=== PATIENT | female | born 1960 | race Caucasian/White ===

== ENCOUNTER 2020-03-21 08:38 | Outpatient (CLI) | payer OTHER, SELFPAY ==
--- NOTE | ~2020-03-21 | XR_ITS ---
EXAMINATION: XR hip LT min 2V DATE: 03/21/2020 09:03 INDICATION: Left hip pain. TECHNIQUE: 2 views of left hip were obtained. COMPARISON: None. FINDINGS: Bone alignment is normal. No fracture. There is mild left hip osteoarthritis. IMPRESSION: 1. Mild left hip osteoarthritis. Reviewed, dictated and finalized at location A.
[2020-03-21 10:34] LABS: Alanine Aminotransferase 25 U/L (14-59); Albumin Level 3.3 g/dL (3.4-5.0); Alkaline Phosphatase 79 U/L (46-116); Anion Gap 6 mmol/L (8-16); Aspartate Amino Transferase 12 U/L (15-37); Bilirubin,Total 0.4 mg/dL (0.00-1.00); Blood Urea Nitrogen 11 mg/dL (7-18); Calcium 8.7 mg/dL (8.5-10.1); Carbon Dioxide 31 mmol/L (21-32); Chloride 108 mmol/L (98-108); Cholesterol 173 mg/dL (0-200); Estimated Glomerular Filt Rate 56; Glucose 95 mg/dL (70-99); HDL Direct 50 mg/dL (40-60); LDL Cholesterol Calculated 92 mg/dL (<130); Magnesium 2.1 mg/dL (1.8-2.4); Osmolality Calculated 299 mOsm/kg (285-295); Potassium 4.2 mmol/L (3.5-5.1); Sodium 145 mmol/L (136-145); Total Protein 6.3 g/dL (6.4-8.2); Triglycerides 155 mg/dL (0-150)
== END 2020-03-21 08:39 | disposition home or self-care (01) ==
PROVIDERS: PCP Internal Medicine; Visit Provider Internal Medicine
DX: M25.559 Pain in unspecified hip (principal); I10 Essential (primary) hypertension
CPT/HCPCS: 36415; 73502; 80053; 80061; 83735

== ENCOUNTER 2024-06-24 08:13 | Outpatient (CLI) | payer MEDICARE, SELFPAY ==
[2024-06-24 08:26] LABS: Basophils Absolute Auto 0.03 K/mm3 (0.00-0.10); Basophils Percent Auto 0.5 % (0.0-1.0); Eosinophils Absolute Auto 0.37 K/mm3 (0.02-0.50); Eosinophils Percent Auto 5.6 % (1.0-6.0); Hematocrit 42.2 % (35.0-42.0); Hemoglobin 14.4 g/dL (11.7-13.8); Immature Granulocyte Absolute 0.02 K/mm3 (0.00-0.00); Immature Granulocyte Percent A 0.3 % (0.0-0.0); Lymphocytes Absolute Auto 2.17 K/mm3 (1.10-4.50); Lymphocytes Percent Auto 32.6 % (18.0-42.0); Mean Corpuscular HGB Conc 34.1 g/dL (32-36); Mean Corpuscular Hemoglobin 30.3 pg (27.0-31.0); Mean Corpuscular Volume 88.7 fL (78.0-102.0); Mean Platelet Volume 10.1 fl (9.2-11.8); Monocytes Absolute Auto 0.57 K/mm3 (0.10-0.90); Monocytes Percent Auto 8.6 % (2.0-11.0); Neutrophils Percent Auto 52.4 % (50.0-70.0); Platelet Count Result 202 K/mm3 (150-420); Red Blood Count 4.76 M/mm3 (4.20-5.40); Red Cell Distribution Width 12.9 % (11.6-14.4); White Blood Count 6.7 K/mm3 (4.8-10.8)
[2024-06-24 09:06] LABS: Alanine Aminotransferase 39 U/L (14-59); Albumin Level 3.4 g/dL (3.4-5.0); Alkaline Phosphatase 93 U/L (46-116); Anion Gap 9 mmol/L (4-12); Aspartate Amino Transferase 14 U/L (15-37); Bilirubin,Total 0.4 mg/dL (0.00-1.00); Blood Urea Nitrogen 9 mg/dL (7-18); Calcium 9.4 mg/dL (8.5-10.1); Carbon Dioxide 29 mmol/L (21-32); Chloride 106 mmol/L (98-108); Cholesterol 194 mg/dL (0-200); Estimated Glomerular Filt Rate 60; Glucose 84 mg/dL (70-99); HDL Direct 50 mg/dL (40-60); LDL Cholesterol Calculated 108 mg/dL (<130); Osmolality Calculated 295 mOsm/kg (285-295); Potassium 4.2 mmol/L (3.5-5.1); Sodium 144 mmol/L (136-145); Total Protein 6.1 g/dL (6.4-8.2); Triglycerides 178 mg/dL (0-150)
== END 2024-06-24 08:14 | disposition home or self-care (01) ==
PROVIDERS: PCP Internal Medicine; Visit Provider Internal Medicine
DX: I10 Essential (primary) hypertension (principal)
CPT/HCPCS: 36415; 80053; 80061; 85025

== ENCOUNTER 2024-08-03 08:48 | Emergency (ER) | payer MEDICARE, OTHER, SELFPAY ==
--- NOTE | ~2024-08-03 | XR_ITS ---
EXAMINATION: XR heel LT min 2V DATE: 08/03/2024 09:51 INDICATION: Left heel pain. TECHNIQUE: 2 views of left calcaneus were obtained. COMPARISON: None. FINDINGS: Alignment is normal. No fracture. Joint spaces are normal. There are enthesophytes at the p osterior and plantar aspects of calcaneal tuberosity. IMPRESSION: 1. No fracture. Reviewed, dictated and finalized at location A. ING MACHINE BUFFER IMPRESSION: 1. No fracture.
--- NOTE | ~2024-08-03 | XR_ITS ---
EXAMINATION: XR foot LT min 3V DATE: 08/03/2024 09:50 INDICATION: Left heel pain. TECHNIQUE: 4 views of left foot were obtained. COMPARISON: None. FINDINGS: There is moderate hallux valgus. No fracture. Joint spaces are normal. There are enthesophy johan at the posterior and plantar aspects of calcaneal tuberosity. IMPRESSION: 1. Moderate hallux valgus. Reviewed, dictated and finalized at location A. TS ANALYST IMPRESSION: 1. Moderate hallux valgus.
[2024-08-03 08:48] VITALS: BP 151/88; PULSE 75; RESP 16; TEMP 36.8; O2SAT 96
--- NOTE | 2024-08-03 08:55 | ED_ITS ---
HPI - Extremity Injury (Lower) General Chief Complaint: Extremity Injury, Lower Stated Complaint: left foot pain Time Seen by Provider: 08/03/24 08:54 Source: patient Mode of arrival: ambulatory Limitations: no limitations History of Present Illness HPI Narrative: patient is a 64-year-old female with a left foot plantar pain and calcaneus pain for the past 5 days. Her only change has been a pair of slippers that she has been using in correlation of time frame. No major injury or changes. MD complaint: other ( Left heel and plantar pain) Onset (ago): day(s) (5) Type of Injury: other ( no injury) Place: home Severity: moderate Severity scale (1-10): 5 Relieving factors: immobilization Exacerbating factors: weight bearing Context: other ( no injury occurred and worse in the morning) Associated symptoms: swelling and able to partially bear weight Other symptoms: none Treatments prior to arrival: other ( none) Related Data Home Medications ?Medication ?Instructions ?Recorded ?Confirmed ?Last Taken ?Type atorvastatin 40 mg tablet 40 mg PO QPM 03/26/24 03/26/24 Unknown History lisinopril 5 mg tablet 5 mg PO DAILY 03/26/24 03/26/24 Unknown History omeprazole 40 mg capsule,delayed 40 mg PO DAILY 03/26/24 03/26/24 Unknown History release Allergies Allergy/AdvReac Type Severity Reaction Status Date / Time No Known Allergies Allergy Verified 08/03/24 09:00 Review of Systems Review of Systems: All systems reviewed & are unremarkable except as noted in HPI and below Constitutional: Constitutional: Reports no additional constitutional complaints Eyes: Eyes: Reports no additional eye complaints ENT: Reports system reviewed and no additional complaints, except as documented Cardiovascular: Cardiovascular: Reports no additional cardiovascular complaints Respiratory: Respiratory: Reports no additional respiratory complaints Gastrointestinal: Gastrointestinal: Reports no additional gastrointestinal complaints Genitourinary: Genitourinary: Reports no additional female genitourinary complaints Musculoskeletal: Musculoskeletal: Reports no additional musculoskeletal complaints Integumentary/Breasts: Skin/Breast: Reports system reviewed and no additional complaints, except as docu Neurologic: Reports system reviewed and no additional complaints, except as documented Psychiatric: Psychiatric: Reports no additional psychiatric complaints Endocrine: Endocrine: Reports no additional endocrine complaints Hematologic/Lymphatic: Hematologic/Lymphatic: Reports no additional hematologic/lymphatic complaints Allergic/Immunologic: Allergic/Immunologic: Reports no additional allergic/immunologic complaints PMFSH Past Medical History Medical History Screening mammogram for breast cancer Hypertension Hyperlipemia Surgical History Surgical History History of tubal ligation Family History Family History Other Diabetes mellitus Family history of alcoholism Family history of cardiovascular disease Hypertension Social History Social History Smoking status: Former smoker Smoking end date: 08/05/92 Alcohol intake: never Substance use: never Substance use type: does not use Do You Feel Safe in your Home?: Yes Lack of Transportation: No Lack of Food: Never True Current Housing: I Have Housing Concerned About Future Housing: No Difficulty Paying Gas/Electric Bills: No Difficulty Paying for Meds: No Currently Unemployed: No Education: Bachelor's Degree Difficulty w/ Childcare or Family Care: No Living arrangements: with family Occupation/Education: retired Gender identity (if verbalized by the patient): Female Exam Const: General: healthy appearing Nutritional Appearance: well nourished Orientation/consciousness: patient oriented x3 HENMT: Head: normal to inspection Ears: external ears normal Face/Nose/Sinus: Normal external nose present Eyes: Conjunctivae: conjunctivae normal Pupils: Equal, round and reactive pupils present EOM: EOMs intact bilaterally Neck: Neck: normal visual inspection Chest: Chest palpation & inspection: normal inspection of the chest Resp: Effort & Inspection: normal respiratory effort and not labored Auscultation: clear to auscultation bilaterally and no crackles Cardio: Rate: regular rate Rhythm: regular rhythm Heart sounds: no murmurs GI: Inspection: non-distended GI Palp: Yes Soft to palpation and No Tenderness to palpation present (GI) Auscultation: normal bowel sounds : General: Yes bladder normal to palpation Back/Spine/Pelvis: Back: no CVA tenderness Skin: General skin exam: normal color Rashes: no rashes Wounds: no wounds Neuro: General: patient oriented x3 Cranial nerves: Yes Nystagmus not present Speech: normal speech Extrem: General: normal to inspection Other: slightly tender left plantar proximal foot as well as calcaneus but no major findings; slight swelling of the left foot; Homans sign negative and nontender or changes of the calf to suspect DVT Psych: Mental Status: mental status grossly normal Affect: normal affect Attitude: cooperative Course Vital Signs Vital signs: Vital Signs Temperature 36.8 C 08/03/24 08:48 Pulse Rate 75 08/03/24 08:48 Respiratory Rate 16 08/03/24 08:48 Blood Pressure 151/88 H 08/03/24 08:48 Pulse Oximetry 96 08/03/24 08:48 Oxygen Delivery Room Air 08/03/24 08:48 Temperature 36.8 C 08/03/24 08:48 Pulse Rate 75 08/03/24 08:48 Respiratory Rate 16 08/03/24 08:48 Blood Pressure 151/88 H 08/03/24 08:48 Pulse Oximetry 96 08/03/24 08:48 Oxygen Delivery Room Air 08/03/24 08:48 MDM - Extremity Injury (Lower) MDM Narrative Medical decision making narrative: patient is a 64-year-old female with left foot pain. We will get an x-ray. Likely this will respond to steroids if the x-ray is negative. Imaging Data Attestation: I personally reviewed and interpreted this imaging study as follows: Radiologist's impression: X-ray of the left foot and heel show osteophytes and otherwise negative for acute process Discharge Plan Discharge Clinical Impression: Plantar fasciitis, left Osteophyte Qualifiers: Osteophyte location: foot Laterality: left Qualified Code(s): M25.775 - Osteophyte, left foot Patient Disposition: Home, Self-Care Condition: Stable Instructions: Plantar Fasciitis (ED) Patient Language: Sri [place]ankan Prescriptions: New methylprednisolone [Medrol (Gilberto)] 4 mg tablets,dose pack See Rx Instructions .ROUTE .COMPLEX Qty: 21 0RF Rx Instructions: orally per package directions indomethacin 50 mg capsule 50 mg PO TID PRN (Reason: pain) Qty: 30 0RF Rx Instructions: administer with food or milk No Action lisinopril 5 mg tablet 5 mg PO DAILY omeprazole 40 mg capsule,delayed release(DR/EC) 40 mg PO DAILY atorvastatin 40 mg tablet 40 mg PO QPM Follow-up/Referrals: Sunny,MD Tacos [Primary Care Provider] - Time of Disposition: 10:54
[2024-08-03 10:58] VITALS: BP 157/78; PULSE 65; RESP 16; O2SAT 96
--- OUTSIDE RECORDS SUMMARY | 2024-08-10 17:50 | XMS_ITS | Continuity of Care Document ---
Author Name [facility] Organization [facility] Care Team Providers Care Scuba Instructor Name Role Phone [facility] Unavailable Unavailable Problems Combined list of problems from Department of Defense and Veterans Affairs facilities. It does not include entries that were removed or entered in error. Problem Status Onset Date Problem Type Date of Resolution Comments Source Laboratory Studies Inactive Condition Do D visit for: administrative purpose Inactive Condition [facility] abdominal pain Inactive Condition Diff- PUD, gallstones, pancreatitis. Labs/rads as below. Sx control w/ phenergan. ER w/ worsening episode. DoD Medications Combined list of outpatient medications from Department of Defense and Veterans Affairs facilities.Medications provided include 1) outpatient medications from the last 15 months, and 2) patient-reported medications. Medication Details Route Status Patient Instructions Prescription Expires Prescription Number Last Dispense Date Ordering Provider Order Date Order Qty Source ALBUTEROL SULFATE HFA (albuterol sulfate), 90 MCG, HFA AER AD, INHALATION, TEVA [place], 8.5 g CANISTER Cancele d [id number] : 2023 0 Pharmac y Data Transac tion Service Facilit y ALBUTEROL SULFATE HFA (albuterol sulfate), 90 MCG, HFA AER AD, INHALATION, TEVA [place], 8.5 g CANISTER Active [id number] 4 2023 8.5 Pharmac y Data Transac tion Service Facilit y AMOX TR-POTASSIU M CLAVULANATE (AMOXICILLI N/POTASSIUM CLAV), 875-125 MG, TABLET, ORAL, SANDOZ, 20 ea. BOTTLE Active [id number] 4 2023 20 Pharmac y Data Transac tion Service Facilit y atorvastati n (U/D) 40 MG ORAL TAB Take with food/mil k.Take or use exactly as directed .Obtain advice for OTCs.Do not take if .Avoid grapefru it and grapefru it juice. 07/01/2024 [id number] 3 [address] [place] [address] Maico GRIMALDO ([facility]) atorvastati n 20 mg tablet See Instruct ions, # 90 EA, 0 total refill(s ), Hard Stop Complet ed 03/31/2024 90.0 Ambulat ory Pharmac y atorvastati n 20 mg tablet 20 mg, Oral, Daily, # 90 EA, 1 total refill(s ), Hard Stop Oral (given by mouth) Discont inued 07/02/2023 90.0 Ambulat ory Pharmac y atorvastati n 40 mg tablet 40 mg, Oral, Daily, # 90 EA, 0 total refill(s ), Hard Stop Oral (given by mouth) Complet ed 05/29/2024 90.0 Ambulat ory Pharmac y atorvastati n 40 mg tablet 40 mg, Oral, Daily, # 90 EA, 1 total refill(s ), Hard Stop Oral (given by mouth) Discont inued 03/02/2024 90.0 Ambulat ory Pharmac y atorvastati n 40 mg tablet 40 mg, Oral, Daily, # 90 EA, 0 total refill(s ), Hard Stop Oral (given by mouth) Ordered 08/27/2024 90.0 Ambul at ory Pharmac y AZITHROMYCI N (azithromyc in), 250 MG, TABLET, ORAL, SANDOZ, 6 ea. BLIST PACK Cancele d [id number] : 2023 0 Pharmac y Data Transac tion Service Facilit y Benzonatate (TrabajoPanel) 100 CAPSULE in 1 BOTTLE Active [id number] 09/07/19 2 4 2023 28 Pharmac y Data Transac tion Service Facilit y Lisinopril (Brand Name) Tablet 5 mg Oral Be careful if taking OTCs.Jim e or use exactly as directed .Do not take if . 06/30/2024 [id number] 3 [address] [place] [address] Maico GRIMALDO ([facility]) lisinopril 5 mg tablet See Instruct ions, # 90 EA, 0 total refill(s ), Hard Stop Discont inued 03/02/2024 90.0 Ambulat ory Pharmac y lisinopril 5 mg tablet 5 mg, Oral, Daily, # 90 EA, 0 total refill(s ), Hard Stop Oral (given by mouth) Complet ed 05/29/2024 90.0 Ambulat ory Pharmac y lisinopril 5 mg tablet 5 mg, Oral, Daily, # 90 EA, 0 total refill(s ), Hard Stop Oral (given by mouth) Ordered 08/27/2024 90.0 Ambul at ory Pharmac y Omeprazole (Prilosec Eq.) Capsule Conventiona l 40 mg Oral Take or use exactly as directed .Obtain advice for OTCs.Swa llow whole. 06/30/2024 [id number] 3 [address] [place] [address] Maico GRIMALDO ([facility]) omeprazole DR 40 mg capsule See Instruct ions, # 90 EA, 0 total refill(s ), Hard Stop Discont inued 03/02/2024 90.0 Ambulat ory Pharmac y omeprazole DR 40 mg capsule 40 mg, Oral, Daily, # 90 EA, 0 total refill(s ), Hard Stop Oral (given by mouth) Complet ed 05/29/2024 90.0 Ambulat ory Pharmac y omeprazole DR 40 mg capsule 40 mg, Oral, Daily, # 90 EA, 0 total refill(s ), Hard Stop Oral (given by mouth) Ordered 08/27/2024 90.0 Ambul at ory Pharmac y Allergies, Adverse Reactions, Alerts Combined list of allergies from Department of Defense and Veterans Affairs facilities. It does not include entries that were removed or entered in error. Substance Category Reaction Severity Reaction type Status Date Reported Comments Source No Known Allergies Drug allergy (disorder) active 12/08/[address] [place] [address] Maico GRIMALDO ([facility]) Vital Signs Combined list of inpatient and outpatient Vital Signs from Department of Defense and Veterans Affairs, ranging from 12 months to all on record, depending upon the facility. Vital Sign Value Date Comments Source No data available for this section Ambulatory Pharmacy Encounters Combined list of: 1) Encounters from Department of Veterans Affairs facilities going back up to thelast 18 months. 2) Encounters from the Department of Defense facilities going back up to 280 months. Location Location Details Encounter Type Encounter Number Reason For Visit Attending Provider ADM Date DC Date Status Disposition Source [address] [place] [address])([facility] Non-[facility]ME [facility]) OUTPATIENT [id number] STOMACH CRAMPS WAKING UP NIGHTS JUANITALORENZO Mcdonald Ana 12/06 Released w/o Limitations [address] [place] [address] [facility]F amily Practic e Non-GME FHI1) [address] [place] [address])(Fam levi Practice Non-GME FHI1) TELE CONSULT [id number] pt wants lab results from [facility] ELIZONDOETT SIMEON 12/[address] [place] [address])(F amily Practic e Non-GME FHI1) [address] [place] [address])([facility]am [facility]vi Practice Non-GME [facility]) TELE CONSULT [id number] Lab Results CARLTON MONTOYAE 12/[address] [place] [address])(F amily Practic e Non-GME FHI1) Procedures Combined list of: 1) Procedures from Department of Veterans Affairs facilities [facility], not all [place] non-surgical procedures are included; 2) All procedures from the Department of Defense facilities. Procedure Procedure Type Code Date Perfomer Comments Sourc e No data available for this section Ambulatory P harmacy Social History Combined list of available smoking, tobacco, and other social history from Department of Defense and Veterans Affairs facilities. Social History Type Response Date Comment Sourc e This section is an empty social history section. DoD Assessment and Plan Combined list of future care activities from Department of Defense and Veterans Affairs facilities (e.g., assessment and plan notes, appointments, orders, and referrals). Additional future care activities may be listed in the Plan of Care section. Result Assessment and Plan Date Source Assessment and Plan No data available for this section 08/10/2024 Ambulatory Pharmacy Functional Status Combined list of recent functional and cognitive assessments recorded at [facility] Defense and [facility] ([place]).[facility] Functional Marshall Measurement (FIM) Scale: 1 = Total Assistance (Subject = 0% +), 2 = Maximal Assistance (Subject = 25% +), 3 = Moderate Assistance (Subject = 50% +), 4 = Minimal Assistance (Subject = 75% +), 5 = Supervision, 6 = Modified Marshall (Device), 7 = Complete Marshall (Timely, Safely). Assessment Date/Time Source Assessment Type Assessment Skill Assessment Score Assessment Details No data available for this section
--- OUTSIDE RECORDS SUMMARY | 2024-08-10 17:51 | XMS_ITS | Encounter Summary ---
Author Organization [facility] Address [address] [place] [address] Care Team Providers Care Metrology Engineer Name Role Phone Tacos Correa MD Primary Care Provider [phone] Reason for Visit * Reason Comments Toe Injury The patient hit her right great toe on a door, it happened a week ago. Encounter Details Date Type Department Care Team (Late st Contact Info) Description 01/15/2018 1:45 PM CDT Office Visit [facility] [address] [place] [address] [place] [address] Fredrick Lloyd NP [address] [place], [place] [id number] Paronychia of great toe, right (Primary Dx) Social History Tobacco Use Types Packs/Day Years Used Date Smoking Tobacco: Former Smokeless Tobacco: Never Comments Unknown Sex and Gender Information Value Date Recorded Sex Assigned at Not on file Legal Sex Female 1:40 PM CDT Gender Identity Not on file Sexual Orientation Not on file documented as of this encounter Last Filed Vital Signs Vital Sign Reading Time Taken Comments Blood Pressure 140/84 01/15/2018 1:53 PM CDT Pulse 67 01/15/2018 1:53 PM CDT Temperature 36.7 ??C (98 ??F) 01/15/2018 1:53 PM CDT Respiratory Rate 16 01/15/2018 1:53 PM CDT Oxygen Saturation 97% 01/15/2018 1:53 PM CDT Inhaled Oxygen Concentration - - Weight 93.4 kg (205 lb 12.8 oz) 01/15/2018 1:53 PM CDT Height 163.8 cm (5' 4.5 ) 01/15/2018 1:53 PM CDT Body Mass Index 34.78 01/15/2018 1:53 PM CDT documented in this encounter Patient Instructions * Patient Instructions* Fredrick Lloyd, PIPER INSTALLER - 01/15/2018 2:11 PM CDT Take the antibiotic as directed, use the topical antibiotic as directed. If you get increased pain or swelling in area with streaking go to the emergency department. Follow up with your PCP if not improving. Patient Education Paronychia WHAT YOU NEED TO KNOW: What is paronychia? Paronychia is an infection of your nail fold caused by bacteria or a fungus. The nail fold is the skin around your nail. Paronychia may happen suddenly and last for 6 weeks or longer. You may have paronychia on more than 1 finger or toe. What increases my risk for paronychia? ?? Trauma: Any injury that causes your skin to tear can lead to infection. Your risk is increased if you have ingrown nails, bite your nails, or wear acrylic nails. ?? Frequent contact with water: Jobs that require you to soak your hands in water often may increase your risk for paronychia. Common examples are nurses, cooks, and in house counsel. Swimmers also have increased risk. ?? Medical conditions: Diabetes and other conditions that cause a weak immune system can increase your risk. Some examples are skin cancer, psoriasis, HIV, and lupus. ?? Chemicals: Contact with soaps, detergents, and other chemicals can cause inflammation and lead to paronychia. ?? Allergies: Allergies to certain foods, nail maltese, or latex can cause inflammation and increaseyour risk. What are the signs and symptoms of paronychia? ?? Red, hot, swollen, painful nail fold ?? Pus coming out of your nail fold when you press on it ?? Nail that pulls away from your nail fold and may fall off ?? Changes in nail color, such as green nails ?? Fever ?? Thick, rough nail, or ridges in the nail How is paronychia diagnosed? Your healthcare provider will examine your nails and ask about your symptoms. He may press on your infected nail to see if pus drains from it. He will send any pus to a lab for tests to learn what germ is causing your infection. This is called a fluid culture. How is paronychia treated? ?? Medicine: ?? Td vaccine is a booster shot used to help prevent tetanus and diphtheria. The Td booster may be given to adolescents and adults every 10 years or for certain wounds and injuries. ?? Antibiotics: This medicine will help fight or prevent an infection caused by bacteria. It may begiven as a pill, cream, or ointment. ?? Steroids: This medicine will help decrease inflammation. It may be given as a pill, cream, or ointment. ?? Antifungal medicine: This medicine helps kill fungus that may be causing your infection. It may be given as a cream or ointment. ?? NSAIDs: These medicines decrease pain and swelling. NSAIDs are available without a doctor's order. Ask your healthcare provider which medicine is right for you. Ask how much to take and when to take it. Take as directed. NSAIDs can cause stomach bleeding and kidney problems if not taken correctly. ?? Procedures: You may need surgery to drain an abscess (pus pocket) in your finger or toe. Your nail may need to be removed. Infected tissue around your nail may also need to be removed. What are the risks of paronychia? Your nail may become loose, deformed, or fall off. The infection may form a large abscess on your nail. The infection may spread to nearby tissue and bone. How can paronychia be prevented? ?? Avoid chemicals and allergens that may harm your skin and nails. This includes soaps, laundry detergents, and nail products. ?? Keep your nails clean and dry. Do not soak your nails in water. Use cotton- lined rubber gloves or wear 2 rubber gloves if you work with food or water. The gloves will help protect your nail folds. ?? Keep your nails short. Do not bite your nails, pick at your hangnails, suck your fingers, or wear fake nails. Bring your own nail tools when you go to the nail salon. How can I manage my symptoms? ?? Soak your nail: Soak your nail in a mixture of equal parts vinegar and water 3 or 4 times each day. This will help decrease inflammation. ?? Apply a warm compress: Soak a washcloth in warm water and place it on your nail. This will help decrease inflammation. ?? Elevate: Raise your nail above the level of your heart as often as you can. This will help decrease swelling and pain. Prop your nail on pillows or blankets to keep it elevated comfortably. ?? Use lotion: Apply lotion after you wash your hands. This will prevent the skin from becoming toodry. When should I contact my healthcare provider? ?? Your nail becomes loose, deformed, or falls off. ?? You have a large abscess on your nail. ?? You have questions or concerns about your condition or care. When should I seek immediate care? ?? You have severe nail pain. ?? The inflammation spreads to your hand or arm. CARE AGREEMENT: You have the right to help plan your care. Learn about your health condition and how it may be treated. Discuss treatment options with your caregivers to decide what care you want to receive. You always have the right to refuse treatment. The above information is an surgery aide only. It is not intended as medical advice for individual conditions or treatments. Talk to your doctor, nurse or pharmacist before following any medical regimen to see if it is safe and effective for you. ?? 2016 [employer]. Information is for End User's use only and may not be sold, redistributed or otherwise used for commercial purposes. All illustrations and images included in CareNotes?? are the copyrighted property of [employer] or [employer]. documented in this encounter Ordered Prescriptions Prescription Sig Dispense Quantity Refills Last Filled Start Date End Date sulfamethoxazole-t rimethoprim (BACTRIM,SEPTRA) 800-160 mg per tabletIndications: Paronychia of great toe, right Take 1 tablet by mouth 2 (two) times a day for 7 days. 14 tablet 01/15/2018 8 mupirocin (BACTROBAN) 2 % ointmentIndication s:Paronychia of great toe, right Apply topically 3 (three) times a day for 10 days. 22 g 01/15/2018 8 documented in this encounter Progress Notes * Fredrick Lloyd, PIPER INSTALLER - 01/15/2018 1:45 PM CDT Images from the original note were not included. Subjective Patient ID: Olinda Martin is a 57 y.o. female. Toe Injury (The patient hit her right great toe on a door, it happened a week ago.) Hit great toe on right foot on bottom of a door last week has had some drainage, increased pain andheat in area for the past 3 days. Tired topical antibiotic on area without relief. No fever systemically. Review of Systems Constitutional: Negative for activity change, fatigue and fever. HENT: Negative for congestion. Respiratory: Negative for shortness of breath. Cardiovascular: Negative for chest pain. Gastrointestinal: Negative for abdominal pain. Genitourinary: Negative for dysuria. Musculoskeletal: Negative for back pain. Skin: Positive for wound (right great toe). Neurological: Negative for headaches. Psychiatric/Behavioral: Negative for behavioral problems. Objective Physical Exam Constitutional: She is oriented to person, place, and time. She appears well- developed and well-nourished. HENT: Head: Normocephalic. Eyes: Conjunctivae are normal. Neck: Normal range of motion. Cardiovascular: Normal rate, regular rhythm and normal heart sounds. Pulmonary/Chest: Effort normal and breath sounds normal. Abdominal: Soft. Musculoskeletal: Normal range of motion. Feet: Neurological: She is alert and oriented to person, place, and time. Skin: Skin is warm and dry. No rash noted. Psychiatric: She has a normal mood and affect. Vitals: 01/15/18 1353 BP: 140/84 BP Location: Right arm Patient Position: Sitting Pulse: 67 Resp: 16 Temp: 36.7 ??C (98 ??F) TempSrc: Oral SpO2: 97% Weight: 93.4 kg (205 lb 12.8 oz) Height: 163.8 cm (5' 4.5 ) Assessment/Plan Diagnoses and all orders for this visit: Paronychia of great toe, right (Primary) - mupirocin (BACTROBAN) 2 % ointment; Apply topically 3 (three) times a day for 10 days. - sulfamethoxazole-trimethoprim (BACTRIM,SEPTRA) 800-160 mg per tablet; Take 1 tablet by mouth 2 (two) times a day for 7 days. Take the antibiotic as directed, use the topical antibiotic as directed. If you get increased pain or swelling in area with streaking go to the emergency department. Follow up with your PCP if not improving. No notes on file documented in this encounter Plan of Treatment Not on file documented as of this encounter Visit Diagnoses Diagnosis Paronychia of great toe, right- Primary documented in this encounter Historical Medications * This list may reflect changes made after this encounter. Medication Sig Dispense Quantity Refills Last Filled Start D ate End Date ergocalciferol (VITAMIN D) 50,000 unit capsule 01/06/2018 omeprazole (PriLOSEC) 20 mg capsule 11/12/2017 atorvastatin (LIPITOR) 10 mg tablet 10/24/2017 lisinopril (PRINIVIL,ZESTRIL) 5 mg tablet 10/24/2017 added in this encounter Care Teams Metrology Engineer Relationship Specialty Start Date End Date Tacos Correa MD PCP - General Internal Medicine 01/15/18 documented as of this encounter
--- OUTSIDE RECORDS SUMMARY | 2024-08-10 17:51 | XMS_ITS | Clinical Summary ---
Author Organization [id number] Address [address] [place] [address] Care Team Providers Care Sliver Lap Machine Tender Name Role Phone Tacos Correa MD Primary Care Provider [phone] Allergies No known active allergies Medications lisinopril (PRINIVIL,ZESTRIL) 5 mg tablet 10/24/2017 Active atorvastatin (LIPITOR) 10 mg tablet 10/24/2017 Active omeprazole (PriLOSEC) 20 mg capsule 11/12/2017 Active ergocalciferol (VITAMIN D) 50,000 unit capsule 01/06/2018 Active Active Problems No known active problems Surgical History Surgery Date Site/Laterality Comments TUBAL LIGATION Medical History Medical History Date Comments Hyperlipidemia Hypertension GERD (gastroesophageal reflux disease) Family History Medical History Relation Name Comments Diabetes Father Relation Name Status Comments Father Social History Tobacco Use Types Packs/Day Years Used Date Smoking Tobacco: Former Smokeless Tobacco: Never Personal Safety Answer Date Recorded Getting School Help Needed Not on file 10/19 Comments Unknown Sex and Gender Information Value Date Recorded Sex Assigned at Not on file Legal Sex Female 1:40 PM CDT Gender Identity Not on file Sexual Orientation Not on file Obstetrics History Last Filed Vital Signs Vital Sign Reading [...] Mass Index 34.78 01/15/2018 1:53 PM CDT Plan of Treatment Not on file Insurance Care Teams Sliver Lap Machine Tender Relationship Specialty Start Date End Date Tacos Correa MD PCP - General Internal Medicine 01/15/18
--- OUTSIDE RECORDS SUMMARY | 2024-08-10 17:51 | XMS_ITS | Referral Summary ---
Author Organization [facility] [address] [place] Address [address] [place] [phone] Care Team Providers Care Reforestation Worker Name Role Phone Tacos Correa MD Primary Care Provider [phone] Allergies No known active allergies Medications lisinopril (PRINIVIL,ZESTRIL) 5 mg tablet 10/24/2017 Active atorvastatin (LIPITOR) 10 mg tablet 10/24/2017 Active omeprazole (PriLOSEC) 20 mg capsule 11/12/2017 Active ergocalciferol (VITAMIN D) 50,000 unit capsule 01/06/2018 Active Active Problems No known active problems Social History Tobacco Use Types Packs/Day Years Used Date Smoking Tobacco: Former Smokeless Tobacco: Never Personal Safety Answer Date Recorded Getting School Help Needed Not on file 10/19 Comments Unknown Sex and Gender Information Value Date Recorded Sex Assigned at Not on file Legal Sex Female 1:40 PM CDT Gender Identity Not on file Sexual Orientation Not on file Last Filed Vital Signs Vital Sign Reading [...] Treatment Not on file Insurance Care Teams Reforestation Worker Relationship Specialty Start Date End Date Tacos Correa MD PCP - General Internal Medicine 01/15/18
--- OUTSIDE RECORDS SUMMARY | 2024-08-10 20:33 | XMS_ITS | Encounter Summary ---
Author Organization [facility] Address [address] [place] [address] [place] [address] Care Team Providers Care Land Department Head Name Role Phone Tacos Correa MD Primary Care Provider [phone] Reason for Visit * Reason Comments Toe Injury The patient hit her right great toe on a door, it happened a week ago. Encounter Details Date Type Department Care Team (Late st Contact Info) Description 01/15/2018 1:45 PM CDT Office Visit [facility] [address] [place] [address] [place] [address] Fredrick Lloyd NP [address] [facility] [place], [place] [id number] Paronychia of great toe, right (Primary Dx) [...] Patient Instructions * Patient Instructions* Fredrick Lloyd, COMPUTER AIDED DRAFTER - 01/15/2018 2:11 PM CDT Take the [...] paronychia. Common examples are nurses, cooks, and baker bread. Swimmers also have increased risk. ?? Medical conditions: Diabetes and other conditions that cause a weak immune system can increase your risk. Some examples are skin cancer, psoriasis, HIV, and lupus. ?? Chemicals: Contact with soaps, detergents, and other chemicals can cause inflammation and lead to paronychia. ?? Allergies: Allergies to certain foods, nail armenian, or latex can cause inflammation and increaseyour [...] refuse treatment. The above information is an kennel aide only. It is not intended as medical advice for individual conditions or treatments. Talk to your doctor, nurse or pharmacist before following any medical regimen to see if it is safe and effective for you. ?? 2016 [employer]. Information is for End User's use only and may not be sold, redistributed or otherwise used for commercial purposes. All illustrations and images included in CareNotes?? are the copyrighted property of [employer] or [employer]. documented in this encounter Ordered Prescriptions Prescription [...] this encounter Progress Notes * Fredrick Lloyd, COMPUTER AIDED DRAFTER - 01/15/2018 1:45 PM CDT Images from [...] 10/24/2017 added in this encounter Care Teams Land Department Head Relationship Specialty Start Date End Date Tacos Correa MD PCP - General Internal Medicine 01/15/18 documented as of this encounter
--- OUTSIDE RECORDS SUMMARY | 2024-08-10 20:33 | XMS_ITS | Referral Summary ---
Author Organization [facility] [address] [place] Address [address] [place] [address] Care Team Providers Care Flatbed Driver Name Role Phone Tacos Correa MD Primary Care Provider [phone] Allergies No known active allergies Medications lisinopril [...] Treatment Not on file Insurance Care Teams Flatbed Driver Relationship Specialty Start Date End Date Tacos Correa MD PCP - General Internal Medicine 01/15/18
--- OUTSIDE RECORDS SUMMARY | 2024-08-10 20:33 | XMS_ITS | Continuity of Care Document ---
Author Name [facility] Organization [facility] Care Team Providers Care Sole Edge Inker Machine Name Role Phone [facility] Unavailable Unavailable Problems Combined list of problems from Department of Defense and Veterans Affairs facilities. It does not include entries that were removed or entered in error. Problem Status Onset Date Problem Type Date of Resolution Comments Source Laboratory Studies Inactive Condition Do D visit for: administrative purpose Inactive Condition [facility] abdominal pain Inactive Condition Diff- PUD, gallstones, [...] TEVA [place], 8.5 g CANISTER Cancele d [id number] : 2023 0 Pharmac y Data Transac tion Service Facilit y ALBUTEROL SULFATE HFA (albuterol sulfate), 90 MCG, HFA AER AD, INHALATION, TEVA [place], 8.5 g CANISTER Active [id number] 4 2023 8.5 Pharmac y Data Transac tion Service Facilit y AMOX TR-POTASSIU M CLAVULANATE (AMOXICILLI N/POTASSIUM CLAV), 875-125 MG, TABLET, ORAL, SANDOZ, 20 ea. BOTTLE Active [id number] 4 2023 20 Pharmac y Data Transac tion Service Facilit y atorvastati n (U/D) 40 MG ORAL TAB Take with food/mil k.Take or use exactly as directed .Obtain advice for OTCs.Do not take if .Avoid grapefru it and grapefru it juice. 07/01/2024 [id number] 3 [address] [place] [address] Ma[facility] GRIMALDO ([facility]) atorvastati n 20 mg tablet See [...] SANDOZ, 6 ea. BLIST PACK Cancele d [id number] : 2023 0 Pharmac y Data Transac tion Service Facilit y Benzonatate ([email or web address]) 100 CAPSULE in 1 BOTTLE Active [id number] 09/07/19 2 4 2023 28 Pharmac y Data Transac tion Service Facilit y Lisinopril (Brand Name) Tablet 5 mg Oral Be careful if taking OTCs.Jim e or use exactly as directed .Do not take if . 06/30/2024 [id number] 3 [address] [place] [address] Maico GRIMALDO ([facility]) lisinopril 5 mg tablet See Instruct [...] .Obtain advice for OTCs.Swa llow whole. 06/30/2024 [id number] 3 [address] [place] [address] Maico GRIMALDO ([facility]) omeprazole DR 40 mg capsule See [...] Known Allergies Drug allergy (disorder) active 12/08/[address] [place] [address] Maico GRIMALDO ([facility]) Vital Signs Combined list of inpatient [...] ADM Date DC Date Status Disposition Source [address] [place] [address])(Fam levi Practice Non-GME FHI1) OUTPATIENT [id number] STOMACH CRAMPS WAKING UP NIGHTS JUANITALORENZO Mcdonald Ana 12/06 Released w/o Limitations [address] [place] [address] [facility])(F amily Practic e Non-GME FHI1) [address] [place] [address])(Fam levi Practice Non-GME FHI1) TELE CONSULT [id number] pt wants lab results from salbador ELIZONDOETT SIMEON 12/[address] [place] [address])(F amily Practic e Non-GME FHI1) [address] [place] [address])(Fam levi Practice Non-GME FHI1) TELE CONSULT [id number] Lab Results CARLTON MONTOYAE 12/[address] [place] [address])(F amily Practic e Non-GME FHI1) Procedures Combined list of: 1) Procedures from Department of Veterans Affairs facilities [facility], not all [place] non-surgical procedures are included; 2) All procedures [...] Plan No data available for this section 08/11/2024 Ambulatory Pharmacy Functional Status Combined list of recent functional and cognitive assessments recorded at Department of Defense and Veterans Affairs ([place] Functional [place] Measurement (FIM) Scale: 1 = Total Assistance (Subject = 0% +), 2 = Maximal Assistance (Subject = 25% +), 3 = Moderate Assistance (Subject = 50% +), 4 = Minimal Assistance (Subject = 75% +), 5 = Supervision, 6 = Modified [place] (Device), 7 = Complete [place] (Timely, Safely). Assessment Date/Time Source Assessment Type Assessment Skill Assessment Score Assessment Details No data available for this section
--- OUTSIDE RECORDS SUMMARY | 2024-08-10 20:33 | XMS_ITS | Data Portability ---
Author Organization [place] - [facility], Main Office Address [address] [place] [address] Assessment Encounter Date Assessment Date Assessment LastModified by Organization Details LastModified Time 02/13/2023 02/13/2023 Continue current therapy diagnosis discussed she can add Pepcid at night follow-up with me in 6 months if she has more breakthrough pain GERD she will call [email or web address] Not available 02/14/2023 19:33:05 06/19/2023 06/19/2023 Will continue current therapy follow-up 6 months blood work ordered [email or web address] Not available 06/25/2023 17:09:58 Plan of Treatment Reminders Order Date Submit Date Provider Last Modified By Organization Details Last Modified Time Details Appointments None recorded . Lab CMP, serum or plasma 023 06/19/20 [facility] (Lab), [address] [place], [address], 3 15:08:57 lipid panel, serum 023 06/19/20 [facility] (Lab), [address] [place], [address], 3 15:09:08 Referral None recorded . Procedures None recorded . Surgeries None recorded . Imaging None recorded . Medication Orders None recorded . Patient TargetsNo targets recorded. Patient InstructionsNo instructions recorded. Reason for Referral None Reported. Results Created Date Observation Date Name Description Value Unit Range Abnormal Flag Note LastModifiedBy Organization Detail LastModifiedTime 10/06/19 22 10/05/2021 T3 FREE free T3 4.1 pg/mL 2.77-5 .27 Not Available [facility] (Lab) [address] [place], [address], 10/05/2021 12:40:09 10/06/19 22 10/05/2021 T4 FREE free T4 0.89 NG/dL 0.78-2 .19 Not Available [facility] (Lab) [address] [place], [address], 10/05/2021 12:23:49 10/06/19 22 10/05/2021 LIPID PANEL LDL cholesterol, calculated 96 mg/dL 0-130 NIH ALEXANDR NSUS REPOR T RECOM MENDA TIONS FOR LDL: ADULT CHILD LOW RISK <130 <110 (OPTI MAL LDL) <100 ----- BORDE RLINE : 130-1 59 ----- HIGH RISK: >160 >130 A TRIGL YCERI DE RESUL T >400 INVAL IDATE S THE CALCU LATIO N FOR LDL FRACT IONAT ION - THE LDL RESUL T WILL NOT BE REPOR GEORGE. Not Available [facility] (Lab) [address] [place], [address], 10/05/2021 12:05:08 10/06/19 22 10/05/2021 LIPID PANEL cholesterol 189 mg/dL 140-19 9 NIH ALEXANDR NSUS RECOM MENDA TION FOR TODD STERO L: ADULT CHILD LOW RISK: <200 <170 BORDE RLINE : <200- 239 ----- HIGH RISK: >240 >200 Not Available [facility] (Lab) [address] [place], [address], 10/05/2021 12:05:08 10/06/19 22 10/05/2021 LIPID PANEL triglyceride s 204 mg/dL 0-150 high NIH ALEXANDR NSUS REPOR T RECOM MENDA TION FOR TRIGL YCERI VALDEZ: ADULT CHILD LOW RISK: <150 ----- BODER LINE: 150-1 99 ----- HIGH RISK: >200 ----- Not Available [facility] (Lab) [address] [place], [address], 10/05/2021 12:05:08 10/06/19 22 10/05/2021 LIPID PANEL HDL cholesterol 52 mg/dL 40- Not Available [facility] (Lab) [address] [place], [address], 10/05/2021 12:05:08 10/06/19 22 10/05/2021 CBC/C OMPLE TE BLD COUNT W/DIF F white blood cells 7.7 x10'3 /uL 4.2-10 .8 Not Available [facility] (Lab) [address] [place], [address], 10/05/2021 10:11:29 10/06/19 22 10/05/2021 CBC/C OMPLE TE BLD COUNT W/DIF F red blood cells 4.81 x10'6 /uL 3.80-5 .20 Not Available [facility] (Lab) [address] [place], [address], 10/05/2021 10:11:29 10/06/19 22 10/05/2021 CBC/C OMPLE TE BLD COUNT W/DIF F hemoglobin 14.5 g/dL 12.0-1 5.6 Not Available [facility] (Lab) [address] [place], [address], 10/05/2021 10:11:29 10/06/19 22 10/05/2021 CBC/C OMPLE TE BLD COUNT W/DIF F hematocrit 43.8 % 35.7-4 5.7 Not Available [facility] (Lab) [address] [place], [address], 10/05/2021 10:11:29 10/06/19 22 10/05/2021 CBC/C OMPLE TE BLD COUNT W/DIF F mean red cell volume 91.1 fL 82.0-9 9.0 Not Available [facility] (Lab) [address] [place], [address], 10/05/2021 10:11:29 10/06/19 22 10/05/2021 CBC/C OMPLE TE BLD COUNT W/DIF F mean red cell hemoglobin 30.1 pg 27.0-3 3.0 Not Available [facility] (Lab) [address] [place], [address], 10/05/2021 10:11:29 10/06/19 22 10/05/2021 CBC/C OMPLE TE BLD COUNT W/DIF F mean RBC HGB concentratio n 33.1 g/dL 31.0-3 6.0 Not Available [facility] (Lab) [address] [place], [address], 10/05/2021 10:11:29 10/06/19 22 10/05/2021 CBC/C OMPLE TE BLD COUNT W/DIF F red cell distribution width 13.3 % 11.8-1 5.5 Not Available [facility] (Lab) [address] [place], [address], 10/05/2021 10:11:29 10/06/19 22 10/05/2021 CBC/C OMPLE TE BLD COUNT W/DIF F platelets 219 x10'3 /uL 150-40 0 Not Available [facility] (Lab) [address] [place], [address], 10/05/2021 10:11:29 10/06/19 22 10/05/2021 CBC/C OMPLE TE BLD COUNT W/DIF F mean platelet volume 10.2 fL 9.0-12 .4 Not Available [facility] (Lab) [address] [place], [address], 10/05/2021 10:11:29 10/06/19 22 10/05/2021 CBC/C OMPLE TE BLD COUNT W/DIF F neutrophils 57.3 % 39.0-7 2.0 Not Available [facility] (Lab) [address] [place], [address], 10/05/2021 10:11:29 10/06/19 22 10/05/2021 CBC/C OMPLE TE BLD COUNT W/DIF F lymphocytes 28.3 % 16.0-4 7.0 Not Available [facility] (Lab) [address] [place], [address], 10/05/2021 10:11:29 10/06/19 22 10/05/2021 CBC/C OMPLE TE BLD COUNT W/DIF F monocytes 8.1 % 5.0-12 .0 Not Available [facility] (Lab) [address] [place], [address], 10/05/2021 10:11:29 10/06/19 22 10/05/2021 CBC/C OMPLE TE BLD COUNT W/DIF F eosinophils 5.5 % 1.0-7. 0 Not Available [facility] (Lab) [address] [place], [address], 10/05/2021 10:11:29 10/06/19 22 10/05/2021 CBC/C OMPLE TE BLD COUNT W/DIF F basophils 0.4 % 0.0-2. 0 Not Available [facility] (Lab) [address] [place], [address], 10/05/2021 10:11:29 10/06/19 22 10/05/2021 CBC/C OMPLE TE BLD COUNT W/DIF F immature granulocytes 0.4 % 0.00-0 .50 Not Available [facility] (Lab) [address] [place], [address], 10/05/2021 10:11:29 10/06/19 22 10/05/2021 CBC/C OMPLE TE BLD COUNT W/DIF F neutrophils, absolute count 4.41 x10'3 /uL 1.5-8. 0 Not Available [facility] (Lab) [address] [place], [address], 10/05/2021 10:11:29 10/06/19 22 10/05/2021 CBC/C OMPLE TE BLD COUNT W/DIF F lymphocytes, absolute count 2.18 x10'3 /uL 1.07-3 .43 Not Available [facility] (Lab) [address] [place], [address], 10/05/2021 10:11:29 10/06/19 22 10/05/2021 CBC/C OMPLE TE BLD COUNT W/DIF F monocytes, absolute count 0.62 x10'3 /uL 0.29-0 .99 Not Available [facility] (Lab) [address] [place], [address], 10/05/2021 10:11:29 10/06/19 22 10/05/2021 CBC/C OMPLE TE BLD COUNT W/DIF F eosinophils, absolute count 0.42 x10'3 /uL 0.02-0 .53 Not Available [facility] (Lab) [address] [place], [address], 10/05/2021 10:11:29 10/06/19 22 10/05/2021 CBC/C OMPLE TE BLD COUNT W/DIF F basophils, absolute count 0.03 x10'3 /uL 0.01-0 .08 Not Available [facility] (Lab) [address] [place], [address], 10/05/2021 10:11:29 10/06/19 22 10/05/2021 CBC/C OMPLE TE BLD COUNT W/DIF F immature granulocytes ,absolute 0.03 x10'3 /uL 0.00-0 .05 Not Available [facility] (Lab) [address] [place], [address], 10/05/2021 10:11:29 10/06/19 22 10/05/2021 CBC/C OMPLE TE BLD COUNT W/DIF F nucleated red blood cells 0.0 % -0 Not Available [facility] (Lab) [address] [place], [address], 10/05/2021 10:11:29 10/06/19 22 10/05/2021 CBC/C OMPLE TE BLD COUNT W/DIF F NRBC# 0.00 x10'3 /uL Not Available [facility] (Lab) [address] [place], [address], 10/05/2021 10:11:29 10/06/19 22 10/05/2021 TSH thyroid-stim ulating hormone 2.730 uIU/m L 0.465- 4.680 Not Available [facility] (Lab) [address] [place], [address], 10/05/2021 12:31:18 10/06/19 22 10/05/2021 MAGNE SIUM magnesium 2.1 mg/dL 1.6-2. 3 Not Available [facility] (Lab) [address] [place], [address], 10/05/2021 12:05:12 10/06/19 22 10/05/2021 COMPR EHENS SELVIN METAB OLIC PANEL sodium 143 mmol/ L 137-14 5 Not Available [facility] (Lab) [address] [place], [address], 10/05/2021 12:04:59 10/06/19 22 10/05/2021 COMPR EHENS SELVIN METAB OLIC PANEL potassium 4.4 mmol/ L 3.5-5. 1 Not Available [facility] (Lab) [address] [place], [address], 10/05/2021 12:04:59 10/06/19 22 10/05/2021 COMPR EHENS SELVIN METAB OLIC PANEL chloride 108 mmol/ L 98-107 high Not Available [facility] (Lab) [address] [place], [address], 10/05/2021 12:04:59 10/06/19 22 10/05/2021 COMPR EHENS SELVIN METAB OLIC PANEL carbon dioxide 29 mmol/ L 22-30 Not Available [facility] (Lab) [address] [place], [address], 10/05/2021 12:04:59 10/06/19 22 10/05/2021 COMPR EHENS SELVIN METAB OLIC PANEL agap 10.4 mmol/ L 14-22 low Not Available [facility] (Lab) [address] [place], [address], 10/05/2021 12:04:59 10/06/19 22 10/05/2021 COMPR EHENS SELVIN METAB OLIC PANEL glucose 84 mg/dL 70-99 Not Available [facility] (Lab) [address] [place], [address], 10/05/2021 12:04:59 10/06/19 22 10/05/2021 COMPR EHENS SELVIN METAB OLIC PANEL BUN 11 mg/dL 8-19 Not Available [facility] (Lab) [address] [place], [address], 10/05/2021 12:04:59 10/06/19 22 10/05/2021 COMPR EHENS SELVIN METAB OLIC PANEL creatinine 0.81 mg/dL 0.66-1 .25 Not Available [facility] (Lab) [address] [place], [address], 10/05/2021 12:04:59 10/06/19 22 10/05/2021 COMPR EHENS SELVIN METAB OLIC PANEL bilirubin, total 0.30 mg/dL 0.20-1 .30 Not Available [facility] (Lab) [address] [place], [address], 10/05/2021 12:04:59 10/06/19 22 10/05/2021 COMPR EHENS SELVIN METAB OLIC PANEL GFR >60 Refer ence Range : [place] ge GFR Healt hy Adult : >60 mL/mi n/1.7 3 m2 Chron ic Kidne y Disea se: 15-60 mL/mi n/1.7 3 m2 Kidne y Failu re: <15/m L/min /1.73 m2 www.n iddk. nih.g ov The MDRD study equat ion has not been valid ated in child malina <18 years of age; pregn ant women ; the elder ly >85 years of age; or in some racia l or ethni c subgr oups, such as Hispa nics. Outsi de the valid ated alyssia eters , estim ated GFR is less accur ate, requi ring clini may judgm ent on a case- by-ca se basis . Clini may inter preta tion for other races and ages must be made by the clini ari. The MDRD study equat ion has not been valid ated for the evalu ation of serum creat inine relat ed to nutri anant l statu s or medic ation usage . For perso ns <18 years of age, a pedia tric GFR calcu lator is avail able on the [facility] websi te: https :[email or web address] matthewsal s/kdo qi/gf r_cal culat or Not Available [facility] (Lab) [address] [place], [address], 10/05/2021 12:04:59 10/06/19 22 10/05/2021 COMPR EHENS SELVIN METAB OLIC PANEL alkaline phosphatase 76 U/L 38-126 Not Available [facility] (Lab) [address] [place], [address], 10/05/2021 12:04:59 10/06/19 22 10/05/2021 COMPR EHENS SELVIN METAB OLIC PANEL alanine aminotransfe rase 26 U/L 0-35 Not Available [facility] (Lab) [address] [place], [address], 10/05/2021 12:04:59 10/06/19 22 10/05/2021 COMPR EHENS SELVIN METAB OLIC PANEL aspartate aminotransfe rase 24 U/L 15-37 Not Available [facility] (Lab) [address] [place], [address], 10/05/2021 12:04:59 10/06/19 22 10/05/2021 COMPR EHENS SELVIN METAB OLIC PANEL calcium 9.7 mg/dL 8.4-10 .2 Not Available [facility] (Lab) [address] [place], [address], 10/05/2021 12:04:59 10/06/19 22 10/05/2021 COMPR EHENS SELVIN METAB OLIC PANEL total protein 6.8 g/dL 6.3-8. 2 Not Available [facility] (Lab) [address] [place], [address], 10/05/2021 12:04:59 10/06/19 22 10/05/2021 COMPR EHENS SELVIN METAB OLIC PANEL albumin 4.1 g/dL 3.0-4. 4 Not Available [facility] (Lab) [address] [place], [address], 10/05/2021 12:04:59 10/06/19 22 10/05/2021 COMPR EHENS SELVIN METAB OLIC PANEL globulin 2.7 g/dL 2.6-4. 2 Not Available [facility] (Lab) [address] [place], [address], 10/05/2021 12:04:59 10/06/19 22 10/05/2021 COMPR EHENS SELVIN METAB OLIC PANEL A/G ratio 1.5 ratio 1.0-2. 0 Not Available [facility] (Lab) [address] [place], [address], 10/05/2021 12:04:59 10/06/1910/05/2021 BNP/B -NATR IURET IC PEPTI DE BNP 59 pg/mL 4-125 Not Available [facility] (Lab) [address] [place], [address], 10/05/2021 10:47:46 08/15/19 23 08/15/2022 CBC/C OMPLE TE BLD COUNT W/DIF F mean RBC HGB concentratio n 33.2 g/dL 31.0-3 6.0 Not Available [facility] (Lab) [address] [place], [address], 08/15/2022 13:19:12 08/15/19 23 08/15/2022 CBC/C OMPLE TE BLD COUNT W/DIF F white blood cells 8.3 x10'3 /uL 4.2-10 .8 Not Available [facility] (Lab) [address] [place], [address], 08/15/2022 13:19:12 08/15/19 23 08/15/2022 CBC/C OMPLE TE BLD COUNT W/DIF F red blood cells 5.03 x10'6 /uL 3.80-5 .20 Not Available [facility] (Lab) [address] [place], [address], 08/15/2022 13:19:12 08/15/19 23 08/15/2022 CBC/C OMPLE TE BLD COUNT W/DIF F hemoglobin 15.2 g/dL 12.0-1 5.6 Not Available [facility] (Lab) [address] [place], [address], 08/15/2022 13:19:12 08/15/19 23 08/15/2022 CBC/C OMPLE TE BLD COUNT W/DIF F hematocrit 45.8 % 35.7-4 5.7 high Not Available [facility] (Lab) [address] [place], [address], 08/15/2022 13:19:12 08/15/19 23 08/15/2022 CBC/C OMPLE TE BLD COUNT W/DIF F mean red cell volume 91.1 fL 82.0-9 9.0 Not Available [facility] (Lab) [address] [place], [address], 08/15/2022 13:19:12 08/15/19 23 08/15/2022 CBC/C OMPLE TE BLD COUNT W/DIF F mean red cell hemoglobin 30.2 pg 27.0-3 3.0 Not Available [facility] (Lab) [address] [place], [address], 08/15/2022 13:19:12 08/15/19 23 08/15/2022 CBC/C OMPLE TE BLD COUNT W/DIF F red cell distribution width 13.1 % 11.8-1 5.5 Not Available [facility] (Lab) [address] [place], [address], 08/15/2022 13:19:12 08/15/19 23 08/15/2022 CBC/C OMPLE TE BLD COUNT W/DIF F platelets 232 x10'3 /uL 150-40 0 Not Available [facility] (Lab) [address] [place], [address], 08/15/2022 13:19:12 08/15/1908/15/2022 CBC/C OMPLE TE BLD COUNT W/DIF F mean platelet volume 11.0 fL 9.0-12 .4 Not Available [facility] (Lab) [address] [place], [address], 08/15/2022 13:19:12 08/15/19 23 08/15/2022 CBC/C OMPLE TE BLD COUNT W/DIF F neutrophils 62.2 % 39.0-7 2.0 Not Available [facility] (Lab) [address] [place], [address], 08/15/2022 13:19:12 08/15/19 23 08/15/2022 CBC/C OMPLE TE BLD COUNT W/DIF F lymphocytes 27.1 % 16.0-4 7.0 Not Available [facility] (Lab) [address] [place], [address], 08/15/2022 13:19:12 08/15/19 23 08/15/2022 CBC/C OMPLE TE BLD COUNT W/DIF F monocytes 5.7 % 5.0-12 .0 Not Available [facility] (Lab) [address] [place], [address], 08/15/2022 13:19:12 08/15/19 23 08/15/2022 CBC/C OMPLE TE BLD COUNT W/DIF F eosinophils 4.2 % 1.0-7. 0 Not Available [facility] (Lab) [address] [place], [address], 08/15/2022 13:19:12 08/15/19 23 08/15/2022 CBC/C OMPLE TE BLD COUNT W/DIF F basophils 0.4 % 0.0-2. 0 Not Available [facility] (Lab) [address] [place], [address], 08/15/2022 13:19:12 08/15/19 23 08/15/2022 CBC/C OMPLE TE BLD COUNT W/DIF F immature granulocytes 0.4 % 0.00-0 .50 Not Available [facility] (Lab) [address] [place], [address], 08/15/2022 13:19:12 08/15/19 23 08/15/2022 CBC/C OMPLE TE BLD COUNT W/DIF F neutrophils, absolute count 5.16 x10'3 /uL 1.5-8. 0 Not Available [facility] (Lab) [address] [place], [address], 08/15/2022 13:19:12 08/15/19 23 08/15/2022 CBC/C OMPLE TE BLD COUNT W/DIF F lymphocytes, absolute count 2.24 x10'3 /uL 1.07-3 .43 Not Available [facility] (Lab) [address] [place], [address], 08/15/2022 13:19:12 08/15/19 23 08/15/2022 CBC/C OMPLE TE BLD COUNT W/DIF F monocytes, absolute count 0.47 x10'3 /uL 0.29-0 .99 Not Available [facility] (Lab) [address] [place], [address], 08/15/2022 13:19:12 08/15/19 23 08/15/2022 CBC/C OMPLE TE BLD COUNT W/DIF F eosinophils, absolute count 0.35 x10'3 /uL 0.02-0 .53 Not Available [facility] (Lab) [address] [place], [address], 08/15/2022 13:19:12 08/15/1908/15/2022 CBC/C OMPLE TE BLD COUNT W/DIF F basophils, absolute count 0.03 x10'3 /uL 0.01-0 .08 Not Available [facility] (Lab) [address] [place], [address], 08/15/2022 13:19:12 08/15/19 23 08/15/2022 CBC/C OMPLE TE BLD COUNT W/DIF F immature granulocytes ,absolute 0.03 x10'3 /uL 0.00-0 .05 Not Available [facility] (Lab) [address] [place], [address], 08/15/2022 13:19:12 08/15/19 23 08/15/2022 CBC/C OMPLE TE BLD COUNT W/DIF F nucleated red blood cells 0.0 % -0 Not Available [facility] (Lab) [address] [place], [address], 08/15/2022 13:19:12 08/15/19 23 08/15/2022 CBC/C OMPLE TE BLD COUNT W/DIF F NRBC# 0.00 x10'3 /uL Not Available [facility] (Lab) [address] [place], [address], 08/15/2022 13:19:12 08/15/19 23 08/15/2022 LIPID PANEL LDL cholesterol, calculated 103 mg/dL 0-130 NIH ALEXANDR NSUS REPOR T RECOM MENDA TIONS FOR LDL: ADULT CHILD LOW RISK <130 <110 (OPTI MAL LDL) <100 ----- BORDE RLINE : 130-1 59 ----- HIGH RISK: >160 >130 A TRIGL YCERI DE RESUL T >400 INVAL IDATE S THE CALCU LATIO N FOR LDL FRACT IONAT ION - THE LDL RESUL T WILL NOT BE REPOR GEORGE. Not Available [facility] (Lab) [address] [place], [address], 08/15/2022 13:54:31 08/15/19 23 08/15/2022 LIPID PANEL cholesterol 203 mg/dL 140-19 9 high NIH ALEXANDR NSUS RECOM MENDA TION FOR TODD STERO L: ADULT CHILD LOW RISK: <200 <170 BORDE RLINE : <200- 239 ----- HIGH RISK: >240 >200 Not Available [facility] (Lab) [address] [place], [address], 08/15/2022 13:54:31 08/15/1908/15/2022 LIPID PANEL triglyceride s 222 mg/dL 0-150 high NIH ALEXANDR NSUS REPOR T RECOM MENDA TION FOR TRIGL YCERI VALDEZ: ADULT CHILD LOW RISK: <150 ----- BODER LINE: 150-1 99 ----- HIGH RISK: >200 ----- Not Available [facility] (Lab) [address] [facility] [place], [address], 08/15/2022 13:54:31 08/15/19 23 08/15/2022 LIPID PANEL HDL cholesterol 56 mg/dL 40- Not Available [facility] (Lab) [address] [place], [address], 08/15/2022 13:54:31 08/15/19 23 08/15/2022 COMPR EHENS SELVIN METAB OLIC PANEL carbon dioxide 27 mmol/ L 22-30 Not Available [facility] (Lab) [address] [place], [address], 08/15/2022 13:54:26 08/15/19 23 08/15/2022 COMPR EHENS SELVIN METAB OLIC PANEL sodium 142 mmol/ L 137-14 5 Not Available [facility] (Lab) [address] [place], [address], 08/15/2022 13:54:26 08/15/19 23 08/15/2022 COMPR EHENS SELVIN METAB OLIC PANEL potassium 4.8 mmol/ L 3.5-5. 1 Not Available [facility] (Lab) [address] [place], [address], 08/15/2022 13:54:26 08/15/19 23 08/15/2022 COMPR EHENS SELVIN METAB OLIC PANEL chloride 108 mmol/ L 98-107 high Not Available [facility] (Lab) [address] [place], [address], 08/15/2022 13:54:26 08/15/19 23 08/15/2022 COMPR EHENS SELVIN METAB OLIC PANEL anion gap 11.8 mmol/ L 14-22 low Not Available [facility] (Lab) [address] [place], [address], 08/15/2022 13:54:26 08/15/19 23 08/15/2022 COMPR EHENS SELVIN METAB OLIC PANEL glucose 96 mg/dL 70-99 Not Available [facility] (Lab) [address] [place], [address], 08/15/2022 13:54:26 08/15/19 23 08/15/2022 COMPR EHENS SELVIN METAB OLIC PANEL BUN 14 mg/dL 8-19 Not Available [facility] (Lab) [address] [place], [address], 08/15/2022 13:54:26 08/15/19 23 08/15/2022 COMPR EHENS SELVIN METAB OLIC PANEL creatinine 0.84 mg/dL 0.66-1 .25 Not Available [facility] (Lab) [address] [place], [address], 08/15/2022 13:54:26 08/15/19 23 08/15/2022 COMPR EHENS SELVIN METAB OLIC PANEL GFR >60 Refer ence Range : [place] ge GFR Healt hy Adult : >60 mL/mi n/1.7 3 m2 Chron ic Kidne y Disea se: 15-60 mL/mi n/1.7 3 m2 Kidne y Failu re: <15/m L/min /1.73 m2 www.n iddk. nih.g ov The MDRD study equat ion has not been valid ated in child malina <18 years of age; pregn ant women ; the elder ly >85 years of age; or in some racia l or ethni c subgr oups, such as Hisfl nics. Outsi de the valid ated alyssia eters , estim ated GFR is less accur ate, requi ring clini may judgm ent on a case- by-ca se basis . Clini may inter preta tion for other races and ages must be made by the clini ari. The MDRD study equat ion has not been valid ated for the evalu ation of serum creat inine relat ed to nutri anant l statu s or medic ation usage . For perso ns <18 years of age, a pedia tric GFR calcu lator is avail able on the [facility] websi te: https :[email or web address] rg/pr ofess ional s/kdo qi/gf r_cal culat or Not Available [facility] (Lab) [address] [place], [address], 08/15/2022 13:54:26 08/15/19 23 08/15/2022 COMPR EHENS SELVIN METAB OLIC PANEL alkaline phosphatase 80 U/L 38-126 Not Available [facility] (Lab) [address] [place], [address], 08/15/2022 13:54:26 08/15/19 23 08/15/2022 COMPR EHENS SELVIN METAB OLIC PANEL alanine aminotransfe rase 26 U/L 0-35 Not Available [facility] (Lab) [address] [place], [address], 08/15/2022 13:54:26 08/15/19 23 08/15/2022 COMPR EHENS SELVIN METAB OLIC PANEL aspartate aminotransfe rase 22 U/L 15-37 Not Available [facility] (Lab) [address] [place], [address], 08/15/2022 13:54:26 08/15/19 23 08/15/2022 COMPR EHENS SELVIN METAB OLIC PANEL bilirubin, total 0.50 mg/dL 0.20-1 .30 Not Available [facility] (Lab) [address] [place], [address], 08/15/2022 13:54:26 08/15/19 23 08/15/2022 COMPR EHENS SELVIN METAB OLIC PANEL calcium 9.7 mg/dL 8.4-10 .2 Not Available [facility] (Lab) [address] [place], [address], 08/15/2022 13:54:26 08/15/19 23 08/15/2022 COMPR EHENS SELVIN METAB OLIC PANEL total protein 6.7 g/dL 6.3-8. 2 Not Available [facility] (Lab) [address] [place], [address], 08/15/2022 13:54:26 08/15/19 23 08/15/2022 COMPR EHENS SELVIN METAB OLIC PANEL albumin 4.2 g/dL 3.0-4. 4 Not Available [facility] (Lab) [address] [place], [address], 08/15/2022 13:54:26 08/15/19 23 08/15/2022 COMPR EHENS SELVIN METAB OLIC PANEL globulin 2.5 g/dL 2.6-4. 2 low Not Available [facility] (Lab) [address] [place], [address], 08/15/2022 13:54:26 08/15/19 23 08/15/2022 COMPR EHENS SELVIN METAB OLIC PANEL A/G ratio 1.7 ratio 1.0-2. 0 Not Available [facility] (Lab) [address] [place], [address], 08/15/2022 13:54:26 08/15/19 23 08/15/2022 URINA LYSIS COMPL ETE/I RIS W/RFX nitrite negati ve negati ve- Not Available [facility] (Lab) [address] [place], [address], 08/15/2022 13:33:50 08/15/19 23 08/15/2022 URINA LYSIS COMPL ETE/I RIS W/RFX color light- yellow Not Available [facility] (Lab) [address] [place], [address], 08/15/2022 13:33:50 08/15/19 23 08/15/2022 URINA LYSIS COMPL ETE/I RIS W/RFX appear clear Not Available [facility] (Lab) [address] [place], [address], 08/15/2022 13:33:50 08/15/19 23 08/15/2022 URINA LYSIS COMPL ETE/I RIS W/RFX specific gravity 1.007 1.001- 1.030 Not Available [facility] [facility] [address] [place], [address], 08/15/2022 13:33:50 08/15/19 23 08/15/2022 URINA LYSIS COMPL ETE/I RIS W/RFX pH 7.0 pH_un its 5.0-9. 0 Not Available [facility] (Lab) [address] [place], [address], 08/15/2022 13:33:50 08/15/19 23 08/15/2022 URINA LYSIS COMPL ETE/I RIS W/RFX leukocytes negati ve jose juan/u L negati ve- Not Available [facility] (Lab) [address] [place], [address], 08/15/2022 13:33:50 08/15/19 23 08/15/2022 URINA LYSIS COMPL ETE/I RIS W/RFX protein negati ve mg/dL negati ve- Not Available [facility] (Lab) [address] [place], [address], 08/15/2022 13:33:50 08/15/19 23 08/15/2022 URINA LYSIS COMPL ETE/I RIS W/RFX glucose normal mg/dL normal - Not Available [facility] (Lab) [address] [place], [address], 08/15/2022 13:33:50 08/15/19 23 08/15/2022 URINA LYSIS COMPL ETE/I RIS W/RFX ketones negati ve mg/dL negati ve- Not Available [facility] (Lab) [address] [place], [address], 08/15/2022 13:33:50 08/15/19 23 08/15/2022 URINA LYSIS COMPL ETE/I RIS W/RFX urobilinogen normal mg/dL normal - Not Available [facility] (Lab) [address] [place], [address], 08/15/2022 13:33:50 08/15/19 23 08/15/2022 URINA LYSIS COMPL ETE/I RIS W/RFX bilirubin negati ve mg/dL negati ve- Not Available [facility] (Lab) [address] [place], [address], 08/15/2022 13:33:50 08/15/19 23 08/15/2022 URINA LYSIS COMPL ETE/I RIS W/RFX blood negati ve mg/dL negati ve- Not Available [facility] (Lab) [address] [place], [address], 08/15/2022 13:33:50 08/15/19 23 08/15/2022 URINA LYSIS COMPL ETE/I RIS W/RFX white blood cells 0-8 /i??h pfi?? 0-8 Not Available [facility] (Lab) [address] [place], [address], 08/15/2022 13:33:50 08/15/19 23 08/15/2022 URINA LYSIS COMPL ETE/I RIS W/RFX red blood cells 0-4 /i??h pfi?? 0-4 Not Available [facility] (Lab) [address] [place], [address], 08/15/2022 13:33:50 08/15/19 23 08/15/2022 URINA LYSIS COMPL ETE/I RIS W/RFX bacteria occasi onal abnormal Not Available [facility] (Lab) [address] [place], [address], 08/15/2022 13:33:50 08/15/19 23 08/15/2022 URINA LYSIS COMPL ETE/I RIS W/RFX squamous epithelial packed field /i??l pfi?? abnormal Not Available [facility] (Lab) [address] [place], [address], 08/15/2022 13:33:50 06/19/20 23 06/19/2023 COMPR EHENS SELVIN METAB OLIC PANEL sodium 141 mmol/ L 137-14 5 Not Available [facility] (Lab) [address] [place], [address], 06/19/2023 15:08:57 06/19/2006/19/2023 COMPR EHENS SELVIN METAB OLIC PANEL potassium 4.2 mmol/ L 3.5-5. 1 Not Available [facility] (Lab) [address] [place], [address], 06/19/2023 15:08:57 06/19/20 23 06/19/2023 COMPR EHENS SELVIN METAB OLIC PANEL chloride 107 mmol/ L 98-107 Not Available [facility] (Lab) [address] [place], [address], 06/19/2023 15:08:57 06/19/20 23 06/19/2023 COMPR EHENS SELVIN METAB OLIC PANEL carbon dioxide 27 mmol/ L 22-30 Not Available [facility] (Lab) [address] [place], [address], 06/19/2023 15:08:57 06/19/20 23 06/19/2023 COMPR EHENS SELVIN METAB OLIC PANEL anion gap 11.2 mmol/ L 14-22 low Not Available [facility] (Lab) [address] [place], [address], 06/19/2023 15:08:57 06/19/20 23 06/19/2023 COMPR EHENS SELVIN METAB OLIC PANEL glucose 107 mg/dL 70-99 high Not Available [facility] (Lab) [address] [place], [address], 06/19/2023 15:08:57 06/19/20 23 06/19/2023 COMPR EHENS SELVIN METAB OLIC PANEL BUN 11 mg/dL 8-19 Not Available [facility] (Lab) [address] [place], [address], 06/19/2023 15:08:57 06/19/20 23 06/19/2023 COMPR EHENS SELVIN METAB OLIC PANEL creatinine 0.78 mg/dL 0.66-1 .25 Not Available [facility] (Lab) [address] [place], [address], 06/19/2023 15:08:57 06/19/20 23 06/19/2023 COMPR EHENS SELVIN METAB OLIC PANEL GFR >60 Refer ence Range : [place] ge GFR Healt hy Adult : >60 mL/mi n/1.7 3 m2 Chron ic Kidne y Disea se: 15-60 mL/mi n/1.7 3 m2 Kidne y Failu re: <15/m L/min /1.73 m2 www.n iddk. nih.g ov The MDRD study equat ion has not been valid ated in child malina <18 years of age; pregn ant women ; the elder ly >85 years of age; or in some racia l or ethni c subgr oups, such as [facility] nics. Outsi de the valid ated alyssia eters , estim ated GFR is less accur ate, requi ring clini may judgm ent on a case- by-ca se basis . Clini may inter preta tion for other races and ages must be made by the clini ari. The MDRD study equat ion has not been valid ated for the evalu ation of serum creat inine relat ed to nutri anant l statu s or medic ation usage . For perso ns <18 years of age, a pedia tric GFR calcu lator is avail able on the [facility] websi te: https :[email or web address] [email or web address] barragan/pr ofess ional s/kdo qi/gf r_cal culat or Not Available [facility] (Lab) [address] [place], [address], 06/19/2023 15:08:57 06/19/20 23 06/19/2023 COMPR EHENS SELVIN METAB OLIC PANEL alkaline phosphatase 79 U/L 38-126 Not Available [facility] (Lab) [address] [place], [address], 06/19/2023 15:08:57 06/19/20 23 06/19/2023 COMPR EHENS SELVIN METAB OLIC PANEL alanine aminotransfe rase 27 U/L 0-35 Not Available [facility] (Lab) [address] [place], [address], 06/19/2023 15:08:57 06/19/20 23 06/19/2023 COMPR EHENS SELVIN METAB OLIC PANEL aspartate aminotransfe rase 36 U/L 15-37 Not Available [facility] (Lab) [address] [place], [address], 06/19/2023 15:08:57 06/19/20 23 06/19/2023 COMPR EHENS SELVIN METAB OLIC PANEL bilirubin, total 0.50 mg/dL 0.20-1 .30 Not Available [facility] (Lab) [address] [place], [address], 06/19/2023 15:08:57 06/19/20 23 06/19/2023 COMPR EHENS SELVIN METAB OLIC PANEL calcium 9.8 mg/dL 8.4-10 .2 Not Available [facility] (Lab) [address] [place], [address], 06/19/2023 15:08:57 06/19/20 23 06/19/2023 COMPR EHENS SELVIN METAB OLIC PANEL total protein 7.3 g/dL 6.3-8. 2 Not Available [facility] (Lab) [address] [place], [address], 06/19/2023 15:08:57 06/19/20 23 06/19/2023 COMPR EHENS SELVIN METAB OLIC PANEL albumin 4.2 g/dL 3.0-4. 4 Not Available [facility] (Lab) [address] [place], [address], 06/19/2023 15:08:57 06/19/20 23 06/19/2023 COMPR EHENS SELVIN METAB OLIC PANEL globulin 3.1 g/dL 2.6-4. 2 Not Available [facility] (Lab) [address] [place], [address], 06/19/2023 15:08:57 06/19/20 23 06/19/2023 COMPR EHENS SELVIN METAB OLIC PANEL A/G ratio 1.4 ratio 1.0-2. 0 Not Available [facility] (Lab) [address] [place], [address], 06/19/2023 15:08:57 06/19/20 23 06/19/2023 LIPID PANEL cholesterol 215 mg/dL 140-19 9 high NIH ALEXANDR NSUS RECOM MENDA TION FOR TODD STERO L: ADULT CHILD LOW RISK: <200 <170 BORDE RLINE : <200- 239 ----- HIGH RISK: >240 >200 Not Available [facility] (Lab) [address] [place], [address], 06/19/2023 15:09:08 06/19/2006/19/2023 LIPID PANEL triglyceride s 225 mg/dL 0-150 high NIH ALEXANDR NSUS REPOR T RECOM MENDA TION FOR TRIGL YCERI VALDEZ: ADULT CHILD LOW RISK: <150 ----- BODER LINE: 150-1 99 ----- HIGH RISK: >200 ----- Not Available [facility] (Lab) [address] [place], [address], 06/19/2023 15:09:08 06/19/20 23 06/19/2023 LIPID PANEL HDL cholesterol 47 mg/dL 40- Not Available [facility] (Lab) [address] [place], [address], 06/19/2023 15:09:08 06/19/20 23 06/19/2023 LIPID PANEL LDL cholesterol, calculated 123 mg/dL 0-130 NIH ALEXANDR NSUS REPOR T RECOM MENDA TIONS FOR LDL: ADULT CHILD LOW RISK <130 <110 (OPTI MAL LDL) <100 ----- BORDE RLINE : 130-1 59 ----- HIGH RISK: >160 >130 A TRIGL YCERI DE RESUL T >400 INVAL IDATE S THE CALCU LATIO N FOR LDL FRACT IONAT ION - THE LDL RESUL T WILL NOT BE REPOR GEORGE. Not Available [facility] (Lab) [address] [place], [address], 06/19/2023 15:09:08 10/06/19 22 10/05/2021 XR, chest , 2 view [facility] [address] [place] [address] Patien t Name: ISIS MARTIN Access ion #: [id number] Sex: F : 1959 1 Locati on: [facility] Attend ing Physic trina: JOSE CORREA Orderi ng Physic trina: JOSE CORREA Exam Date: 10/06/19 8:44 AM Exam Name: XR CHEST 2V Admitt ing Diagno sis(es ): RADIOL OGY REPORT - FINAL EXAM: XR CHEST 2V HISTOR Y: DYSPNE A COMPAR JOSEFINA: None. TECHNI QUE: Two views of the chest were perfor med. FINDIN GS: No pneumo thorax , consol idativ e infilt rates, pleura l effusi ons, or pulmon tomasz edema. The heart is not enlarg ed. IMPRES KAVIN: Unrema rkable 2 view chest. Page 1 of 2 [facility] michael Name: ISIS MARTIN Access ion #: [id number] Sex: F : 1959 1 Exam Date: 10/06/19 8:44 AM Exam Name: XR CHEST 2V Admitt ing Diagno sis(es ): Create d and electr onical ly signed by: Samm roy MD Signed Date: 10/06/19 10:55 AM (CT) Dictat ed by: Samm roy MD (CT) (CT) Page 2 of 2 [id number] [facility] (Imaging) [address] [place], [address], 10/03/2022 06:08:38 10/26/19 22 10/05/2021 , echoc ardio gram No observ ation record ed. [id number] [facility] ([facility]) [address] [place], [address], 10/03/2022 06:08:38 Result Notes None recorded. Problems Name Problem SNOMED Code Status Onset Date Resolution Date Notes Provider Name and Address Organization Details Recorded Time Benign essential hypertension 9026869 Active Not Available [facility] 3 05:37:14 Pain in throat 965833563 Active 2021 Not Available [facility] 3 05:37:14 Insomnia 934075827 Active Not Available [facility] 3 05:37:14 Abdominal pain 14254201 Active Not Available [facility] 3 05:37:14 Venous insufficiency of leg 839603862 Active 2021 Not Available [facility] 3 05:37:14 Gastroesophag eal reflux disease 982484878 Active Not Available [facility] 3 05:37:14 Dyspnea 531955152 Active 2021 Not Available [facility] 3 05:37:14 Pure hypercholeste rolemia 387599251 Active Not Available [facility] 3 05:37:14 Malaise and fatigue 304853489 Active Not Available [facility] 3 05:37:14 Pain in calf 427146901 Active Not Available [facility] 3 05:37:14 Vitamin D deficiency 27995840 Active Not Available [facility] 3 05:37:14 Disorder of vitamin D 365229796 Active Not Available [facility] 3 05:37:14 Eosinophil count above reference range 363482272 Active Not Available [facility] 3 05:37:14 Anxiety 63384393 Active Not Available [facility] 3 05:37:14 Dysuria 35335489 Active 2022 Not Available [facility] 3 05:37:14 Upper respiratory infection 14041607 Active 2021 Not Available [facility] 3 05:37:14 Rhinitis 20646642 Active Not Available [facility] 3 05:37:14 Skin lesion 94978158 Active 2022 Not Available [facility] 3 05:37:14 Cough 35582862 Active 2023 LUCHO [place], [place] - [facility] 4 16:02:44 Problem Notes None recorded. Procedures Surgical History None recorded. Imaging Results Imaging Date Name Status LastModified by Organization Details LastModified Time 10/05/2021 XR, chest, 2 view completed MIGRATION. [id number] [facility] (Imaging) [address] [place], [address], 10/03/2022 06:08:38 10/05/2021 US, echocardiogram completed [id number] [facility] ([facility]) [address] [place], [address], 10/03/2022 06:08:38 Procedure Notes None recorded. Medical Equipment None Reported. Allergies No known drug allergies Medications Name Sig Start Date Stop Date Status Note LastModified by Organization Details LastModified Time atorvastati n 40 mg tablet Take 1 tablet every day by oral route for 90 days. active Not Available Not Available No t Available atorvastati n 20 mg tablet Take 1 tablet every day by oral route. active Not Available Not Available No t Available atorvastati n 10 mg tablet TAKE 1 TABLET ONCE DAILY 07/13 completed Not Available Not Available Not Available azithromyci n 250 mg tablet TAKE 2 TABLETS BY MOUTH FOR 1 DAY THEN TAKE 1 TABLET BY MOUTH DAILY FOR 4 DAYS active Not Available Not Available No t Available benzonatate 200 mg capsule TAKE 1 CAPSULE BY MOUTH EVERY 8 HOURS NEEDED active Not Available Not Available No t Available phenazopyri dine 200 mg tablet 07/18 completed Not Available Not Available Not Available prednisone 20 mg tablet TK 2 TS PO QAM FOR 3 DAYS WF OR MILK 03/11 completed Not Available Not Available Not Available Nexium 40 mg capsule,del ayed release TAKE 1 CAPSULE DAILY active Not Available Not Available No t Available ciprofloxac in 500 mg tablet Take 1 tablet every 12 hours by oral route. 07/18 completed Not Available Not Available Not Available sulfamethox azole 800 mg-trimetho prim 160 mg tablet 07/18 completed Not Available Not Available Not Available omeprazole 40 mg capsule,del ayed release TAKE 1 CAPSULE BY MOUTH EVERY DAY active Not Available Not Available No t Available benzonatate 100 mg capsule TK 1 C PO TID FOR 7 DAYS 03/11 completed Not Available Not Available Not Available cephalexin 500 mg capsule TAKE ONE CAPSULE BY MOUTH TWICE DAILY 02/13 completed Not Available Not Available Not Available omeprazole 20 mg capsule,del ayed release Take 1 capsule twice a day by oral route for 90 days. 02/02 completed Not Available Not Available Not Available codeine 10 mg-guaifene sin 100 mg/5 mL oral liquid 01/03 completed Not Available Not Available Not Available lisinopril 5 mg tablet TAKE 1 TABLET DAILY active Not Available Not Available No t Available mupirocin 2 % topical ointment 07/18 completed Not Available Not Available Not Available ergocalcife rol (vitamin D2) 1,250 mcg (50,000 unit) capsule Take 1 capsule every week by oral route. 04/11 completed Not Available Not Available Not Available azelastine 137 mcg (0.1 %) nasal spray [place] 2 sprays every day by intranasa l route. active Not Available Not Available No t Available methylpredn isolone 4 mg tablets in a dose pack TAKE DIRECTED ON PACKET 09/01 completed Not Available Not Available Not Available albuterol sulfate HFA 90 mcg/actuati on aerosol inhaler INHALE 1 TO 2 PUFFS BY MOUTH EVERY 6 HOURS NEEDED active Not Available Not Available No t Available amoxicillin 875 mg-potassiu m clavulanate 125 mg tablet TAKE 1 TABLET BY MOUTH TWICE DAILY FOR 10 DAYS active Not Available Not Available No t Available azithromyci n 500 mg tablet 01/03 completed Not Available Not Available Not Available nitrofurant oin monohydrate /macrocryst als 100 mg capsule TAKE 1 CAPSULE TWICE DAILY UNTIL ALL TAKEN TAKE WITH FOOD 03/11 completed Not Available Not Available Not Available melatonin PRN 02/13 completed Not Available Not Available Not Available [place] 08/25 completed Not Available Not Available Not Available Bentyl 08/25 completed Not Available Not Available Not Available omeprazole 20 mg tablet,nava yed release Take 1 tablet every day by oral route. 01/24 completed Not Available Not Available Not Available Vitals Date Recorded Body mass index (BMI) Body height Heart rate Body temperature Body weight Systolic blood pressure Diastolic blood pressure Provider Name and Address Organization Details Last Updated DateTime 2 35.7 kg/m2 163.83 cm 78 /min 97 [degF] 27206.9 9 g 108 mm[Hg] 66 mm[Hg] Not Available [facility] 3 05:59:35 Date Recorded Body mass index (BMI) Body height Heart rate Body temperature Body weight Systolic blood pressure Diastolic blood pressure Provider Name and Address Organization Details Last Updated DateTime 2 35 kg/m2 163.83 cm 74 /min 96.8 [degF] 56932.6 2 g 124 mm[Hg] 70 mm[Hg] Not Available [facility] 3 05:59:35 Date Recorded Body mass index (BMI) Body height Heart rate Body temperature Body weight Systolic blood pressure Diastolic blood pressure Provider Name and Address Organization Details Last Updated DateTime 3 33.6 kg/m2 163.83 cm 70 /min 97.9 [degF] 52669.8 8 g 130 mm[Hg] 80 mm[Hg] Not Available [facility] 3 05:59:36 Date Recorded Body height Body mass index (BMI) Body weight Body temperature Heart rate Systolic blood pressure Diastolic blood pressure Provider Name and Address Organization Details Last Updated DateTime 3 163.83 cm 33.8 kg/m2 15873.4 7 g 97.6 [degF] 81 /min 124 mm[Hg] 70 mm[Hg] Leslie bergman RN [place] [facility] [place] 3 10:06:24 Date Recorded Body height Body mass index (BMI) Body weight Body temperature Heart rate Systolic blood pressure Diastolic blood pressure Provider Name and Address Organization Details Last Updated DateTime 3 163.83 cm 33.5 kg/m2 37904.2 9 g 97.6 [degF] 74 /min 116 mm[Hg] 80 mm[Hg] LUCHO [place] [facility] 3 10:10:38 Social History Question Answer Notes LastModified by Organization Details LastModified Time Tobacco Smoking Status Former Smoker quit 1992 Not Available [facility] 10/03/2022 05:54:51 Do You Have An Advance Directive? No MIGRATION.030 [id number] Information not available 10/03/2022 What Is Your Level Of Alcohol Consumption? None MIGRATION.030 [id number] Information not available 10/03/2022 What Is Your Level Of Caffeine Consumption? Moderate MIGRATION.030 [id number] Information not available 10/03/2022 In The 14 Days Before Symptom Onset, Have You Had Close Contact With A Laboratory-confi rmed COVID-19 While That Case Was Ill? No MIGRATION.030 [id number] Information not available 10/03/2022 In The 14 Days Before Symptom Onset, Have You Had Close Contact With A Person Who Is Under Investigation For COVID-19 While That Person Was Ill? No MIGRATION.030 [id number] Information not available 10/03/2022 What Type Of Diet Are You Following? REGULAR MIGRATION.030 [id number] Information not available 10/03/2022 What Is The Highest Grade Or Level Of School You Have Completed Or The Highest Degree You Have Received? 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 No MIGRATION.0301 [id number] Information not available 10/03/2022 What Is The Fluoride Status Of Your Home? Unknown MIGRATION.030 [id number] Information not available 10/03/2022 When Did You Quit Smoking? 14+yearssincelastci ana MIGRATION.030 [id number] Information not available 10/03/2022 Do You Use Insect Repellent Routinely? No MIGRATION.0301 [id number] Information not available 10/03/2022 Where Do You Live? [place]House MIGRATION.030 079042 Information not available 10/03/2022 Do You Have A Medical Power Of Railroad Signal Operator? No MIGRATION.0301 [id number] Information not available 10/03/2022 What Was The Date Of Your Most Recent Tobacco Screening? 06/19/2023 [email or web address] Information not available 06/19/2023 Do You Have Any Pets? Yes MIGRATION.0301 [id number] Information not available 10/03/2022 What Is Your Relationship Status? MIGRATION.0301 [id number] Information not available 10/03/2022 Do You Use Your Seat Belt Or Car Seat Routinely? Yes MIGRATION.0301 [id number] Information not available 10/03/2022 Do You Have Smoke And Carbon Monoxide Detectors In Your Home? Yes MIGRATION.0301 [id number] Information not available 10/03/2022 Are You Passively Exposed To Smoke? No MIGRATION.0301 [id number] Information not available 10/03/2022 Are There Any Smokers In Your House? No MIGRATION.0301 024670 Information not available 10/03/2022 What Types Of Sporting Activities Do You Participate In? None MIGRATION.0301 [id number] Information not available 10/03/2022 Do You Feel Stressed (tense, Restless, Nervous, Or Anxious, Or Unable To Sleep At Night)? [id number] MIGRATION.0301 [id number] Information not available 10/03/2022 Do You Use Any Illicit Or Recreational Drugs? No MIGRATION.0301 [id number] Information not available 10/03/2022 Do You Use Sunscreen Routinely? No MIGRATION.0301 [id number] Information not available 10/03/2022 Has Tobacco Cessation Counseling Been Provided? No MIGRATION.0301 [id number] Information not available 10/03/2022 Have You Recently Traveled Abroad? No MIGRATION.0301 [id number] Information not available 10/03/2022 Do You Have Any Dietary Restrictions? No MIGRATION.030 937521 Information not available 10/03/2022 Do You Or Have You Ever Used Any Other Forms Of Tobacco Or Nicotine? No MIGRATION.0301 [id number] Information not available 10/03/2022 Sex: Female Functional Status Question Answer Note LastModified by Organizat ion Details LastModified Time What is your exercise level? Moderate [id number] Information not available 10/03/2022 Mental Status None recorded. Family History Relationship Description Onset Age of this Age Resolved Age Notes LastModified by Organization Details LastModified Time Mother Heart disease 80 MIGRATION.314 [id number] Not available 10/03/2022 05:55:57 Father Heart disease 65 MIGRATION.362 [id number] Not available 10/03/2022 05:55:57 Father Diabetes mellitus MIGRATION.198 [id number] Not available 10/03/2022 05:55:57 Medical History Condition Response NERVE DISEASE N BLINDNESS N RHEUMATIC FEVER N KIDNEY STONES N BLADDER PROBLEMS N MRSA N OTHER # 1 N POLIO N LUNG DISEASE/DISORDER N HISTORY OF DRUG ABUSE N RADIATION / CHEMOTHERAPY N COPD N Other # 2 N BLOOD DISEASES N EAR OR HEARING PROBLEMS N MUMPS N SHINGLES N BOWEL PROBLEMS N DEPRESSION (INCLUDING POST ) N STROKE/TIA N ULCERS N BENIGN PROSTATIC HYPERPLASIA N MEASLES N HYPOTENSION N MYOCARDIAL INFARCTION N OBESITY N GERD/NAUSEA Y ANEURYSM N URINARY/BLADDER/KIDNEY PROBLEMS N CORONARY ARTERY DISEASE (CAD) N ADDICTION CONCERNS N ENDOMETRIOSIS N Impotence N USE OF BLOOD THINNERS N SKIN PROBLEMS N GASTROINTESTINAL DISORDER N PERIPHERAL VASCULAR DISEASE N MUSCLE,JOINT OR BONE PROBLEMS N GASTROINTESTINAL BLEEDING N BLOOD CLOTS N ASTHMA N CATARACTS N ERECTILE DYSFUNCTION N VARICOSITIES N GI PROBLEMS N Low Testosterone N INFERTILITY N AIDS/HIV N CHEMOTHERAPY / RADIATION N LIVER DISEASE N MALE HYPOGONADISM N HYPERTENSION Y Deficiency Y TOURETTE'S N ANXIETY DISORDER Y BLOOD TRANSFUSION N ANEMIA/BLOOD DISORDER N CHRONIC EAR INFECTIONS N BRONCHITIS N TUBERCULOSIS N GLAUCOMA N FOOT PROBLEM N DIVERTICULITIS N CHICKENPOX N SLEEP APNEA N INFECTIOUS DISEASE N HEART ARRHYTHMIA N PROSTATE N INSOMNIA Y HIGH CHOLESTEROL / HYPERLIPIDEMIA Y HYPERTHYROIDISM N EYE PROBLEMS N EDEMA N CHRONIC PAIN SYNDROME N HYPOTHYROIDISM N CAROTID BLOCKAGE N CONSTIPATION N BACK / NECK PROBLEMS N ATHEROSCLEROSIS N BREAST PROBLEMS N DIALYSIS N ECZEMA N OSTEOPOROSIS N ARTHRITIS N APPENDICITIS N DIABETES, TYPE N BAD TEETH N ENT N HEARTBURN / REFLUX N AUTISM SPECTRUM DISORDER (ASD) N HEPATITIS / LIVER DISEASE N GOUT N SLEEP DISORDER N ALZHEIMER'S DISEASE N Brain Problems N HERPES N DEMENTIA N HEADACHES/MIGRAINES N SEIZURES/EPILEPSY N VASCULAR DISEASE N PACEMAKER N Blood Disorder N DIZZINESS N HEART DISEASE/HEART PROBLEMS N KIDNEY DISEASE N MULTIPLE SCLEROSIS N CARDIAC ARRHYTHMIA N CANCER: SPECIFY N ATRIAL FIBRILLATION N Gall Stones N PULMONARY EMBOLISM N AUTOIMMUNE DISEASE N Gynecological HistoryNo gynecological history recorded. Obstetrics History GPAL:G 0 P 0 0 0 0 Past Encounters Encounter ID Performer Location Encounter Start Date Encounter Closed Date Diagnosis/Indication Diagnosis SNOMED-CT Code Diagnosis ICD10 Code Diagnosis Note [id number] [facility] [address] [address] 04/11/2021 00:00:00 05/13/2021 12:16:53 [id number] [facility] [address] [address] 10/03/2021 00:00:00 10/21/2021 22:52:48 [id number] [facility] [address] [address] 02/06/2022 00:00:00 02/06/2022 21:05:24 [id number] [facility] [address] [address] 08/15/2022 00:00:00 08/18/2022 21:36:12 [id number] Tacos Correa MD [facility] [address] [address] 02/13/2023 09:53:24 02/13/2023 10:28:30 Anxiety [id number] F41.9 Benign ess ential hypertension 6546216 I10 Pure hypercholesterolemia [id number] E78.00 [id number] Tacos Correa MD [facility] [address] [facility] [place] [address] 06/19/2023 10:00:12 06/19/2023 11:21:15 Benign essential hypertension [id number] I10 Anxiety 51458214 F41.9 Pure hypercholesterolemia [id number] E78.00 Health Concerns Section Related Observation LastModified by Organization Detai ls LastModified Time None Recorded Concern Status LastModified by Organization Details LastModified Time None Recorded Advance Directives Directive N: Payers Encounter Date Sequence Insurance Name Policy Number Policy Ames Covered Member ID Ames Member ID Guarantor Name 02/13/2023 2 [place] - DOS PRIOR TO 2024 - [employer] () Olinda F Martin [id number] Olinda F Martin 06/19/2023 2 [place] - DOS PRIOR TO 2024 - [employer] () Olinda F Martin [id number] Olinda F Martin 06/19/2023 1 [place] Olinda F Martin [id number] Olinda F Martin Notes Date Note Type Note Provider Name and Address Organization Details Recorded Time 02/13/2023 text/html Anxiety stable hypertension no headache or dizziness GERD 1 episode of breakthrough dyslipidemia tries to follow a low-fat Tacos Correa MD [address] [facility], [place] [address], [place], [address], [employer] 02/14/2023 19:33:20 06/19/2023 text/html Anxiety stable hypertension no headache or dizziness GERD is better dyslipidemia tries to follow a low-fat. Rhinitis doing fine Tacos Correa MD [address] [facility], [facility] [address], [place], [address], [employer] 06/25/2023 17:10:13 OBGyn Episode No OBEpisode recorded.
--- OUTSIDE RECORDS SUMMARY | 2024-08-10 20:33 | XMS_ITS | Clinical Summary ---
Author Organization [id number] [place] Address [address] [place] [id number] Care Team Providers Care Manufacturing Industrial Engineer Name Role Phone Tacos Correa MD Primary Care Provider [phone] Allergies No known active allergies Medications lisinopril [...] Treatment Not on file Insurance Care Teams Manufacturing Industrial Engineer Relationship Specialty Start Date End Date Tacos Correa MD PCP - General Internal Medicine 01/15/18
== END 2024-08-03 11:02 | disposition home or self-care (01) ==
PROVIDERS: Emergency Provider Emergency Medicine; PCP Internal Medicine
DX: M25.775 Osteophyte, left foot (principal); M72.2 Plantar fascial fibromatosis
CPT/HCPCS: 73630; 73650; 99283

== ENCOUNTER 2024-11-23 12:53 | Outpatient (CLI) | payer MEDICARE, OTHER, SELFPAY ==
--- NOTE | ~2024-11-23 | MM_ITS ---
EXAMINATION: MM screening [facility] BI w kofi HISTORY: Screening TECHNIQUE: Craniocaudal and mediolateral oblique 3-D tomosynthesis images were obtained and synthetic 2-D images were generated. CAD analysis was submitted and interpreted. COMPARISON: 08/06/2018 and dating back to 11/16/2005 BREAST PARENCHYMAL COMPOSITION: There are scattered areas of fibroglandular density. FINDINGS: Bulky calcifications are detected bilaterally, stable and benign in appearance. Redemonstration of an intramammary lymph node within the upper outer quadrant of the left breast, sta ble and benign in appearance. Stable parenchymal pattern without suspicious microcalcifications, architectural distortion, discrete masses or significant asymmetry. IMPRESSION: 1. No mammographic evidence of malignancy. 2. Recommend routine screening mammography in one year. BI-RADS Category 2: Benign finding(s). Reviewed, dictated and finalized at location A.
--- OUTSIDE RECORDS SUMMARY | 2024-11-23 14:21 | XMS_ITS | Data Portability ---
Author Organization [place] - [facility], Main Office Address [address] [place] [address] Assessment Encounter Date Assessment Date Assessment LastModified by Organization Details LastModified Time 02/13/2023 02/13/2023 Continue current therapy diagnosis discussed she can add Pepcid at night follow-up with me in 6 months if she has more breakthrough pain GERD she will call [email or web address] Not available 02/14/2023 19:33:05 06/19/2023 06/19/2023 Will continue current therapy follow-up 6 months blood work ordered Not available 06/25/2023 17:09:58 Plan of Treatment Reminders Order Date Submit Date Provider Last Modified By Organization Details Last Modified Time Details Appointments None recorded . Lab CMP, serum or plasma 023 06/19/20 [facility] (Lab), [address] [place], [address], 3 15:08:57 lipid panel, serum 023 06/19/20 [facility] (Lab), [address] [place], [address], 3 15:09:08 Referral None recorded . Procedures [...] T3 4.1 pg/mL 2.77-5 .27 Not Available [facility] (Lab) [address] [place], [address], 10/05/2021 12:40:09 10/06/19 22 10/05/2021 T4 FREE free T4 0.89 NG/dL 0.78-2 .19 Not Available [facility] (Lab) [address] [place], [address], 10/05/2021 12:23:49 10/06/19 22 10/05/2021 LIPID PANEL [...] WILL NOT BE REPOR GEORGE. Not Available [facility] (Lab) [address] [place], [address], 10/05/2021 12:05:08 10/06/19 22 10/05/2021 LIPID PANEL cholesterol 189 mg/dL 140-19 9 NIH ALEXANDR NSUS RECOM MENDA TION FOR TODD STERO L: ADULT CHILD LOW RISK: <200 <170 BORDE RLINE : <200- 239 ----- HIGH RISK: >240 >200 Not Available [facility] (Lab) [address] [place], [address], 10/05/2021 12:05:08 10/06/19 22 10/05/2021 LIPID PANEL triglyceride s 204 mg/dL 0-150 high NIH ALEXANDR NSUS REPOR T RECOM MENDA TION FOR TRIGL YCERI VALDEZ: ADULT CHILD LOW RISK: <150 ----- BODER LINE: 150-1 99 ----- HIGH RISK: >200 ----- Not Available [facility] (Lab) [address] [place], [address], 10/05/2021 12:05:08 10/06/19 22 10/05/2021 LIPID PANEL HDL cholesterol 52 mg/dL 40- Not Available [facility] (Lab) [address] [place], [address], 10/05/2021 12:05:08 10/06/19 22 10/05/2021 CBC/C OMPLE TE BLD COUNT W/DIF F white blood cells 7.7 x10'3 /uL 4.2-10 .8 Not Available [facility] (Lab) [address] [place], [address], 10/05/2021 10:11:29 10/06/19 22 10/05/2021 CBC/C OMPLE TE BLD COUNT W/DIF F red blood cells 4.81 x10'6 /uL 3.80-5 .20 Not Available [facility] (Lab) [address] [place], [address], 10/05/2021 10:11:29 10/06/19 22 10/05/2021 CBC/C OMPLE TE BLD COUNT W/DIF F hemoglobin 14.5 g/dL 12.0-1 5.6 Not Available [facility] (Lab) [address] [place], [address], 10/05/2021 10:11:29 10/06/19 22 10/05/2021 CBC/C OMPLE TE BLD COUNT W/DIF F hematocrit 43.8 % 35.7-4 5.7 Not Available [facility] (Lab) [address] [place], [address], 10/05/2021 10:11:29 10/06/19 22 10/05/2021 CBC/C OMPLE TE BLD COUNT W/DIF F mean red cell volume 91.1 fL 82.0-9 9.0 Not Available [facility] (Lab) [address] [place], [address], 10/05/2021 10:11:29 10/06/19 22 10/05/2021 CBC/C OMPLE TE BLD COUNT W/DIF F mean red cell hemoglobin 30.1 pg 27.0-3 3.0 Not Available [facility] (Lab) [address] [place], [address], 10/05/2021 10:11:29 10/06/19 22 10/05/2021 CBC/C OMPLE TE BLD COUNT W/DIF F mean RBC HGB concentratio n 33.1 g/dL 31.0-3 6.0 Not Available [facility] (Lab) [address] [place], [address], 10/05/2021 10:11:29 10/06/19 22 10/05/2021 CBC/C OMPLE TE BLD COUNT W/DIF F red cell distribution width 13.3 % 11.8-1 5.5 Not Available [facility] (Lab) [address] [place], [address], 10/05/2021 10:11:29 10/06/19 22 10/05/2021 CBC/C OMPLE TE BLD COUNT W/DIF F platelets 219 x10'3 /uL 150-40 0 Not Available [facility] (Lab) [address] [place], [address], 10/05/2021 10:11:29 10/06/19 22 10/05/2021 CBC/C OMPLE TE BLD COUNT W/DIF F mean platelet volume 10.2 fL 9.0-12 .4 Not Available [facility] (Lab) [address] [place], [address], 10/05/2021 10:11:29 10/06/19 22 10/05/2021 CBC/C OMPLE TE BLD COUNT W/DIF F neutrophils 57.3 % 39.0-7 2.0 Not Available [facility] (Lab) [address] [place], [address], 10/05/2021 10:11:29 10/06/19 22 10/05/2021 CBC/C OMPLE TE BLD COUNT W/DIF F lymphocytes 28.3 % 16.0-4 7.0 Not Available [facility] (Lab) [address] [place], [address], 10/05/2021 10:11:29 10/06/19 22 10/05/2021 CBC/C OMPLE TE BLD COUNT W/DIF F monocytes 8.1 % 5.0-12 .0 Not Available [facility] (Lab) [address] [place], [address], 10/05/2021 10:11:29 10/06/19 22 10/05/2021 CBC/C OMPLE TE BLD COUNT W/DIF F eosinophils 5.5 % 1.0-7. 0 Not Available [facility] (Lab) [address] [place], [address], 10/05/2021 10:11:29 10/06/19 22 10/05/2021 CBC/C OMPLE TE BLD COUNT W/DIF F basophils 0.4 % 0.0-2. 0 Not Available [facility] (Lab) [address] [place], [address], 10/05/2021 10:11:29 10/06/19 22 10/05/2021 CBC/C OMPLE TE BLD COUNT W/DIF F immature granulocytes 0.4 % 0.00-0 .50 Not Available [facility] (Lab) [address] [place], [address], 10/05/2021 10:11:29 10/06/19 22 10/05/2021 CBC/C OMPLE TE BLD COUNT W/DIF F neutrophils, absolute count 4.41 x10'3 /uL 1.5-8. 0 Not Available [facility] (Lab) [address] [place], [address], 10/05/2021 10:11:29 10/06/19 22 10/05/2021 CBC/C OMPLE TE BLD COUNT W/DIF F lymphocytes, absolute count 2.18 x10'3 /uL 1.07-3 .43 Not Available [facility] (Lab) [address] [place], [address], 10/05/2021 10:11:29 10/06/19 22 10/05/2021 CBC/C OMPLE TE BLD COUNT W/DIF F monocytes, absolute count 0.62 x10'3 /uL 0.29-0 .99 Not Available [facility] (Lab) [address] [place], [address], 10/05/2021 10:11:29 10/06/19 22 10/05/2021 CBC/C OMPLE TE BLD COUNT W/DIF F eosinophils, absolute count 0.42 x10'3 /uL 0.02-0 .53 Not Available [facility] (Lab) [address] [place], [address], 10/05/2021 10:11:29 10/06/19 22 10/05/2021 CBC/C OMPLE TE BLD COUNT W/DIF F basophils, absolute count 0.03 x10'3 /uL 0.01-0 .08 Not Available [facility] (Lab) [address] [place], [address], 10/05/2021 10:11:29 10/06/19 22 10/05/2021 CBC/C OMPLE TE BLD COUNT W/DIF F immature granulocytes ,absolute 0.03 x10'3 /uL 0.00-0 .05 Not Available [facility] (Lab) [address] [place], [address], 10/05/2021 10:11:29 10/06/19 22 10/05/2021 CBC/C OMPLE TE BLD COUNT W/DIF F nucleated red blood cells 0.0 % -0 Not Available [facility] (Lab) [address] [place], [address], 10/05/2021 10:11:29 10/06/19 22 10/05/2021 CBC/C OMPLE TE BLD COUNT W/DIF F NRBC# 0.00 x10'3 /uL Not Available [facility] (Lab) [address] [place], [address], 10/05/2021 10:11:29 10/06/19 22 10/05/2021 TSH thyroid-stim ulating hormone 2.730 uIU/m L 0.465- 4.680 Not Available [facility] (Lab) [address] [place], [address], 10/05/2021 12:31:18 10/06/19 22 10/05/2021 MAGNE SIUM magnesium 2.1 mg/dL 1.6-2. 3 Not Available [facility] (Lab) [address] [place], [address], 10/05/2021 12:05:12 10/06/19 22 10/05/2021 COMPR EHENS SELVIN METAB OLIC PANEL sodium 143 mmol/ L 137-14 5 Not Available [facility] (Lab) [address] [place], [address], 10/05/2021 12:04:59 10/06/19 22 10/05/2021 COMPR EHENS SELVIN METAB OLIC PANEL potassium 4.4 mmol/ L 3.5-5. 1 Not Available [facility] (Lab) [address] [place], [address], 10/05/2021 12:04:59 10/06/19 22 10/05/2021 COMPR EHENS SELVIN METAB OLIC PANEL chloride 108 mmol/ L 98-107 high Not Available [facility] (Lab) [address] [place], [address], 10/05/2021 12:04:59 10/06/19 22 10/05/2021 COMPR EHENS SELVIN METAB OLIC PANEL carbon dioxide 29 mmol/ L 22-30 Not Available [facility] (Lab) [address] [place], [address], 10/05/2021 12:04:59 10/06/19 22 10/05/2021 COMPR EHENS SELVIN METAB OLIC PANEL agap 10.4 mmol/ L 14-22 low Not Available [facility] (Lab) [address] [place], [address], 10/05/2021 12:04:59 10/06/19 22 10/05/2021 COMPR EHENS SELVIN METAB OLIC PANEL glucose 84 mg/dL 70-99 Not Available [facility] (Lab) [address] [place], [address], 10/05/2021 12:04:59 10/06/19 22 10/05/2021 COMPR EHENS SELVIN METAB OLIC PANEL BUN 11 mg/dL 8-19 Not Available [facility] (Lab) [address] [place], [address], 10/05/2021 12:04:59 10/06/19 22 10/05/2021 COMPR EHENS SELVIN METAB OLIC PANEL creatinine 0.81 mg/dL 0.66-1 .25 Not Available [facility] (Lab) [address] [place], [address], 10/05/2021 12:04:59 10/06/19 22 10/05/2021 COMPR EHENS SELVIN METAB OLIC PANEL bilirubin, total 0.30 mg/dL 0.20-1 .30 Not Available [facility] (Lab) [address] [place], [address], 10/05/2021 12:04:59 10/06/19 22 10/05/2021 COMPR EHENS SELVIN METAB OLIC PANEL GFR >60 Refer ence Range : [place] ge GFR Healt hy Adult : >60 [...] calcu lator is avail able on the [facility] websi te: [email or web address] :[email or web address] [email or web address] r_cal culat or Not Available [facility] (Lab) [address] [place], [address], 10/05/2021 12:04:59 10/06/19 22 10/05/2021 COMPR EHENS SELVIN METAB OLIC PANEL alkaline phosphatase 76 U/L 38-126 Not Available [facility] (Lab) [address] [place], [address], 10/05/2021 12:04:59 10/06/19 22 10/05/2021 COMPR EHENS SELVIN METAB OLIC PANEL alanine aminotransfe rase 26 U/L 0-35 Not Available [facility] (Lab) [address] [place], [address], 10/05/2021 12:04:59 10/06/19 22 10/05/2021 COMPR EHENS SELVIN METAB OLIC PANEL aspartate aminotransfe rase 24 U/L 15-37 Not Available [facility] (Lab) [address] [place], [address], 10/05/2021 12:04:59 10/06/19 22 10/05/2021 COMPR EHENS SELVIN METAB OLIC PANEL calcium 9.7 mg/dL 8.4-10 .2 Not Available [facility] (Lab) [address] [place], [address], 10/05/2021 12:04:59 10/06/19 22 10/05/2021 COMPR EHENS SELVIN METAB OLIC PANEL total protein 6.8 g/dL 6.3-8. 2 Not Available [facility] (Lab) [address] [place], [address], 10/05/2021 12:04:59 10/06/19 22 10/05/2021 COMPR EHENS SELVIN METAB OLIC PANEL albumin 4.1 g/dL 3.0-4. 4 Not Available [facility] (Lab) [address] [place], [address], 10/05/2021 12:04:59 10/06/19 22 10/05/2021 COMPR EHENS SELVIN METAB OLIC PANEL globulin 2.7 g/dL 2.6-4. 2 Not Available [facility] (Lab) [address] [place], [address], 10/05/2021 12:04:59 10/06/19 22 10/05/2021 COMPR EHENS SELVIN METAB OLIC PANEL A/G ratio 1.5 ratio 1.0-2. 0 Not Available [facility] (Lab) [address] [place], [address], 10/05/2021 12:04:59 10/06/1910/05/2021 BNP/B -NATR IURET IC PEPTI DE BNP 59 pg/mL 4-125 Not Available [facility] (Lab) [address] [place], [address], 10/05/2021 10:47:46 08/15/19 23 08/15/2022 CBC/C OMPLE TE BLD COUNT W/DIF F mean RBC HGB concentratio n 33.2 g/dL 31.0-3 6.0 Not Available [facility] (Lab) [address] [place], [address], 08/15/2022 13:19:12 08/15/19 23 08/15/2022 CBC/C OMPLE TE BLD COUNT W/DIF F white blood cells 8.3 x10'3 /uL 4.2-10 .8 Not Available [facility] (Lab) [address] [place], [address], 08/15/2022 13:19:12 08/15/19 23 08/15/2022 CBC/C OMPLE TE BLD COUNT W/DIF F red blood cells 5.03 x10'6 /uL 3.80-5 .20 Not Available [facility] (Lab) [address] [place], [address], 08/15/2022 13:19:12 08/15/19 23 08/15/2022 CBC/C OMPLE TE BLD COUNT W/DIF F hemoglobin 15.2 g/dL 12.0-1 5.6 Not Available [facility] (Lab) [address] [place], [address], 08/15/2022 13:19:12 08/15/19 23 08/15/2022 CBC/C OMPLE TE BLD COUNT W/DIF F hematocrit 45.8 % 35.7-4 5.7 high Not Available [facility] (Lab) [address] [place], [address], 08/15/2022 13:19:12 08/15/19 23 08/15/2022 CBC/C OMPLE TE BLD COUNT W/DIF F mean red cell volume 91.1 fL 82.0-9 9.0 Not Available [facility] (Lab) [address] [place], [address], 08/15/2022 13:19:12 08/15/19 23 08/15/2022 CBC/C OMPLE TE BLD COUNT W/DIF F mean red cell hemoglobin 30.2 pg 27.0-3 3.0 Not Available [facility] (Lab) [address] [place], [address], 08/15/2022 13:19:12 08/15/19 23 08/15/2022 CBC/C OMPLE TE BLD COUNT W/DIF F red cell distribution width 13.1 % 11.8-1 5.5 Not Available [facility] (Lab) [address] [place], [address], 08/15/2022 13:19:12 08/15/19 23 08/15/2022 CBC/C OMPLE TE BLD COUNT W/DIF F platelets 232 x10'3 /uL 150-40 0 Not Available [facility] (Lab) [address] [place], [address], 08/15/2022 13:19:12 08/15/1908/15/2022 CBC/C OMPLE TE BLD COUNT W/DIF F mean platelet volume 11.0 fL 9.0-12 .4 Not Available [facility] (Lab) [address] [place], [address], 08/15/2022 13:19:12 08/15/19 23 08/15/2022 CBC/C OMPLE TE BLD COUNT W/DIF F neutrophils 62.2 % 39.0-7 2.0 Not Available [facility] (Lab) [address] [place], [address], 08/15/2022 13:19:12 08/15/19 23 08/15/2022 CBC/C OMPLE TE BLD COUNT W/DIF F lymphocytes 27.1 % 16.0-4 7.0 Not Available [facility] (Lab) [address] [place], [address], 08/15/2022 13:19:12 08/15/19 23 08/15/2022 CBC/C OMPLE TE BLD COUNT W/DIF F monocytes 5.7 % 5.0-12 .0 Not Available [facility] (Lab) [address] [place], [address], 08/15/2022 13:19:12 08/15/19 23 08/15/2022 CBC/C OMPLE TE BLD COUNT W/DIF F eosinophils 4.2 % 1.0-7. 0 Not Available [facility] (Lab) [address] [place], [address], 08/15/2022 13:19:12 08/15/19 23 08/15/2022 CBC/C OMPLE TE BLD COUNT W/DIF F basophils 0.4 % 0.0-2. 0 Not Available [facility] (Lab) [address] [place], [address], 08/15/2022 13:19:12 08/15/19 23 08/15/2022 CBC/C OMPLE TE BLD COUNT W/DIF F immature granulocytes 0.4 % 0.00-0 .50 Not Available [facility] (Lab) [address] [place], [address], 08/15/2022 13:19:12 08/15/19 23 08/15/2022 CBC/C OMPLE TE BLD COUNT W/DIF F neutrophils, absolute count 5.16 x10'3 /uL 1.5-8. 0 Not Available [facility] (Lab) [address] [place], [address], 08/15/2022 13:19:12 08/15/19 23 08/15/2022 CBC/C OMPLE TE BLD COUNT W/DIF F lymphocytes, absolute count 2.24 x10'3 /uL 1.07-3 .43 Not Available [facility] (Lab) [address] [place], [address], 08/15/2022 13:19:12 08/15/19 23 08/15/2022 CBC/C OMPLE TE BLD COUNT W/DIF F monocytes, absolute count 0.47 x10'3 /uL 0.29-0 .99 Not Available [facility] (Lab) [address] [place], [address], 08/15/2022 13:19:12 08/15/19 23 08/15/2022 CBC/C OMPLE TE BLD COUNT W/DIF F eosinophils, absolute count 0.35 x10'3 /uL 0.02-0 .53 Not Available [facility] (Lab) [address] [place], [address], 08/15/2022 13:19:12 08/15/1908/15/2022 CBC/C OMPLE TE BLD COUNT W/DIF F basophils, absolute count 0.03 x10'3 /uL 0.01-0 .08 Not Available [facility] (Lab) [address] [place], [address], 08/15/2022 13:19:12 08/15/19 23 08/15/2022 CBC/C OMPLE TE BLD COUNT W/DIF F immature granulocytes ,absolute 0.03 x10'3 /uL 0.00-0 .05 Not Available [facility] (Lab) [address] [place], [address], 08/15/2022 13:19:12 08/15/19 23 08/15/2022 CBC/C OMPLE TE BLD COUNT W/DIF F nucleated red blood cells 0.0 % -0 Not Available [facility] (Lab) [address] [place], [address], 08/15/2022 13:19:12 08/15/19 23 08/15/2022 CBC/C OMPLE TE BLD COUNT W/DIF F NRBC# 0.00 x10'3 /uL Not Available [facility] (Lab) [address] [place], [address], 08/15/2022 13:19:12 08/15/19 23 08/15/2022 LIPID PANEL [...] WILL NOT BE REPOR GEORGE. Not Available [facility] (Lab) [address] [place], [address], 08/15/2022 13:54:31 08/15/19 23 08/15/2022 LIPID PANEL cholesterol 203 mg/dL 140-19 9 high NIH ALEXANDR NSUS RECOM MENDA TION FOR TODD STERO L: ADULT CHILD LOW RISK: <200 <170 BORDE RLINE : <200- 239 ----- HIGH RISK: >240 >200 Not Available [facility] (Lab) [address] [place], [address], 08/15/2022 13:54:31 08/15/1908/15/2022 LIPID PANEL triglyceride s 222 mg/dL 0-150 high NIH ALEXANDR NSUS REPOR T RECOM MENDA TION FOR TRIGL YCERI VALDEZ: ADULT CHILD LOW RISK: <150 ----- BODER LINE: 150-1 99 ----- HIGH RISK: >200 ----- Not Available [facility] (Lab) [address] [facility] [place], [address], 08/15/2022 13:54:31 08/15/19 23 08/15/2022 LIPID PANEL HDL cholesterol 56 mg/dL 40- Not Available [facility] (Lab) [address] [place], [address], 08/15/2022 13:54:31 08/15/19 23 08/15/2022 COMPR EHENS SELVIN METAB OLIC PANEL carbon dioxide 27 mmol/ L 22-30 Not Available [facility] (Lab) [address] [place], [address], 08/15/2022 13:54:26 08/15/19 23 08/15/2022 COMPR EHENS SELVIN METAB OLIC PANEL sodium 142 mmol/ L 137-14 5 Not Available [facility] (Lab) [address] [place], [address], 08/15/2022 13:54:26 08/15/19 23 08/15/2022 COMPR EHENS SELVIN METAB OLIC PANEL potassium 4.8 mmol/ L 3.5-5. 1 Not Available [facility] (Lab) [address] [place], [address], 08/15/2022 13:54:26 08/15/19 23 08/15/2022 COMPR EHENS SELVIN METAB OLIC PANEL chloride 108 mmol/ L 98-107 high Not Available [facility] (Lab) [address] [place], [address], 08/15/2022 13:54:26 08/15/19 23 08/15/2022 COMPR EHENS SELVIN METAB OLIC PANEL anion gap 11.8 mmol/ L 14-22 low Not Available [facility] (Lab) [address] [place], [address], 08/15/2022 13:54:26 08/15/19 23 08/15/2022 COMPR EHENS SELVIN METAB OLIC PANEL glucose 96 mg/dL 70-99 Not Available [facility] (Lab) [address] [place], [address], 08/15/2022 13:54:26 08/15/19 23 08/15/2022 COMPR EHENS SELVIN METAB OLIC PANEL BUN 14 mg/dL 8-19 Not Available [facility] (Lab) [address] [place], [address], 08/15/2022 13:54:26 08/15/19 23 08/15/2022 COMPR EHENS SELVIN METAB OLIC PANEL creatinine 0.84 mg/dL 0.66-1 .25 Not Available [facility] (Lab) [address] [place], [address], 08/15/2022 13:54:26 08/15/19 23 08/15/2022 COMPR EHENS SELVIN METAB OLIC PANEL GFR >60 Refer ence Range : [place] ge GFR Healt hy Adult : >60 [...] or ethni c subgr oups, such as Hishi nics. Outsi de the valid ated alyssia [...] calcu lator is avail able on the [facility] websi te: [email or web address] :[email or web address] s/kdo qi/gf r_cal culat or Not Available [facility] (Lab) [address] [place], [address], 08/15/2022 13:54:26 08/15/19 23 08/15/2022 COMPR EHENS SELVIN METAB OLIC PANEL alkaline phosphatase 80 U/L 38-126 Not Available [facility] (Lab) [address] [place], [address], 08/15/2022 13:54:26 08/15/19 23 08/15/2022 COMPR EHENS SELVIN METAB OLIC PANEL alanine aminotransfe rase 26 U/L 0-35 Not Available [facility] (Lab) [address] [place], [address], 08/15/2022 13:54:26 08/15/19 23 08/15/2022 COMPR EHENS SELVIN METAB OLIC PANEL aspartate aminotransfe rase 22 U/L 15-37 Not Available [facility] (Lab) [address] [place], [address], 08/15/2022 13:54:26 08/15/19 23 08/15/2022 COMPR EHENS SELVIN METAB OLIC PANEL bilirubin, total 0.50 mg/dL 0.20-1 .30 Not Available [facility] (Lab) [address] [place], [address], 08/15/2022 13:54:26 08/15/19 23 08/15/2022 COMPR EHENS SELVIN METAB OLIC PANEL calcium 9.7 mg/dL 8.4-10 .2 Not Available [facility] (Lab) [address] [place], [address], 08/15/2022 13:54:26 08/15/19 23 08/15/2022 COMPR EHENS SELVIN METAB OLIC PANEL total protein 6.7 g/dL 6.3-8. 2 Not Available [facility] (Lab) [address] [place], [address], 08/15/2022 13:54:26 08/15/19 23 08/15/2022 COMPR EHENS SEVLIN METAB OLIC PANEL albumin 4.2 g/dL 3.0-4. 4 Not Available [facility] (Lab) [address] [place], [address], 08/15/2022 13:54:26 08/15/19 23 08/15/2022 COMPR EHENS SELVIN METAB OLIC PANEL globulin 2.5 g/dL 2.6-4. 2 low Not Available [facility] (Lab) [address] [place], [address], 08/15/2022 13:54:26 08/15/19 23 08/15/2022 COMPR EHENS SELVIN METAB OLIC PANEL A/G ratio 1.7 ratio 1.0-2. 0 Not Available [facility] (Lab) [address] [place], [address], 08/15/2022 13:54:26 08/15/19 23 08/15/2022 URINA LYSIS COMPL ETE/I RIS W/RFX nitrite negati ve negati ve- Not Available [facility] (Lab) [address] [place], [address], 08/15/2022 13:33:50 08/15/19 23 08/15/2022 URINA LYSIS COMPL ETE/I RIS W/RFX color light- yellow Not Available [facility] (Lab) [address] [place], [address], 08/15/2022 13:33:50 08/15/19 23 08/15/2022 URINA LYSIS COMPL ETE/I RIS W/RFX appear clear Not Available [facility] (Lab) [address] [place], [address], 08/15/2022 13:33:50 08/15/19 23 08/15/2022 URINA LYSIS COMPL ETE/I RIS W/RFX specific gravity 1.007 1.001- 1.030 Not Available [facility] (Lab) [address] [place], [address], 08/15/2022 13:33:50 08/15/19 23 08/15/2022 URINA LYSIS COMPL ETE/I RIS W/RFX pH 7.0 pH_un its 5.0-9. 0 Not Available [facility] (Lab) [address] [place], [address], 08/15/2022 13:33:50 08/15/19 23 08/15/2022 URINA LYSIS COMPL ETE/I RIS W/RFX leukocytes negati ve jose juan/u L negati ve- Not Available [facility] (Lab) [address] [place], [address], 08/15/2022 13:33:50 08/15/19 23 08/15/2022 URINA LYSIS COMPL ETE/I RIS W/RFX protein negati ve mg/dL negati ve- Not Available [facility] (Lab) [address] [place], [address], 08/15/2022 13:33:50 08/15/19 23 08/15/2022 URINA LYSIS COMPL ETE/I RIS W/RFX glucose normal mg/dL normal - Not Available [facility] (Lab) [address] [place], [address], 08/15/2022 13:33:50 08/15/19 23 08/15/2022 URINA LYSIS COMPL ETE/I RIS W/RFX ketones negati ve mg/dL negati ve- Not Available [facility] (Lab) [address] [place], [address], 08/15/2022 13:33:50 08/15/19 23 08/15/2022 URINA LYSIS COMPL ETE/I RIS W/RFX urobilinogen normal mg/dL normal - Not Available [facility] (Lab) [address] [place], [address], 08/15/2022 13:33:50 08/15/19 23 08/15/2022 URINA LYSIS COMPL ETE/I RIS W/RFX bilirubin negati ve mg/dL negati ve- Not Available [facility] (Lab) [address] [place], [address], 08/15/2022 13:33:50 08/15/19 23 08/15/2022 URINA LYSIS COMPL ETE/I RIS W/RFX blood negati ve mg/dL negati ve- Not Available [facility] (Lab) [address] [place], [address], 08/15/2022 13:33:50 08/15/19 23 08/15/2022 URINA LYSIS COMPL ETE/I RIS W/RFX white blood cells 0-8 /i??h pfi?? 0-8 Not Available [facility] (Lab) [address] [place], [address], 08/15/2022 13:33:50 08/15/19 23 08/15/2022 URINA LYSIS COMPL ETE/I RIS W/RFX red blood cells 0-4 /i??h pfi?? 0-4 Not Available [facility] (Lab) [address] [place], [address], 08/15/2022 13:33:50 08/15/19 23 08/15/2022 URINA LYSIS COMPL ETE/I RIS W/RFX bacteria occasi onal abnormal Not Available [facility] (Lab) [address] [place], [address], 08/15/2022 13:33:50 08/15/19 23 08/15/2022 URINA LYSIS COMPL ETE/I RIS W/RFX squamous epithelial packed field /i??l pfi?? abnormal Not Available [facility] (Lab) [address] [place], [address], 08/15/2022 13:33:50 06/19/20 23 06/19/2023 COMPR EHENS SELVIN METAB OLIC PANEL sodium 141 mmol/ L 137-14 5 Not Available [facility] (Lab) [address] [place], [address], 06/19/2023 15:08:57 06/19/2006/19/2023 COMPR EHENS SELVIN METAB OLIC PANEL potassium 4.2 mmol/ L 3.5-5. 1 Not Available [facility] (Lab) [address] [place], [address], 06/19/2023 15:08:57 06/19/20 23 06/19/2023 COMPR EHENS SELVIN METAB OLIC PANEL chloride 107 mmol/ L 98-107 Not Available [facility] (Lab) [address] [place], [address], 06/19/2023 15:08:57 06/19/20 23 06/19/2023 COMPR EHENS SELVIN METAB OLIC PANEL carbon dioxide 27 mmol/ L 22-30 Not Available [facility] (Lab) [address] [place], [address], 06/19/2023 15:08:57 06/19/20 23 06/19/2023 COMPR EHENS SELVIN METAB OLIC PANEL anion gap 11.2 mmol/ L 14-22 low Not Available [facility] (Lab) [address] [place], [address], 06/19/2023 15:08:57 06/19/20 23 06/19/2023 COMPR EHENS SELVIN METAB OLIC PANEL glucose 107 mg/dL 70-99 high Not Available [facility] (Lab) [address] [place], [address], 06/19/2023 15:08:57 06/19/20 23 06/19/2023 COMPR EHENS SELVIN METAB OLIC PANEL BUN 11 mg/dL 8-19 Not Available [facility] (Lab) [address] [place], [address], 06/19/2023 15:08:57 06/19/20 23 06/19/2023 COMPR EHENS SELVIN METAB OLIC PANEL creatinine 0.78 mg/dL 0.66-1 .25 Not Available [facility] (Lab) [address] [place], [address], 06/19/2023 15:08:57 06/19/20 23 06/19/2023 COMPR EHENS SELVIN METAB OLIC PANEL GFR >60 Refer ence Range : [place] ge GFR Healt hy Adult : >60 [...] or ethni c subgr oups, such as [facility] n[facility]. Outsi de the valid ated alyssia [...] calcu lator is avail able on the [facility] websi te: [email or web address] :[email or web address] qi/gf r_cal culat or Not Available [facility] (Lab) [address] [place], [address], 06/19/2023 15:08:57 06/19/20 23 06/19/2023 COMPR EHENS SELVIN METAB OLIC PANEL alkaline phosphatase 79 U/L 38-126 Not Available [facility] (Lab) [address] [place], [address], 06/19/2023 15:08:57 06/19/20 23 06/19/2023 COMPR EHENS SELVIN METAB OLIC PANEL alanine aminotransfe rase 27 U/L 0-35 Not Available [facility] (Lab) [address] [place], [address], 06/19/2023 15:08:57 06/19/20 23 06/19/2023 COMPR EHENS SELVIN METAB OLIC PANEL aspartate aminotransfe rase 36 U/L 15-37 Not Available [facility] (Lab) [address] [place], [address], 06/19/2023 15:08:57 06/19/20 23 06/19/2023 COMPR EHENS SELVIN METAB OLIC PANEL bilirubin, total 0.50 mg/dL 0.20-1 .30 Not Available [facility] (Lab) [address] [place], [address], 06/19/2023 15:08:57 06/19/20 23 06/19/2023 COMPR EHENS SELVIN METAB OLIC PANEL calcium 9.8 mg/dL 8.4-10 .2 Not Available [facility] (Lab) [address] [place], [address], 06/19/2023 15:08:57 06/19/20 23 06/19/2023 COMPR EHENS SELVIN METAB OLIC PANEL total protein 7.3 g/dL 6.3-8. 2 Not Available [facility] (Lab) [address] [place], [address], 06/19/2023 15:08:57 06/19/20 23 06/19/2023 COMPR EHENS SELVIN METAB OLIC PANEL albumin 4.2 g/dL 3.0-4. 4 Not Available [facility] (Lab) [address] [place], [address], 06/19/2023 15:08:57 06/19/20 23 06/19/2023 COMPR EHENS SELVIN METAB OLIC PANEL globulin 3.1 g/dL 2.6-4. 2 Not Available [facility] (Lab) [address] [place], [address], 06/19/2023 15:08:57 06/19/20 23 06/19/2023 COMPR EHENS SELVIN METAB OLIC PANEL A/G ratio 1.4 ratio 1.0-2. 0 Not Available [facility] (Lab) [address] [place], [address], 06/19/2023 15:08:57 06/19/20 23 06/19/2023 LIPID PANEL cholesterol 215 mg/dL 140-19 9 high NIH ALEXANDR NSUS RECOM MENDA TION FOR TODD STERO L: ADULT CHILD LOW RISK: <200 <170 BORDE RLINE : <200- 239 ----- HIGH RISK: >240 >200 Not Available [facility] (Lab) [address] [place], [address], 06/19/2023 15:09:08 06/19/2006/19/2023 LIPID PANEL triglyceride s 225 mg/dL 0-150 high NIH ALEXANDR NSUS REPOR T RECOM MENDA TION FOR TRIGL YCERI VALDEZ: ADULT CHILD LOW RISK: <150 ----- BODER LINE: 150-1 99 ----- HIGH RISK: >200 ----- Not Available [facility] (Lab) [address] [place], [address], 06/19/2023 15:09:08 06/19/20 23 06/19/2023 LIPID PANEL HDL cholesterol 47 mg/dL 40- Not Available [facility] (Lab) [address] [place], [address], 06/19/2023 15:09:08 06/19/20 23 06/19/2023 LIPID PANEL [...] WILL NOT BE REPOR GEORGE. Not Available [facility] (Lab) [address] [place], [address], 06/19/2023 15:09:08 10/06/19 22 10/05/2021 XR, chest , 2 view [facility] [address] [place] [address] [phone] Patien t Name: ISIS MARTIN Access ion #: [id number] Sex: F : 1959 1 Locati [...] 2 view chest. Page 1 of 2 [facility] michael Name: ISIS MARTIN Access ion #: [id number] Sex: F : 1959 1 Exam Date: 10/06/19 8:44 AM Exam Name: XR CHEST 2V Admitt ing Diagno sis(es ): Create d and electr onical ly signed by: Samm roy MD Signed Date: 10/06/19 10:55 AM (CT) Dictat ed by: Samm roy MD (CT) (CT) Page 2 of 2 [id number] [facility] (Imaging) [address] [place], [address], 10/03/2022 06:08:38 10/26/19 22 10/05/2021 , echoc ardio gram No observ ation record ed. [id number] [facility] (One Call Scheduling) [address] [place], [address], 10/03/2022 06:08:38 Result Notes None recorded. Problems Name Problem SNOMED Code Status Onset Date Resolution Date Notes Provider Name and Address Organization Details Recorded Time Benign essential hypertension 9658278 Active Not Available [facility] 3 05:37:14 Pain in throat 095602518 Active 2021 Not Available [facility] 3 05:37:14 Insomnia 761673545 Active Not Available [facility] 3 05:37:14 Abdominal pain 81144122 Active Not Available [facility] 3 05:37:14 Venous insufficiency of leg 214179247 Active 2021 Not Available [facility] 3 05:37:14 Gastroesophag eal reflux disease 891825162 Active Not Available [facility] 3 05:37:14 Dyspnea 442526657 Active 2021 Not Available [facility] 3 05:37:14 Pure hypercholeste rolemia 208715518 Active Not Available [facility] 3 05:37:14 Malaise and fatigue 563409262 Active Not Available [facility] 3 05:37:14 Pain in calf 489696549 Active Not Available [facility] 3 05:37:14 Vitamin D deficiency 43215656 Active Not Available [facility] 3 05:37:14 Disorder of vitamin D 540357577 Active Not Available [facility] 3 05:37:14 Eosinophil count above reference range 286407742 Active Not Available [facility] 3 05:37:14 Anxiety 53546514 Active Not Available [facility] 3 05:37:14 Dysuria 55262075 Active 2022 Not Available [facility] 3 05:37:14 Upper respiratory infection 29209168 Active 2021 Not Available [facility] 3 05:37:14 Rhinitis 25837527 Active Not Available [facility] 3 05:37:14 Skin lesion 54331233 Active 2022 Not Available [facility] 3 05:37:14 Cough 87728498 Active 2023 LUCHO Vanegas, MD - [facility] 4 16:02:44 Problem Notes None recorded. Procedures Surgical History None recorded. Imaging Results Imaging Date Name Status LastModified by Organization Details LastModified Time 10/05/2021 XR, chest, 2 view completed MIGRATION. [id number] [facility] (Imaging) [address] [place], [address], 10/03/2022 06:08:38 10/05/2021 US, echocardiogram completed MIGRATION .[id number] [facility] (One Call Scheduling) [address] [place], [address], 10/03/2022 06:08:38 Procedure Notes None recorded. Medical [...] azelastine 137 mcg (0.1 %) nasal spray [place] 2 sprays every day by intranasa l [...] completed Not Available Not Available Not Available [place] 08/25 completed Not Available Not Available Not [...] kg/m2 163.83 cm 78 /min 97 [degF] 46666.9 9 g 108 mm[Hg] 66 mm[Hg] Not Available [facility] 3 05:59:35 Date Recorded Body mass index (BMI) Body height Heart rate Body temperature Body weight Systolic blood pressure Diastolic blood pressure Provider Name and Address Organization Details Last Updated DateTime 2 35 kg/m2 163.83 cm 74 /min 96.8 [degF] 71299.6 2 g 124 mm[Hg] 70 mm[Hg] Not Available [facility] 3 05:59:35 Date Recorded Body mass index (BMI) Body height Heart rate Body temperature Body weight Systolic blood pressure Diastolic blood pressure Provider Name and Address Organization Details Last Updated DateTime 3 33.6 kg/m2 163.83 cm 70 /min 97.9 [degF] 74813.8 8 g 130 mm[Hg] 80 mm[Hg] Not Available [facility] 3 05:59:36 Date Recorded Body height Body mass index (BMI) Body weight Body temperature Heart rate Systolic blood pressure Diastolic blood pressure Provider Name and Address Organization Details Last Updated DateTime 3 163.83 cm 33.8 kg/m2 46931.4 7 g 97.6 [degF] 81 /min 124 mm[Hg] 70 mm[Hg] Leslie bergman RN MD [employer] 3 10:06:24 Date Recorded Body height Body mass index (BMI) Body weight Body temperature Heart rate Systolic blood pressure Diastolic blood pressure Provider Name and Address Organization Details Last Updated DateTime 3 163.83 cm 33.5 kg/m2 35561.2 9 g 97.6 [degF] 74 /min 116 mm[Hg] 80 mm[Hg] LUCHO Bryant MD [employer] 3 10:10:38 Social History Question Answer Notes LastModified by Organization Details LastModified Time Tobacco Smoking Status Former Smoker quit 1992 Not Available [facility] 10/03/2022 05:54:51 Do You Have An Advance Directive? No MIGRATION.030 025473 Information not available 10/03/2022 What Is Your Level Of Alcohol Consumption? None MIGRATION.030 039902 Information not available 10/03/2022 What Is Your Level Of Caffeine Consumption? Moderate MIGRATION.030 484761 Information not available 10/03/2022 In The 14 Days Before Symptom Onset, Have You Had Close Contact With A Laboratory-confi rmed COVID-19 While That Case Was Ill? No MIGRATION.030 567334 Information not available 10/03/2022 In The 14 Days Before Symptom Onset, Have You Had Close Contact With A Person Who Is Under Investigation For COVID-19 While That Person Was Ill? No MIGRATION.030 233967 Information not available 10/03/2022 What Type Of Diet Are You Following? REGULAR MIGRATION.030 095129 Information not available 10/03/2022 What Is The Highest Grade Or Level Of School You Have Completed Or The Highest Degree You Have Received? 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 No MIGRATION.0301 [id number] Information not available 10/03/2022 What Is The Fluoride Status Of Your Home? Unknown MIGRATION.030 652415 Information not available 10/03/2022 When Did You Quit Smoking? 14+yearssincelastci ana MIGRATION.030 281176 Information not available 10/03/2022 Do You Use Insect Repellent Routinely? No MIGRATION.0301 755484 Information not available 10/03/2022 Where Do You Live? SingleLevelHouse MIGRATION.030 896783 Information not available 10/03/2022 Do You Have A Medical Power Of Anchor Operator? No MIGRATION.0301 049773 Information not available 10/03/2022 What Was The Date Of Your Most Recent Tobacco Screening? 06/19/2023 [email or web address] Information not available 06/19/2023 Do You Have Any Pets? Yes MIGRATION.0301 659053 Information not available 10/03/2022 What Is Your Relationship Status? MIGRATION.0301 784925 Information not available 10/03/2022 Do You Use Your Seat Belt Or Car Seat Routinely? Yes MIGRATION.0301 812530 Information not available 10/03/2022 Do You Have Smoke And Carbon Monoxide Detectors In Your Home? Yes MIGRATION.0301 107430 Information not available 10/03/2022 Are You Passively Exposed To Smoke? No MIGRATION.0301 752851 Information not available 10/03/2022 Are There Any Smokers In Your House? No MIGRATION.0301 522947 Information not available 10/03/2022 What Types Of Sporting Activities Do You Participate In? None MIGRATION.0301 127260 Information not available 10/03/2022 Do You Feel Stressed (tense, Restless, Nervous, Or Anxious, Or Unable To Sleep At Night)? [id number] MIGRATION.0301 216683 Information not available 10/03/2022 Do You Use Any Illicit Or Recreational Drugs? No MIGRATION.0301 006736 Information not available 10/03/2022 Do You Use Sunscreen Routinely? No MIGRATION.0301 815180 Information not available 10/03/2022 Has Tobacco Cessation Counseling Been Provided? No MIGRATION.0301 230375 Information not available 10/03/2022 Have You Recently Traveled Abroad? No MIGRATION.0301 331183 Information not available 10/03/2022 Do You Have Any Dietary Restrictions? No MIGRATION.030 618530 Information not available 10/03/2022 Do You Or Have You Ever Used Any Other Forms Of Tobacco Or Nicotine? No MIGRATION.0301 002302 Information not available 10/03/2022 Sex: Female Functional Status Question Answer Note LastModified by Organizat ion Details LastModified Time What is your exercise level? Moderate [id number] Information not available 10/03/2022 Mental Status None recorded. Family History Relationship Description Onset Age of this Age Resolved Age Notes LastModified by Organization Details LastModified Time Mother Heart disease 80 MIGRATION.140 [id number] Not available 10/03/2022 05:55:57 Father Heart disease 65 MIGRATION.332 [id number] Not available 10/03/2022 05:55:57 Father Diabetes mellitus MIGRATION.298 [id number] Not available 10/03/2022 05:55:57 Medical History Condition [...] ARTERY DISEASE (CAD) N ADDICTION CONCERNS N Impotence N ENDOMETRIOSIS N USE OF BLOOD THINNERS N SKIN [...] GLAUCOMA N FOOT PROBLEM N DIVERTICULITIS N SLEEP APNEA N CHICKENPOX N INFECTIOUS DISEASE N PROSTATE N HEART ARRHYTHMIA N INSOMNIA Y HIGH CHOLESTEROL / HYPERLIPIDEMIA Y EYE PROBLEMS N HYPERTHYROIDISM N EDEMA N CHRONIC PAIN SYNDROME N HYPOTHYROIDISM N CONSTIPATION N CAROTID BLOCKAGE N BACK / NECK PROBLEMS N ATHEROSCLEROSIS N BREAST PROBLEMS N DIALYSIS N ECZEMA N OSTEOPOROSIS N ARTHRITIS N APPENDICITIS N DIABETES, TYPE N BAD TEETH N ENT N HEARTBURN / REFLUX N AUTISM SPECTRUM DISORDER (ASD) N HEPATITIS / LIVER DISEASE N GOUT N SLEEP DISORDER N ALZHEIMER'S DISEASE N Brain Problems N DEMENTIA N HERPES N SEIZURES/EPILEPSY N HEADACHES/MIGRAINES N VASCULAR DISEASE N PACEMAKER N Blood Disorder N DIZZINESS N HEART DISEASE/HEART PROBLEMS N KIDNEY DISEASE N MULTIPLE SCLEROSIS N CANCER: SPECIFY N CARDIAC ARRHYTHMIA N ATRIAL FIBRILLATION N Gall Stones N PULMONARY EMBOLISM N AUTOIMMUNE DISEASE N Gynecological HistoryNo gynecological history recorded. Obstetrics History GPAL:G 0 P 0 0 0 0 Past Encounters Encounter ID Performer Location Encounter Start Date Encounter Closed Date Diagnosis/Indication Diagnosis SNOMED-CT Code Diagnosis ICD10 Code Diagnosis Note [id number] [facility] [place] [address] 1 04/11/2021 00:00:00 05/13/2021 12:16:53 [id number] [facility] [address] [address] 10/03/2021 00:00:00 10/21/2021 22:52:48 [id number] [facility] [address] [address] 02/06/2022 00:00:00 02/06/2022 21:05:24 [id number] [facility] [address] [address] 08/15/2022 00:00:00 08/18/2022 21:36:12 [id number] Tacos Correa MD [facility] [address] [address] 02/13/2023 09:53:24 02/13/2023 10:28:30 Anxiety 15220705 F41.9 Benign ess ential hypertension 0847662 I10 Pure hypercholesterolemia 184017045 E78.00 [id number] Tacos Correa MD [facility] [address] [place] [address] 06/19/2023 10:00:12 06/19/2023 11:21:15 Benign essential hypertension 6989542 I10 Anxiety 42344703 F41.9 Pure hypercholesterolemia 022172116 E78.00 Health Concerns Section Related Observation LastModified by Organization Detai ls LastModified Time None Recorded Concern Status LastModified by Organization Details LastModified Time None Recorded Advance Directives Directive N: Payers Encounter Date Sequence Insurance Name Policy Number Policy Ames Covered Member ID Ames Member ID Guarantor Name 02/13/2023 2 EAST - DOS PRIOR TO 2024 - [employer] () Olinda F Martin [id number] Olinda F Martin 06/19/2023 2 EAST - DOS PRIOR TO 2024 - [employer] () Olinda F Martin [id number] Olinda F Martin 06/19/2023 1 [place] Olinda F Martin [id number] Olinda F Martin Notes Date Note Type Note Provider Name and Address Organization Details Recorded Time 02/13/2023 text/html Anxiety stable hypertension no headache or dizziness GERD 1 episode of breakthrough dyslipidemia tries to follow a low-fat Tacos Correa MD [address], [place] [address], [place], [address], [place] 02/14/2023 19:33:20 06/19/2023 text/html Anxiety stable hypertension no headache or dizziness GERD is better dyslipidemia tries to follow a low-fat. Rhinitis doing fine Tacos Correa MD [address] [facility], [facility] [address], [place], [address], [place] 06/25/2023 17:10:13 OBGyn Episode No OBEpisode recorded.
--- OUTSIDE RECORDS SUMMARY | 2024-11-23 14:21 | XMS_ITS | Referral Summary ---
Author Organization [facility] [address] Address [address] [place] [address] Care Team Providers Care Mutuel Teller Name Role Phone Tacos Correa MD Primary Care Provider Allergies No known active allergies Medications lisinopril [...] 67 01/15/2018 1:53 PM CDT Temperature 36.7 C (98 F) 01/15/2018 1:53 PM CDT Respiratory Rate 16 01/15/2018 1:53 PM CDT Oxygen Saturation 97% 01/15/2018 1:53 PM CDT Inhaled Oxygen Concentration - - Weight 93.4 kg (205 lb 12.8 oz) 01/15/2018 1:53 PM CDT Height 163.8 cm (5' 4.5 ) 01/15/2018 1:53 PM CDT Body Mass Index 34.78 01/15/2018 1:53 PM CDT Plan of Treatment Not on file Insurance [facility] Address: [facility] [address] [place] [address] Care Teams Mutuel Teller Relationship Specialty Start Date End Date Tacos Correa MD PCP - General Internal Medicine 01/15/18
--- OUTSIDE RECORDS SUMMARY | 2024-11-23 14:21 | XMS_ITS | Clinical Summary ---
Author Organization [place] [id number] [place] Address [address] [place] [address] Care Team Providers Care Gas Regulator Repairer Helper Name Role Phone Tacos Correa MD Primary [...] Treatment Not on file Insurance Care Teams Gas Regulator Repairer Helper Relationship Specialty Start Date End Date Tacos Correa MD PCP - General Internal Medicine 01/15/18
--- OUTSIDE RECORDS SUMMARY | 2024-11-23 14:21 | XMS_ITS | Continuity of Care Document ---
Author Name [facility] Organization [facility] Care Team Providers Care Pushcart Peddler Name Role Phone [facility] Unavailable Unavailable Problems Combined list of problems from Department of Defense and Veterans Affairs facilities. It does not include entries that were removed or entered in error. Problem Status Onset Date Problem Type Date of Resolution Comments Source Laboratory Studies Inactive Condition Do D visit for: administrative purpose Inactive Condition DoD abdominal pain Inactive Condition Diff- PUD, gallstones, [...] [place], 8.5 g CANISTER Cancele d [id number] : 2023 0 Pharmac y Data Transac tion Service Facilit y ALBUTEROL SULFATE HFA (albuterol sulfate), 90 MCG, HFA AER AD, INHALATION, [place], 8.5 g CANISTER Active [id number] 4 2023 8.5 Pharmac y Data Transac tion Service Facilit y AMOX TR-POTASSIU M CLAVULANATE (AMOXICILLI N/POTASSIUM CLAV), 875-125 MG, TABLET, ORAL, SANDOZ, 20 ea. BOTTLE Active [id number] 4 2023 20 Pharmac y Data Transac tion Service Facilit y atorvastati n 20 mg tablet See Instruct ions, # 90 EA, 0 total refill(s ), Hard Stop Complet ed 03/31/2024 3 2023 90.0 Ambulat ory Pharmac y atorvastati n 20 mg tablet 20 mg, Oral, Daily, # 90 EA, 1 total refill(s ), Hard Stop Oral (given by mouth) Discont inued 07/02/2023 3 2022 90.0 Ambulat ory Pharmac y atorvastati n 40 mg tablet 40 mg, Oral, Daily, # 90 EA, 1 total refill(s ), Hard Stop Oral (given by mouth) Ordered 08/31/2025 5 2024 90.0 Ambulat ory Pharmac y atorvastati n 40 mg tablet 40 mg, Oral, Daily, # 90 EA, 0 total refill(s ), Hard Stop Oral (given by mouth) Complet ed 05/29/2024 4 2023 90.0 Ambulat ory Pharmac y atorvastati n 40 mg tablet 40 mg, Oral, Daily, # 90 EA, 1 total refill(s ), Hard Stop Oral (given by mouth) Discont inued 03/02/2024 4 2023 90.0 Ambulat ory Pharmac y atorvastati n 40 mg tablet 40 mg, Oral, Daily, # 90 EA, 0 total refill(s ), Hard Stop Oral (given by mouth) Complet ed 08/27/2024 4 2024 90.0 Ambulat ory Pharmac y AZITHROMYCI N (azithromyc in), 250 MG, TABLET, ORAL, SANDOZ, 6 ea. BLIST PACK Cancele d [id number] : 2023 0 Pharmac y Data Transac tion Service Facilit y Benzonatate ([employer]) 100 CAPSULE in 1 BOTTLE Active [id number] 09/07/19 2 4 2023 28 Pharmac y Data Transac tion Service Facilit y lisinopril 5 mg tablet See Instruct ions, # 90 EA, 0 total refill(s ), Hard Stop Discont inued 03/02/2024 3 2023 90.0 Ambulat ory Pharmac y lisinopril 5 mg tablet 5 mg, Oral, Daily, # 90 EA, 1 total refill(s ), Hard Stop Oral (given by mouth) Ordered 08/31/2025 5 2024 90.0 Ambulat ory Pharmac y lisinopril 5 mg tablet 5 mg, Oral, Daily, # 90 EA, 0 total refill(s ), Hard Stop Oral (given by mouth) Complet ed 05/29/2024 4 2023 90.0 Ambulat ory Pharmac y lisinopril 5 mg tablet 5 mg, Oral, Daily, # 90 EA, 0 total refill(s ), Hard Stop Oral (given by mouth) Complet ed 08/27/2024 4 2024 90.0 Ambulat ory Pharmac y Omeprazole (Prilosec Eq.) Capsule Conventiona l 40 mg Oral Take or use exactly as directed .Obtain advice for OTCs.Anusha [place] whole. 06/30/2024 [id number] 3 2023 90 [facility] [place] GRIMALDO ([facility]) omeprazole DR 40 mg capsule See Instruct ions, # 90 EA, 0 total refill(s ), Hard Stop Discont inued 03/02/2024 3 2023 90.0 Ambulat ory Pharmac y omeprazole DR 40 mg capsule 40 mg, Oral, Daily, # 90 EA, 1 total refill(s ), Hard Stop Oral (given by mouth) Ordered 08/31/2025 5 2024 90.0 Ambulat ory Pharmac y omeprazole DR 40 mg capsule 40 mg, Oral, Daily, # 90 EA, 0 total refill(s ), Hard Stop Oral (given by mouth) Complet ed 05/29/2024 4 2023 90.0 Ambulat ory Pharmac y omeprazole DR 40 mg capsule 40 mg, Oral, Daily, # 90 EA, 0 total refill(s ), Hard Stop Oral (given by mouth) Complet ed 08/27/2024 4 2024 90.0 Ambulat ory Pharmac y Allergies, Adverse Reactions, Alerts Combined list of allergies from Department of Defense and Veterans Affairs facilities. It does not include entries that were removed or entered in error. Substance Category Reaction Severity Reaction type Status Date Reported Comments Source No Known Allergies Drug allergy (disorder) active 12/08/[address] [place] [address]) Encounters Combined list of: 1) Encounters from [facility] facilities going backup to the last 18 months, not all [place] inpatient encounters are included; 2) Encounters from the [facility] facilities going backup to 280 months. Location Location Details Encounter Type Encounter Number Reason For Visit Attending Provider ADM Date DC Date Status Disposition Source [address] [place] [address])(Fam levi Practice Non-GME FHI1) OUTPATIENT [id number] STOMACH CRAMPS WAKING UP NIGHTS LORENZO MONTEIRO 12/06 Released w/o Limitations [address] [place] [address])(F amily Practic e Non-GME FHI1) [address] [place] [address])(Fam levi Practice Non-GME FHI1) TELE CONSULT [id number] pt wants lab results from SIMEON Shelton 12/[address] [place] [address])(F amily Practic e Non-GME FHI1) [address] [place] [address])(Fam levi Practice Non-GME FHI1) TELE CONSULT [id number] Lab Results SIMEON MONTOYA 12/[address] [place] [address])(F amily Practic e Non-GME FHI1) Procedures Combined list of: 1) Procedures from [facility] facilities going back up to thelast 18 months, not all [place] non-surgical procedures are included; 2) All procedures from the Department [facility] facilities. Procedure Procedure Type Code Date Perfomer [...] Plan No data available for this section 11/23/2024 Ambulatory Pharmacy Functional Status Combined list of recent functional and cognitive assessments recorded at Department of Defense and Veterans Affairs (VA).VA Functional [place] Measurement (FIM) Scale: 1 = Total Assistance (Subject = 0% +), 2 = Maximal Assistance (Subject = 25% +), 3 = Moderate Assistance (Subject = 50% +), 4 = Minimal Assistance (Subject = 75% +), 5 = Supervision, 6 = Modified [place] (Device), 7 = Complete [place] (Timely, Safely). Assessment Date/Time Source Assessment Type Assessment Skill Assessment Score Assessment Details No data available for this section
--- OUTSIDE RECORDS SUMMARY | 2024-11-23 14:21 | XMS_ITS | Data Portability ---
Author Organization [facility] Address [address] [place] [address] Care Team Providers Care Chemist Proteins Name Role Phone TACOS CORREA Primary Care Provider Assessment Encounter Date Assessment Date Assessment LastModified by Organization Details LastModified Time 12/05/2023 12/05/2023 Blood pressure doing well last blood work she says looks fine for cholesterol we will continue current therapy low-fat diet regular exercise and follow-up with me in 6 months [email or web address] Not available 12/05/2023 22:39:06 06/11/2024 06/11/2024 She will continue with her atorvastatin lisinopril and omeprazole mammogram ordered all questions answered her chronic medical problems appear stable follow up 6 months [email or web address] Not available 06/27/2024 21:40:13 Plan of Treatment Reminders Order Date Submit Date Provider Last Modified By Organization Details Last Modified Time Details Appointments ANY 15 2024 09:15A Drew Correa MD Not available Not available Not available Lab CMP, serum or plasma 2023 [facility], [address] [place] [address], [id number], 06/24/2024 12:19:16 CBC w/ auto diff 2023 [facility], [address] [place] [address], [id number], 06/24/2024 12:20:40 lipid panel, serum 2023 [facility], [address] [place] [address], [id number], 06/26/2024 15:46:48 Referral None recorded. Procedures None recorded. Surgeries None recorded. Imaging MAMMO, screening , digital, bilateral 2023 024 [facility] (Mammography) , [address], [place], [address], 11/17/2024 09:31:57 Medication Orders None recorded. Patient TargetsNo targets recorded. Patient Instructions Encounter Date Encounter Id Patient Instructions Last Modified By Organization Details Last Modified Time 06/11/2024 [id number] A healthy lifestyle: care instructions [email or web address] Not available 06/11/2024 21:36:39 Reason for Referral None Reported. Results Created Date Observation Date Name Description Value Unit Range Abnormal Flag Note LastModifiedBy Organization Detail LastModifiedTime 03/26/20 24 03/26/2024 pap, IG + HR HPV HPV negati ve Not Available Not Available 17:12:00 08/03/20 24 08/03/2024 XR, foot No observ ation record ed. [facility] [address] [place], [address], 08/07/2024 10:31:35 08/03/20 24 08/03/2024 XR, foot No observ ation record ed. [facility] [address] [place], [address], 08/07/2024 10:31:11 Result Notes None recorded. Problems Name Problem SNOMED Code Status Onset Date Resolution Date Notes Provider Name and Address Organization Details Recorded Time Hyperlipidemia 70737624 Active 2023 DIONTE Vanegas, SANDY Dumont SIR[facility] 4 11:46:10 Gastroesophage al reflux disease without esophagitis 125503827 Active 2023 DIONTE Vanegas, SANDY Dumont SI[facility] 4 11:46:10 Essential hypertension 89422812 Active 2023 DIONTE Vanegas, SANDY - [facility] 11:46:11 Problem Notes None recorded. Procedures Surgical History Date Name Laterality Status Provider Name and Address Organization Details Recorded Time Eye Surgery completed Suma Ruff [place] - [facility] 12/05/2023 10:48:29 ligation of bilateral fallopian tubes completed Suma Ruff [place] [facility] 12/05/2023 10:48:51 Imaging Results Imaging Date Name Status LastModified by Organiz ation Details LastModified Time 08/03/2024 XR, foot completed [facility] [address] [place], [address], 08/07/2024 10:31:35 08/03/2024 XR, foot completed [facility] [address] [place], [address], 08/07/2024 10:31:11 Procedure Notes None recorded. Medical Equipment None Reported. Allergies No known drug allergies Medications Name Sig Start Date Stop Date Status Note LastModified by Organization Details LastModified Time atorvastati n 40 mg tablet Take 1 tablet every day by oral route. 2024 active Not Available Not Available Not Avai lable atorvastati n 20 mg tablet 02/27 completed Not Available Not Available Not Available azithromyci n 250 mg tablet TAKE 2 TABLETS BY MOUTH FOR 1 DAY THEN TAKE 1 TABLET BY MOUTH DAILY FOR 4 DAYS active Not Available Not Available No t Available benzonatate 200 mg capsule TAKE 1 CAPSULE BY MOUTH EVERY 8 HOURS NEEDED FOR COUGH active Not Available Not Available No t Available Nystop 100,000 unit/gram topical powder APPLY TO THE AFFECTED AREA TWICE DAILY active Not Available Not Available No t Available omeprazole 40 mg capsule,del ayed release Take 1 capsule every day by oral route. 2024 active Not Available Not Available Not Avai lable lisinopril 5 mg tablet Take 1 tablet every day by oral route. 2024 active Not Available Not Available Not Avai lable albuterol sulfate HFA 90 mcg/actuati on aerosol inhaler INHALE 1 TO 2 PUFFS BY MOUTH EVERY 6 HOURS NEEDED active Not Available Not Available No t Available amoxicillin 875 mg-potassiu m clavulanate 125 mg tablet TAKE 1 TABLET BY MOUTH TWICE DAILY FOR 10 DAYS active Not Available Not Available No t Available Vitals Date Recorded Body height Body mass index (BMI) Body weight Heart rate Oxygen saturation Oxygen saturation in Arterial blood by Pulse oximetry Systolic blood pressure Diastolic blood pressure Provider Name and Address Organization Details Last Updated DateTime 164.59 cm 32.6 kg/m2 09986.7 9 g 68 /min 96 % 96 % 124 mm[Hg] 78 mm[Hg] Suma Ruff MA [facility] 10:58:34 Date Recorded Body height Body mass index (BMI) Body weight Heart rate Oxygen saturation Oxygen saturation in Arterial blood by Pulse oximetry Systolic blood pressure Diastolic blood pressure Provider Name and Address Organization Details Last Updated DateTime 164.59 cm 32.8 kg/m2 48326.4 6 g 80 /min 97 % 97 % 122 mm[Hg] 70 mm[Hg] Anna Flannery MA [facility] SI 10:49:32 Social History Question Answer Notes LastModified by Organizat ion Details LastModified Time Tobacco Smoking Status Former Smoker Suma Ruff MA null, [facility] 12/05/2023 10:46:48 Do You Have An Advance Directive? No Information not available 12/05/2023 What Is Your Level Of Alcohol Consumption? None Information not available 12/05/2023 Are You Blind Or Do You Have Difficulty Seeing? Yes Glasses Information not available 12/05/2023 What Is Your Level Of Caffeine Consumption? Moderate Information not available 12/05/2023 In The 14 Days Before Symptom Onset, Have You Had Close Contact With A Laboratory-confir med COVID-19 While That Case Was Ill? No Information not available 12/05/2023 In The 14 Days Before Symptom Onset, Have You Had Close Contact With A Person Who Is Under Investigation For COVID-19 While That Person Was Ill? No Information not available 12/05/2023 Have You Been To An Area Known To Be High Risk For COVID-19? No Information not available 12/05/2023 Are You Currently Employed? No Retired Information not available 12/05/2023 Are You Deaf Or Do You Have Serious Difficulty Hearing? No Information not available 12/05/2023 What Type Of Diet Are You Following? REGULAR Information not available 12/05/2023 Are There Any Guns Present In Your Home? No Information not available 12/05/2023 What Was The Date Of Your Most Recent Tobacco Screening? 06/11/2024 [email or web address] Information not available 06/11/2024 What Is Your Current Pack Years? 10packyears Information not available 12/05/2023 What Is Your Relationship Status? Information not available 12/05/2023 Do You Use Your Seat Belt Or Car Seat Routinely? Yes Information not available 12/05/2023 Do You Have Smoke And Carbon Monoxide Detectors In Your Home? Yes Information not available 12/05/2023 How Much Tobacco Do You Smoke? No Information not available 12/05/2023 Do You Feel Stressed (tense, Restless, Nervous, Or Anxious, Or Unable To Sleep At Night)? [id number] Information not available 12/05/2023 Do You Use Any Illicit Or Recreational Drugs? No Information not available 12/05/2023 Do You Use Sunscreen Routinely? Yes Information not available 12/05/2023 Has Tobacco Cessation Counseling Been Provided? No Information not available 12/05/2023 Do You Or Have You Ever Used Any Other Forms Of Tobacco Or Nicotine? No Information not available 12/05/2023 Sex: Female Functional Status Question Answer Note LastModified by Organizat ion Details LastModified Time Are you able to care for yourself? Yes Information not available 12/05/2023 What is your exercise level? Occasional Information not available 12/05/2023 Mental Status None recorded. Family History Relationship Description Onset Age of this Age Resolved Age Notes LastModified by Organization Details LastModified Time Mother Coronary arterioscler osis mebyma Not available 2023 10:46:00 Mother Heart disease mebyma Not available 2023 10:46:16 Father Diabetes mellitus mebyma Not available 2023 10:46:07 Father Heart disease mebyma Not available 2023 10:46:16 Medical History Condition Response Acid Reflux (GERD) Y High Cholesterol Y Gynecological History Statement/Question Response If Post Menopausal, Age at Menopause 53 Obstetrics History GPAL:G 3 P 0 0 0 3 Type Value Living 3 Total 3 Past Encounters Encounter ID Performer Location Encounter Start Date Encounter Closed Date Diagnosis/Indication Diagnosis SNOMED-CT Code Diagnosis ICD10 Code Diagnosis Note [id number] Tacos Correa MD [facility] [employer] [place] [address] [place] [address] 12/05/2023 10:26:35 12/05/2023 11:45:41 Hyperlipidemia 35660924 E78.5 Gastroesop hageal reflux disease without esophagitis 881461112 K21.9 Essential hypertension 69999037 I10 [id number] Tacos Correa MD [facility] [employer] [place] [address] [place] [address] 06/11/2024 10:38:18 06/11/2024 11:48:16 Body mass index 30+ - obesity 700799869 Z68.32 BMI 32.8 Obesity 074224212 E66.9 Hyperlipidemia 40448679 E78.5 Gastroesop hageal reflux disease without esophagitis 043524808 K21.9 Essential hypertension 09445526 I10 Screening mammography 24 728059 Z12.31 Health Concerns Section Related Observation LastModified by Organization Detai ls LastModified Time None Recorded Concern Status LastModified by Organization Details LastModified Time None Recorded Advance Directives Directive N: Payers Encounter Date Sequence Insurance Name Policy Number Policy Ames Covered Member ID Ames Member ID Guarantor Name 12/05/2023 1 [place] Olinda Martin [id number] Olinda Martin 06/11/2024 1 [place] Olinda Martin [id number] Olinda Martin 06/11/2024 2 FOR LIFE () Olinda Martin [id number] Olinda Martin Notes Date Note Type Note Provider Name and Address Organization Details Recorded Time 12/05/2023 text/html 63-year-old with GERD and hyperlipidemia and hypertension to establish care she has been feeling fine Tacos Correa MD Attn: [address] [facility], [place], [address], [facility] 12/05/2023 22:39:50 06/11/2024 text/html GERD no complain ts taking her medicines fine hypertension blood pressure is controlled and she is asymptomatic dyslipidemia taking her atorvastatin and trying to follow a low-fat diet. Tacos Correa MD Attn: [address] [facility], [place], [address], [facility] 06/27/2024 21:40:36 OBGyn Episode No OBEpisode recorded.
== END 2024-11-23 12:54 | disposition home or self-care (01) ==
PROVIDERS: PCP Internal Medicine; Visit Provider Obstetrics & Gynecology
DX: Z12.31 Encounter for screening mammogram for malignant neoplasm of breast (principal)
CPT/HCPCS: 77063; 77067

== ENCOUNTER 2024-12-08 08:09 | Outpatient (CLI) | payer MEDICARE, OTHER, SELFPAY ==
--- OUTSIDE RECORDS SUMMARY | 2024-12-08 08:18 | XMS_ITS | Data Portability ---
Author Organization [facility] Address [address] [facility] [address] Care Team Providers Care Freezer Laboratory Technician Name Role Phone TACOS CORREA Primary Care Provider Assessment Encounter Date Assessment Date Assessment LastModified by Organization Details LastModified Time 12/05/2023 12/05/2023 Blood pressure doing well last blood work she says looks fine for cholesterol we will continue current therapy low-fat diet regular exercise and follow-up with me in 6 months [email or web address] Not available 12/05/2023 22:39:06 06/11/2024 06/11/2024 She will continue with her atorvastatin lisinopril and omeprazole mammogram ordered all questions answered her chronic medical problems appear stable follow up 6 months [email or web address] Not available 06/27/2024 21:40:13 12/03/2024 12/03/2024 We will continue current therapy dyslipidemia atorvastatin 40 mg GERD omeprazole we tried to deescalate to H2 did not help her symptoms got worse blood pressure lisinopril 5 doing well we can not give her a Prevnar or any pneumococcal vaccinations there are none in the clinic today and we are trying to get her colonoscopy from [place] follow up six-month [email or web address] Not available 12/04/2024 21:32:29 Plan of Treatment Reminders Order Date Submit Date Provider Last Modified By Organization Details Last Modified Time Details Appointments ANY 15 2024 09:15A M Tacos Correa MD Not available Not available Not available Lab lipid panel, serum 2024 0501 025 [email or web address] [facility], [address], [address], 12/03/2024 13:49:22 CBC w/ auto diff [address] [facility], [facility] [address], [address], 12/03/2024 13:49:22 CMP, serum or plasma [address] Lab, [address] [place] [address], [address], 12/03/2024 13:49:22 CMP, serum or plasma 2023 024 [facility], [address] [place] [address], [address], 06/24/2024 12:19:16 CBC w/ auto diff 2023 024 [facility], [address] [place] [address], [address], 06/24/2024 12:20:40 lipid panel, serum 2023 024 [facility], [address] [place] [address], [address], 06/26/2024 15:46:48 Referral None recorded. Procedures None recorded. Surgeries None recorded. Imaging MAMMO, screening , digital, bilateral 2023 024 [facility] (Mammography) , [address], [place], [address], 11/23/2024 16:40:53 Medication Orders None recorded. Patient TargetsNo targets recorded. Patient Instructions Encounter Date Encounter Id Patient Instructions Last Modified By Organization Details Last Modified Time 06/11/2024 [id number] A healthy lifestyle: care instructions [email or web address] Not available 06/11/2024 21:36:39 12/03/2024 [id number] A healthy lifestyle: care instructions Not available 12/03/2024 13:49:22 Reason for Referral None Reported. Results Created Date Observation Date Name Description Value Unit Range Abnormal Flag Note LastModifiedBy Organization Detail LastModifiedTime 03/26/20 24 03/26/2024 pap, IG + HR HPV HPV negati ve Not Available Not Available 17:12:00 08/03/20 24 08/03/2024 XR, foot No observ ation record ed. [facility] [address] [place], [address], 08/07/2024 10:31:35 08/03/20 24 08/03/2024 XR, foot No observ ation record ed. [facility] [address] [place], [address], 08/07/2024 10:31:11 11/24/19 25 11/23/2024 MAMMO , scree bridget, digit al, bilat eral No observ ation record ed. [facility] [address] [place], [address], 11/23/2024 22:30:58 Result Notes None recorded. Problems Name Problem SNOMED Code Status Onset Date Resolution Date Notes Provider Name and Address Organization Details Recorded Time Hyperlipidemia 08232060 Active 2023 DIONTE Vanegas, [place] - [facility] 4 11:46:10 Gastroesophage al reflux disease without esophagitis 622759010 Active 2023 DIONTE [place]egas, [place] - [facility] 4 11:46:10 Essential hypertension 90153206 Active 2023 DIONTE Vanegas, [place] - [facility] 4 11:46:11 Problem Notes None recorded. Procedures Surgical History Date Name Laterality Status Provider Name and Address Organization Details Recorded Time Eye Surgery completed DIONTE Teran - [facility] 12/05/2023 10:48:29 ligation of bilateral fallopian tubes completed DIONTE Teran - [facility]arilyn 12/05/2023 10:48:51 Imaging Results Imaging Date Name Status [facility]Modified by [facility] Details LastModified Time 08/03/2024 XR, foot completed [facility] [address] [place], [address], 08/07/2024 10:31:35 08/03/2024 XR, foot completed [email or web address] [facility] [address] [place], [address], 08/07/2024 10:31:11 11/23/2024 MAMMO, screening, digital, bilateral completed VAL [facility] [address] [place], [address], 11/23/2024 22:30:58 Procedure Notes None recorded. Medical Equipment None [...] and Address Organization Details Last Updated DateTime 4 164.59 cm 32.6 kg/m2 79201.7 9 g 68 /min 96 % 96 % 124 mm[Hg] 78 mm[Hg] Suma Ruff MA [facility] 4 10:58:34 Date Recorded Body height Body mass index (BMI) Body weight Heart rate Oxygen saturation Oxygen saturation in Arterial blood by Pulse oximetry Systolic blood pressure Diastolic blood pressure Provider Name and Address Organization Details Last Updated DateTime 4 164.59 cm 32.8 kg/m2 42639.4 6 g 80 /min 97 % 97 % 122 mm[Hg] 70 mm[Hg] Anna Flannery MA [facility] 4 10:49:32 Date Recorded Body height Body mass index (BMI) Body weight Heart rate Oxygen saturation Oxygen saturation in Arterial blood by Pulse oximetry Systolic blood pressure Diastolic blood pressure Provider Name and Address Organization Details Last Updated DateTime 5 164.59 cm 31.7 kg/m2 14015.1 1 g 77 /min 97 % 97 % 122 mm[Hg] 66 mm[Hg] Suma Ruff MA [facility] 5 10:20:50 Social History Question Answer Notes LastModified by Organizat ion Details LastModified Time Tobacco Smoking Status Former Smoker Suma Ruff MA [facility] 12/05/2023 10:46:48 Do You Have An [...] Date Of Your Most Recent Tobacco Screening? 12/03/2024 Information not available 12/03/2024 What Is Your Current Pack Years? 10packyears [...] Anxious, Or Unable To Sleep At Night)? [id number] Information not available 12/05/2023 Do You Use [...] SNOMED-CT Code Diagnosis ICD10 Code Diagnosis Note [id number] Tacos Correa MD [facility] [facility] [place] [address] [place] [address] 12/05/2023 10:26:35 12/05/2023 11:45:41 Hyperlipidemia 61988222 E78.5 Gastroesop hageal reflux disease without esophagitis 929616110 K21.9 Essential hypertension 30466282 I10 [id number] Tacos Correa MD [facility] [place] [address] [place] [address] 06/11/2024 10:38:18 06/11/2024 11:48:16 Body mass index 30+ - obesity 469250793 Z68.32 BMI 32.8 Obesity 533377230 E66.9 Hyperlipidemia 44150607 E78.5 Gastroesop hageal reflux disease without esophagitis 694377519 K21.9 Essential hypertension 61797453 I10 Screening mammography 24 455373 Z12.31 [id number] Tacos Correa MD [facility] [place] [address] [place] [address] 12/03/2024 09:55:36 12/03/2024 11:10:44 Obesity caused by energy imbalance 671017018 E66.811 E66.09 Z68.31 Obese class I 3937924113 37703 E66.811 Essential hypertension 31123880 I10 Hyperlipidemia 35664200 E78.5 Gastroesop hageal reflux disease without esophagitis 669426304 K21.9 Health Concerns Section Related Observation LastModified by Organization Detai ls LastModified Time None Recorded Concern Status LastModified by Organization Details LastModified Time None Recorded Advance Directives Directive N: Payers Encounter Date Sequence Insurance Name Policy Number Policy Ames Covered Member ID Ames Member ID Guarantor Name 12/05/2023 1 [place] Olinda Martin [id number] Olinda Martin 06/11/2024 1 [place] Olinda Martin [id number] Olinda Martin 06/11/2024 2 FOR LIFE () Olinda Martin [id number] Olinda Martin 12/03/2024 1 [place] Olinda Martin [id number] Olinda Martin 12/03/2024 2 [employer] - FOR LIFE (MEDICARE SUPPLEMENT) Rodney Barry Martin [id number] Olinda Martin Notes Date Note Type Note Provider Name and Address Organization Details Recorded Time 12/05/2023 text/html 63-year-old with GERD and hyperlipidemia and hypertension to establish care she has been feeling fine Tacos Correa MD Attn: [address] [place], [address], [facility] 12/05/2023 22:39:50 06/11/2024 text/html GERD no complain ts taking her medicines fine hypertension blood pressure is controlled and she is asymptomatic dyslipidemia taking her atorvastatin and trying to follow a low-fat diet. Tacos Correa MD Attn: [address] [place], [address], [facility] - [facility] 06/27/2024 21:40:36 12/03/2024 text/html Hypertension controlled feels good dyslipidemia tries to watch her diet GERD no nausea no vomiting Tacos Correa MD Attn: [address] [facility], [place], [address], [facility] 12/04/2024 21:33:17 OBGyn Episode No OBEpisode recorded.
--- OUTSIDE RECORDS SUMMARY | 2024-12-08 08:18 | XMS_ITS | Referral Summary ---
Author Organization [facility] [address] Address [address] [place] [address] Care Team Providers Care Rn Ccu Name Role Phone Tacos Correa MD Primary Care Provider [phone] Allergies No known active allergies Medications lisinopril [...] Treatment Not on file Insurance Care Teams Rn Ccu Relationship Specialty Start Date End Date Tacos Correa MD PCP - General Internal Medicine 01/15/18
--- OUTSIDE RECORDS SUMMARY | 2024-12-08 08:18 | XMS_ITS | Data Portability ---
Author Organization [place] - [id number], Main Office Address [address] [place] [address] Assessment Encounter Date Assessment Date Assessment LastModified by Organization Details LastModified Time 02/13/2023 02/13/2023 Continue current therapy diagnosis discussed she can add Pepcid at night follow-up with me in 6 months if she has more breakthrough pain GERD she will call Not available 02/14/2023 19:33:05 06/19/2023 06/19/2023 Will continue current therapy follow-up 6 months blood work ordered Not available 06/25/2023 17:09:58 Plan of Treatment Reminders Order Date Submit Date Provider Last Modified By Organization Details Last Modified Time Details Appointments None recorded . Lab CMP, serum or plasma 023 06/19/20 [facility] (Lab), [address] [place], [address], 3 15:08:57 lipid panel, serum 023 06/19/20 [facility] (Lab), [address] [place], [address], 3 15:09:08 Referral None recorded . Procedures [...] T3 4.1 pg/mL 2.77-5 .27 Not Available [facility] (Lab) [address] [place], [address], 10/05/2021 12:40:09 10/06/19 22 10/05/2021 T4 FREE free T4 0.89 NG/dL 0.78-2 .19 Not Available [facility] (Lab) [address] [place], [address], 10/05/2021 12:23:49 10/06/19 22 10/05/2021 LIPID PANEL [...] WILL NOT BE REPOR GEORGE. Not Available [facility] (Lab) [address] [place], [address], 10/05/2021 12:05:08 10/06/19 22 10/05/2021 LIPID PANEL cholesterol 189 mg/dL 140-19 9 NIH ALEXANDR NSUS RECOM MENDA TION FOR TODD STERO L: ADULT CHILD LOW RISK: <200 <170 BORDE RLINE : <200- 239 ----- HIGH RISK: >240 >200 Not Available [facility] (Lab) [address] [place], [address], 10/05/2021 12:05:08 10/06/19 22 10/05/2021 LIPID PANEL triglyceride s 204 mg/dL 0-150 high NIH ALEXANDR NSUS REPOR T RECOM MENDA TION FOR TRIGL YCERI VALDEZ: ADULT CHILD LOW RISK: <150 ----- BODER LINE: 150-1 99 ----- HIGH RISK: >200 ----- Not Available [facility] (Lab) [address] [place], [address], 10/05/2021 12:05:08 10/06/19 22 10/05/2021 LIPID PANEL HDL cholesterol 52 mg/dL 40- Not Available [facility] (Lab) [address] [place], [address], 10/05/2021 12:05:08 10/06/19 22 10/05/2021 CBC/C OMPLE TE BLD COUNT W/DIF F white blood cells 7.7 x10'3 /uL 4.2-10 .8 Not Available [facility] (Lab) [address] [place], [address], 10/05/2021 10:11:29 10/06/19 22 10/05/2021 CBC/C OMPLE TE BLD COUNT W/DIF F red blood cells 4.81 x10'6 /uL 3.80-5 .20 Not Available [facility] (Lab) [address] [place], [address], 10/05/2021 10:11:29 10/06/19 22 10/05/2021 CBC/C OMPLE TE BLD COUNT W/DIF F hemoglobin 14.5 g/dL 12.0-1 5.6 Not Available [facility] (Lab) [address] [place], [address], 10/05/2021 10:11:29 10/06/19 22 10/05/2021 CBC/C OMPLE TE BLD COUNT W/DIF F hematocrit 43.8 % 35.7-4 5.7 Not Available [facility] (Lab) [address] [place], [address], 10/05/2021 10:11:29 10/06/19 22 10/05/2021 CBC/C OMPLE TE BLD COUNT W/DIF F mean red cell volume 91.1 fL 82.0-9 9.0 Not Available [facility] (Lab) [address] [place], [address], 10/05/2021 10:11:29 10/06/19 22 10/05/2021 CBC/C OMPLE TE BLD COUNT W/DIF F mean red cell hemoglobin 30.1 pg 27.0-3 3.0 Not Available [facility] (Lab) [address] [place], [address], 10/05/2021 10:11:29 10/06/19 22 10/05/2021 CBC/C OMPLE TE BLD COUNT W/DIF F mean RBC HGB concentratio n 33.1 g/dL 31.0-3 6.0 Not Available [facility] (Lab) [address] [place], [address], 10/05/2021 10:11:29 10/06/19 22 10/05/2021 CBC/C OMPLE TE BLD COUNT W/DIF F red cell distribution width 13.3 % 11.8-1 5.5 Not Available [facility] (Lab) [address] [place], [address], 10/05/2021 10:11:29 10/06/19 22 10/05/2021 CBC/C OMPLE TE BLD COUNT W/DIF F platelets 219 x10'3 /uL 150-40 0 Not Available [facility] (Lab) [address] [place], [address], 10/05/2021 10:11:29 10/06/19 22 10/05/2021 CBC/C OMPLE TE BLD COUNT W/DIF F mean platelet volume 10.2 fL 9.0-12 .4 Not Available [facility] (Lab) [address] [place], [address], 10/05/2021 10:11:29 10/06/19 22 10/05/2021 CBC/C OMPLE TE BLD COUNT W/DIF F neutrophils 57.3 % 39.0-7 2.0 Not Available [facility] (Lab) [address] [place], [address], 10/05/2021 10:11:29 10/06/19 22 10/05/2021 CBC/C OMPLE TE BLD COUNT W/DIF F lymphocytes 28.3 % 16.0-4 7.0 Not Available [facility] (Lab) [address] [place], [address], 10/05/2021 10:11:29 10/06/19 22 10/05/2021 CBC/C OMPLE TE BLD COUNT W/DIF F monocytes 8.1 % 5.0-12 .0 Not Available [facility] (Lab) [address] [place], [address], 10/05/2021 10:11:29 10/06/19 22 10/05/2021 CBC/C OMPLE TE BLD COUNT W/DIF F eosinophils 5.5 % 1.0-7. 0 Not Available [facility] (Lab) [address] [place], [address], 10/05/2021 10:11:29 10/06/19 22 10/05/2021 CBC/C OMPLE TE BLD COUNT W/DIF F basophils 0.4 % 0.0-2. 0 Not Available [facility] (Lab) [address] [place], [address], 10/05/2021 10:11:29 10/06/19 22 10/05/2021 CBC/C OMPLE TE BLD COUNT W/DIF F immature granulocytes 0.4 % 0.00-0 .50 Not Available [facility] (Lab) [address] [place], [address], 10/05/2021 10:11:29 10/06/19 22 10/05/2021 CBC/C OMPLE TE BLD COUNT W/DIF F neutrophils, absolute count 4.41 x10'3 /uL 1.5-8. 0 Not Available [facility] (Lab) [address] [place], [address], 10/05/2021 10:11:29 10/06/19 22 10/05/2021 CBC/C OMPLE TE BLD COUNT W/DIF F lymphocytes, absolute count 2.18 x10'3 /uL 1.07-3 .43 Not Available [facility] (Lab) [address] [place], [address], 10/05/2021 10:11:29 10/06/19 22 10/05/2021 CBC/C OMPLE TE BLD COUNT W/DIF F monocytes, absolute count 0.62 x10'3 /uL 0.29-0 .99 Not Available [facility] (Lab) [address] [place], [address], 10/05/2021 10:11:29 10/06/19 22 10/05/2021 CBC/C OMPLE TE BLD COUNT W/DIF F eosinophils, absolute count 0.42 x10'3 /uL 0.02-0 .53 Not Available [facility] (Lab) [address] [place], [address], 10/05/2021 10:11:29 10/06/19 22 10/05/2021 CBC/C OMPLE TE BLD COUNT W/DIF F basophils, absolute count 0.03 x10'3 /uL 0.01-0 .08 Not Available [facility] (Lab) [address] [place], [address], 10/05/2021 10:11:29 10/06/19 22 10/05/2021 CBC/C OMPLE TE BLD COUNT W/DIF F immature granulocytes ,absolute 0.03 x10'3 /uL 0.00-0 .05 Not Available [facility] (Lab) [address] [place], [address], 10/05/2021 10:11:29 10/06/19 22 10/05/2021 CBC/C OMPLE TE BLD COUNT W/DIF F nucleated red blood cells 0.0 % -0 Not Available [facility] (Lab) [address] [place], [address], 10/05/2021 10:11:29 10/06/19 22 10/05/2021 CBC/C OMPLE TE BLD COUNT W/DIF F NRBC# 0.00 x10'3 /uL Not Available [facility] (Lab) [address] [place], [address], 10/05/2021 10:11:29 10/06/19 22 10/05/2021 TSH thyroid-stim ulating hormone 2.730 uIU/m L 0.465- 4.680 Not Available [facility] (Lab) [address] [place], [address], 10/05/2021 12:31:18 10/06/19 22 10/05/2021 MAGNE SIUM magnesium 2.1 mg/dL 1.6-2. 3 Not Available [facility] (Lab) [address] [place], [address], 10/05/2021 12:05:12 10/06/19 22 10/05/2021 COMPR EHENS SELVIN METAB OLIC PANEL sodium 143 mmol/ L 137-14 5 Not Available [facility] (Lab) [address] [place], [address], 10/05/2021 12:04:59 10/06/19 22 10/05/2021 COMPR EHENS SELVIN METAB OLIC PANEL potassium 4.4 mmol/ L 3.5-5. 1 Not Available [facility] (Lab) [address] [place], [address], 10/05/2021 12:04:59 10/06/19 22 10/05/2021 COMPR EHENS SELVIN METAB OLIC PANEL chloride 108 mmol/ L 98-107 high Not Available [facility] (Lab) [address] [place], [address], 10/05/2021 12:04:59 10/06/19 22 10/05/2021 COMPR EHENS SELVIN METAB OLIC PANEL carbon dioxide 29 mmol/ L 22-30 Not Available [facility] (Lab) [address] [place], [address], 10/05/2021 12:04:59 10/06/19 22 10/05/2021 COMPR EHENS SELVIN METAB OLIC PANEL agap 10.4 mmol/ L 14-22 low Not Available [facility] (Lab) [address] [place], [address], 10/05/2021 12:04:59 10/06/19 22 10/05/2021 COMPR EHENS SELVIN METAB OLIC PANEL glucose 84 mg/dL 70-99 Not Available [facility] (Lab) [address] [place], [address], 10/05/2021 12:04:59 10/06/19 22 10/05/2021 COMPR EHENS SELVIN METAB OLIC PANEL BUN 11 mg/dL 8-19 Not Available [facility] (Lab) [address] [place], [address], 10/05/2021 12:04:59 10/06/19 22 10/05/2021 COMPR EHENS SELVIN METAB OLIC PANEL creatinine 0.81 mg/dL 0.66-1 .25 Not Available [facility] (Lab) [address] [place], [address], 10/05/2021 12:04:59 10/06/19 22 10/05/2021 COMPR EHENS SELVIN METAB OLIC PANEL bilirubin, total 0.30 mg/dL 0.20-1 .30 Not Available [facility] (Lab) [address] [place], [address], 10/05/2021 12:04:59 10/06/19 22 10/05/2021 COMPR EHENS SELVIN METAB OLIC PANEL GFR >60 Refer ence Range : [place] ge GFR Healt hy Adult : >60 [...] calcu lator is avail able on the [facility] websi te: [email or web address] :[email or web address] [email or web address]/kdo qi/gf r_cal culat or Not Available [facility] (Lab) [address] [place], [address], 10/05/2021 12:04:59 10/06/19 22 10/05/2021 COMPR EHENS SELVIN METAB OLIC PANEL alkaline phosphatase 76 U/L 38-126 Not Available [facility] (Lab) [address] [place], [address], 10/05/2021 12:04:59 10/06/19 22 10/05/2021 COMPR EHENS SELVIN METAB OLIC PANEL alanine aminotransfe rase 26 U/L 0-35 Not Available [facility] (Lab) [address] [place], [address], 10/05/2021 12:04:59 10/06/19 22 10/05/2021 COMPR EHENS SELVIN METAB OLIC PANEL aspartate aminotransfe rase 24 U/L 15-37 Not Available [facility] (Lab) [address] [place], [address], 10/05/2021 12:04:59 10/06/19 22 10/05/2021 COMPR EHENS SELVIN METAB OLIC PANEL calcium 9.7 mg/dL 8.4-10 .2 Not Available [facility] (Lab) [address] [place], [address], 10/05/2021 12:04:59 10/06/19 22 10/05/2021 COMPR EHENS SELVIN METAB OLIC PANEL total protein 6.8 g/dL 6.3-8. 2 Not Available [facility] (Lab) [address] [place], [address], 10/05/2021 12:04:59 10/06/19 22 10/05/2021 COMPR EHENS SELVIN METAB OLIC PANEL albumin 4.1 g/dL 3.0-4. 4 Not Available [facility] (Lab) [address] [place], [address], 10/05/2021 12:04:59 10/06/19 22 10/05/2021 COMPR EHENS SELVIN METAB OLIC PANEL globulin 2.7 g/dL 2.6-4. 2 Not Available [facility] (Lab) [address] [place], [address], 10/05/2021 12:04:59 10/06/19 22 10/05/2021 COMPR EHENS SELVIN METAB OLIC PANEL A/G ratio 1.5 ratio 1.0-2. 0 Not Available [facility] (Lab) [address] [place], [address], 10/05/2021 12:04:59 10/06/1910/05/2021 BNP/B -NATR IURET IC PEPTI DE BNP 59 pg/mL 4-125 Not Available [facility] (Lab) [address] [place], [address], 10/05/2021 10:47:46 08/15/19 23 08/15/2022 CBC/C OMPLE TE BLD COUNT W/DIF F mean RBC HGB concentratio n 33.2 g/dL 31.0-3 6.0 Not Available [facility] (Lab) [address] [place], [address], 08/15/2022 13:19:12 08/15/19 23 08/15/2022 CBC/C OMPLE TE BLD COUNT W/DIF F white blood cells 8.3 x10'3 /uL 4.2-10 .8 Not Available [facility] (Lab) [address] [place], [address], 08/15/2022 13:19:12 08/15/19 23 08/15/2022 CBC/C OMPLE TE BLD COUNT W/DIF F red blood cells 5.03 x10'6 /uL 3.80-5 .20 Not Available [facility] (Lab) [address] [place], [address], 08/15/2022 13:19:12 08/15/19 23 08/15/2022 CBC/C OMPLE TE BLD COUNT W/DIF F hemoglobin 15.2 g/dL 12.0-1 5.6 Not Available [facility] (Lab) [address] [place], [address], 08/15/2022 13:19:12 08/15/19 23 08/15/2022 CBC/C OMPLE TE BLD COUNT W/DIF F hematocrit 45.8 % 35.7-4 5.7 high Not Available [facility] (Lab) [address] [place], [address], 08/15/2022 13:19:12 08/15/19 23 08/15/2022 CBC/C OMPLE TE BLD COUNT W/DIF F mean red cell volume 91.1 fL 82.0-9 9.0 Not Available [facility] (Lab) [address] [place], [address], 08/15/2022 13:19:12 08/15/19 23 08/15/2022 CBC/C OMPLE TE BLD COUNT W/DIF F mean red cell hemoglobin 30.2 pg 27.0-3 3.0 Not Available [facility] (Lab) [address] [facility] [place], [address], 08/15/2022 13:19:12 08/15/19 23 08/15/2022 CBC/C OMPLE TE BLD COUNT W/DIF F red cell distribution width 13.1 % 11.8-1 5.5 Not Available [facility] (Lab) [address] [place], [address], 08/15/2022 13:19:12 08/15/19 23 08/15/2022 CBC/C OMPLE TE BLD COUNT W/DIF F platelets 232 x10'3 /uL 150-40 0 Not Available [facility] (Lab) [address] [place], [address], 08/15/2022 13:19:12 08/15/1908/15/2022 CBC/C OMPLE TE BLD COUNT W/DIF F mean platelet volume 11.0 fL 9.0-12 .4 Not Available [facility] (Lab) [address] [place], [address], 08/15/2022 13:19:12 08/15/19 23 08/15/2022 CBC/C OMPLE TE BLD COUNT W/DIF F neutrophils 62.2 % 39.0-7 2.0 Not Available [facility] (Lab) [address] [place], [address], 08/15/2022 13:19:12 08/15/19 23 08/15/2022 CBC/C OMPLE TE BLD COUNT W/DIF F lymphocytes 27.1 % 16.0-4 7.0 Not Available [facility] (Lab) [address] [place], [address], 08/15/2022 13:19:12 08/15/19 23 08/15/2022 CBC/C OMPLE TE BLD COUNT W/DIF F monocytes 5.7 % 5.0-12 .0 Not Available [facility] (Lab) [address] [place], [address], 08/15/2022 13:19:12 08/15/19 23 08/15/2022 CBC/C OMPLE TE BLD COUNT W/DIF F eosinophils 4.2 % 1.0-7. 0 Not Available [facility] (Lab) [address] [place], [address], 08/15/2022 13:19:12 08/15/19 23 08/15/2022 CBC/C OMPLE TE BLD COUNT W/DIF F basophils 0.4 % 0.0-2. 0 Not Available [facility] (Lab) [address] [place], [address], 08/15/2022 13:19:12 08/15/19 23 08/15/2022 CBC/C OMPLE TE BLD COUNT W/DIF F immature granulocytes 0.4 % 0.00-0 .50 Not Available [facility] (Lab) [address] [place], [address], 08/15/2022 13:19:12 08/15/19 23 08/15/2022 CBC/C OMPLE TE BLD COUNT W/DIF F neutrophils, absolute count 5.16 x10'3 /uL 1.5-8. 0 Not Available [facility] (Lab) [address] [place], [address], 08/15/2022 13:19:12 08/15/19 23 08/15/2022 CBC/C OMPLE TE BLD COUNT W/DIF F lymphocytes, absolute count 2.24 x10'3 /uL 1.07-3 .43 Not Available [facility] (Lab) [address] [place], [address], 08/15/2022 13:19:12 08/15/19 23 08/15/2022 CBC/C OMPLE TE BLD COUNT W/DIF F monocytes, absolute count 0.47 x10'3 /uL 0.29-0 .99 Not Available [facility] (Lab) [address] [place], [address], 08/15/2022 13:19:12 08/15/19 23 08/15/2022 CBC/C OMPLE TE BLD COUNT W/DIF F eosinophils, absolute count 0.35 x10'3 /uL 0.02-0 .53 Not Available [facility] (Lab) [address] [place], [address], 08/15/2022 13:19:12 08/15/1908/15/2022 CBC/C OMPLE TE BLD COUNT W/DIF F basophils, absolute count 0.03 x10'3 /uL 0.01-0 .08 Not Available [facility] (Lab) [address] [place], [address], 08/15/2022 13:19:12 08/15/19 23 08/15/2022 CBC/C OMPLE TE BLD COUNT W/DIF F immature granulocytes ,absolute 0.03 x10'3 /uL 0.00-0 .05 Not Available [facility] (Lab) [address] [place], [address], 08/15/2022 13:19:12 08/15/19 23 08/15/2022 CBC/C OMPLE TE BLD COUNT W/DIF F nucleated red blood cells 0.0 % -0 Not Available [facility] (Lab) [address] [place], [address], 08/15/2022 13:19:12 08/15/19 23 08/15/2022 CBC/C OMPLE TE BLD COUNT W/DIF F NRBC# 0.00 x10'3 /uL Not Available [facility] (Lab) [address] [place], [address], 08/15/2022 13:19:12 08/15/19 23 08/15/2022 LIPID PANEL [...] WILL NOT BE REPOR GEORGE. Not Available [facility] (Lab) [address] [place], [address], 08/15/2022 13:54:31 08/15/19 23 08/15/2022 LIPID PANEL cholesterol 203 mg/dL 140-19 9 high NIH ALEXANDR NSUS RECOM MENDA TION FOR TODD STERO L: ADULT CHILD LOW RISK: <200 <170 BORDE RLINE : <200- 239 ----- HIGH RISK: >240 >200 Not Available [facility] (Lab) [address] [place], [address], 08/15/2022 13:54:31 08/15/1908/15/2022 LIPID PANEL triglyceride s 222 mg/dL 0-150 high NIH ALEXANDR NSUS REPOR T RECOM MENDA TION FOR TRIGL YCERI VALDEZ: ADULT CHILD LOW RISK: <150 ----- BODER LINE: 150-1 99 ----- HIGH RISK: >200 ----- Not Available [facility] (Lab) [address] [facility] [place] [place], [address], 08/15/2022 13:54:31 08/15/19 23 08/15/2022 LIPID PANEL HDL cholesterol 56 mg/dL 40- Not Available [facility] (Lab) [address] [facility] [place], [address], 08/15/2022 13:54:31 08/15/19 23 08/15/2022 COMPR EHENS SELVIN METAB OLIC PANEL carbon dioxide 27 mmol/ L 22-30 Not Available [facility] (Lab) [address] [place], [address], 08/15/2022 13:54:26 08/15/19 23 08/15/2022 COMPR EHENS SELVIN METAB OLIC PANEL sodium 142 mmol/ L 137-14 5 Not Available [facility] (Lab) [address] [place], [address], 08/15/2022 13:54:26 08/15/19 23 08/15/2022 COMPR EHENS SELVIN METAB OLIC PANEL potassium 4.8 mmol/ L 3.5-5. 1 Not Available [facility] (Lab) [address] [place], [address], 08/15/2022 13:54:26 08/15/19 23 08/15/2022 COMPR EHENS SELVIN METAB OLIC PANEL chloride 108 mmol/ L 98-107 high Not Available [facility] (Lab) [address] [place], [address], 08/15/2022 13:54:26 08/15/19 23 08/15/2022 COMPR EHENS SELVIN METAB OLIC PANEL anion gap 11.8 mmol/ L 14-22 low Not Available [facility] (Lab) [address] [place], [address], 08/15/2022 13:54:26 08/15/19 23 08/15/2022 COMPR EHENS SELVIN METAB OLIC PANEL glucose 96 mg/dL 70-99 Not Available [facility] (Lab) [address] [place], [address], 08/15/2022 13:54:26 08/15/19 23 08/15/2022 COMPR EHENS SELVIN METAB OLIC PANEL BUN 14 mg/dL 8-19 Not Available [facility] (Lab) [address] [place], [address], 08/15/2022 13:54:26 08/15/19 23 08/15/2022 COMPR EHENS SELVIN METAB OLIC PANEL creatinine 0.84 mg/dL 0.66-1 .25 Not Available [facility] (Lab) [address] [place], [address], 08/15/2022 13:54:26 08/15/19 23 08/15/2022 COMPR EHENS SELVIN METAB OLIC PANEL GFR >60 Refer ence Range : [place] ge GFR Healt hy Adult : >60 [...] or ethni c subgr oups, such as Hisny nics. Outsi de the valid ated alyssia [...] calcu lator is avail able on the [facility] websi te: [email or web address] :[email or web address]/kdo qi/gf r_cal culat or Not Available [facility] (Lab) [address] [place], [address], 08/15/2022 13:54:26 08/15/19 23 08/15/2022 COMPR EHENS SELVIN METAB OLIC PANEL alkaline phosphatase 80 U/L 38-126 Not Available [facility] (Lab) [address] [place], [address], 08/15/2022 13:54:26 08/15/19 23 08/15/2022 COMPR EHENS SELVIN METAB OLIC PANEL alanine aminotransfe rase 26 U/L 0-35 Not Available [facility] (Lab) [address] [place], [address], 08/15/2022 13:54:26 08/15/19 23 08/15/2022 COMPR EHENS SELVIN METAB OLIC PANEL aspartate aminotransfe rase 22 U/L 15-37 Not Available [facility] (Lab) [address] [place], [address], 08/15/2022 13:54:26 08/15/19 23 08/15/2022 COMPR EHENS SELVIN METAB OLIC PANEL bilirubin, total 0.50 mg/dL 0.20-1 .30 Not Available [facility] (Lab) [address] [place], [address], 08/15/2022 13:54:26 08/15/19 23 08/15/2022 COMPR EHENS SELVIN METAB OLIC PANEL calcium 9.7 mg/dL 8.4-10 .2 Not Available [facility] (Lab) [address] [place], [address], 08/15/2022 13:54:26 08/15/19 23 08/15/2022 COMPR EHENS SELVIN METAB OLIC PANEL total protein 6.7 g/dL 6.3-8. 2 Not Available [facility] (Lab) [address] [place], [address], 08/15/2022 13:54:26 08/15/19 23 08/15/2022 COMPR EHENS SELVIN METAB OLIC PANEL albumin 4.2 g/dL 3.0-4. 4 Not Available [facility] (Lab) [address] [place], [address], 08/15/2022 13:54:26 08/15/19 23 08/15/2022 COMPR EHENS SELVIN METAB OLIC PANEL globulin 2.5 g/dL 2.6-4. 2 low Not Available [facility] (Lab) [address] [place], [address], 08/15/2022 13:54:26 08/15/19 23 08/15/2022 COMPR EHENS SELVIN METAB OLIC PANEL A/G ratio 1.7 ratio 1.0-2. 0 Not Available [facility] (Lab) [address] [place], [address], 08/15/2022 13:54:26 08/15/19 23 08/15/2022 URINA LYSIS COMPL ETE/I RIS W/RFX nitrite negati ve negati ve- Not Available [facility] (Lab) [address] [place], [address], 08/15/2022 13:33:50 08/15/19 23 08/15/2022 URINA LYSIS COMPL ETE/I RIS W/RFX color light- yellow Not Available [facility] (Lab) [address] [place], [address], 08/15/2022 13:33:50 08/15/19 23 08/15/2022 URINA LYSIS COMPL ETE/I RIS W/RFX appear clear Not Available [facility] (Lab) [address] [place], [address], 08/15/2022 13:33:50 08/15/19 23 08/15/2022 URINA LYSIS COMPL ETE/I RIS W/RFX specific gravity 1.007 1.001- 1.030 Not Available [facility] (Lab) [address] [place], [address], 08/15/2022 13:33:50 08/15/19 23 08/15/2022 URINA LYSIS COMPL ETE/I RIS W/RFX pH 7.0 pH_un its 5.0-9. 0 Not Available [facility] (Lab) [address] [facility] [place], [address], 08/15/2022 13:33:50 08/15/19 23 08/15/2022 URINA LYSIS COMPL ETE/I RIS W/RFX leukocytes negati ve jose juan/u L negati ve- Not Available [facility] (Lab) [address] [place], [address], 08/15/2022 13:33:50 08/15/19 23 08/15/2022 URINA LYSIS COMPL ETE/I RIS W/RFX protein negati ve mg/dL negati ve- Not Available [facility] (Lab) [address] [place], [address], 08/15/2022 13:33:50 08/15/19 23 08/15/2022 URINA LYSIS COMPL ETE/I RIS W/RFX glucose normal mg/dL normal - Not Available [facility] (Lab) [address] [place], [address], 08/15/2022 13:33:50 08/15/19 23 08/15/2022 URINA LYSIS COMPL ETE/I RIS W/RFX ketones negati ve mg/dL negati ve- Not Available [facility] (Lab) [address] [place], [address], 08/15/2022 13:33:50 08/15/19 23 08/15/2022 URINA LYSIS COMPL ETE/I RIS W/RFX urobilinogen normal mg/dL normal - Not Available [facility] (Lab) [address] [place], [address], 08/15/2022 13:33:50 08/15/19 23 08/15/2022 URINA LYSIS COMPL ETE/I RIS W/RFX bilirubin negati ve mg/dL negati ve- Not Available [facility] (Lab) [address] [facility] [place], [address], 08/15/2022 13:33:50 08/15/19 23 08/15/2022 URINA LYSIS COMPL ETE/I RIS W/RFX blood negati ve mg/dL negati ve- Not Available [facility] (Lab) [address] [place], [address], 08/15/2022 13:33:50 08/15/19 23 08/15/2022 URINA LYSIS COMPL ETE/I RIS W/RFX white blood cells 0-8 /i??h pfi?? 0-8 Not Available [facility] (Lab) [address] [place], [address], 08/15/2022 13:33:50 08/15/19 23 08/15/2022 URINA LYSIS COMPL ETE/I RIS W/RFX red blood cells 0-4 /i??h pfi?? 0-4 Not Available [facility] (Lab) [address] [place], [address], 08/15/2022 13:33:50 08/15/19 23 08/15/2022 URINA LYSIS COMPL ETE/I RIS W/RFX bacteria occasi onal abnormal Not Available [facility] (Lab) [address] [place], [address], 08/15/2022 13:33:50 08/15/19 23 08/15/2022 URINA LYSIS COMPL ETE/I RIS W/RFX squamous epithelial packed field /i??l pfi?? abnormal Not Available [facility] (Lab) [address] [place], [address], 08/15/2022 13:33:50 06/19/20 23 06/19/2023 COMPR EHENS SELVIN METAB OLIC PANEL sodium 141 mmol/ L 137-14 5 Not Available [facility] (Lab) [address] [place], [address], 06/19/2023 15:08:57 06/19/2006/19/2023 COMPR EHENS SELVIN METAB OLIC PANEL potassium 4.2 mmol/ L 3.5-5. 1 Not Available [facility] (Lab) [address] [place], [address], 06/19/2023 15:08:57 06/19/20 23 06/19/2023 COMPR EHENS SELVIN METAB OLIC PANEL chloride 107 mmol/ L 98-107 Not Available [facility] (Lab) [address] [place], [address], 06/19/2023 15:08:57 06/19/20 23 06/19/2023 COMPR EHENS SELVIN METAB OLIC PANEL carbon dioxide 27 mmol/ L 22-30 Not Available [facility] (Lab) [address] [place], [address], 06/19/2023 15:08:57 06/19/20 23 06/19/2023 COMPR EHENS SELVIN METAB OLIC PANEL anion gap 11.2 mmol/ L 14-22 low Not Available [facility] (Lab) [address] [place], [address], 06/19/2023 15:08:57 06/19/20 23 06/19/2023 COMPR EHENS SELVIN METAB OLIC PANEL glucose 107 mg/dL 70-99 high Not Available [facility] (Lab) [address] [place], [address], 06/19/2023 15:08:57 06/19/20 23 06/19/2023 COMPR EHENS SELVIN METAB OLIC PANEL BUN 11 mg/dL 8-19 Not Available [facility] (Lab) [address] [place], [address], 06/19/2023 15:08:57 06/19/20 23 06/19/2023 COMPR EHENS SELVIN METAB OLIC PANEL creatinine 0.78 mg/dL 0.66-1 .25 Not Available [facility] (Lab) [address] [place], [address], 06/19/2023 15:08:57 06/19/20 23 06/19/2023 COMPR EHENS SELVIN METAB OLIC PANEL GFR >60 Refer ence Range : [place] ge GFR Healt hy Adult : >60 [...] or ethni c subgr oups, such as [facility] nics. Outsi de the valid ated alyssia [...] calcu lator is avail able on the [facility] websi te: [email or web address] :[email or web address]/pr ofess ional s/kdo qi/gf r_cal culat or Not Available [facility] (Lab) [address] [place], [address], 06/19/2023 15:08:57 06/19/20 23 06/19/2023 COMPR EHENS SELVIN METAB OLIC PANEL alkaline phosphatase 79 U/L 38-126 Not Available [facility] (Lab) [address] [place], [address], 06/19/2023 15:08:57 06/19/20 23 06/19/2023 COMPR EHENS SELVIN METAB OLIC PANEL alanine aminotransfe rase 27 U/L 0-35 Not Available [facility] (Lab) [address] [place], [address], 06/19/2023 15:08:57 06/19/20 23 06/19/2023 COMPR EHENS SELVIN METAB OLIC PANEL aspartate aminotransfe rase 36 U/L 15-37 Not Available [facility] (Lab) [address] [facility] [place], [address], 06/19/2023 15:08:57 06/19/20 23 06/19/2023 COMPR EHENS SELVIN METAB OLIC PANEL bilirubin, total 0.50 mg/dL 0.20-1 .30 Not Available [facility] (Lab) [address] [place], [address], 06/19/2023 15:08:57 06/19/20 23 06/19/2023 COMPR EHENS SELVIN METAB OLIC PANEL calcium 9.8 mg/dL 8.4-10 .2 Not Available [facility] (Lab) [address] [place], [address], 06/19/2023 15:08:57 06/19/20 23 06/19/2023 COMPR EHENS SELVIN METAB OLIC PANEL total protein 7.3 g/dL 6.3-8. 2 Not Available [facility] (Lab) [address] [place], [address], 06/19/2023 15:08:57 06/19/20 23 06/19/2023 COMPR EHENS SELVIN METAB OLIC PANEL albumin 4.2 g/dL 3.0-4. 4 Not Available [facility] (Lab) [address] [place], [address], 06/19/2023 15:08:57 06/19/20 23 06/19/2023 COMPR EHENS SELVIN METAB OLIC PANEL globulin 3.1 g/dL 2.6-4. 2 Not Available [facility] (Lab) [address] [place], [address], 06/19/2023 15:08:57 06/19/20 23 06/19/2023 COMPR EHENS SELVIN METAB OLIC PANEL A/G ratio 1.4 ratio 1.0-2. 0 Not Available [facility] (Lab) [address] [place], [address], 06/19/2023 15:08:57 06/19/20 23 06/19/2023 LIPID PANEL cholesterol 215 mg/dL 140-19 9 high NIH ALEXANDR NSUS RECOM MENDA TION FOR TODD STERO L: ADULT CHILD LOW RISK: <200 <170 BORDE RLINE : <200- 239 ----- HIGH RISK: >240 >200 Not Available [facility] (Lab) [address] [place], [address], 06/19/2023 15:09:08 06/19/2006/19/2023 LIPID PANEL triglyceride s 225 mg/dL 0-150 high NIH ALEXANDR NSUS REPOR T RECOM MENDA TION FOR TRIGL YCERI VALDEZ: ADULT CHILD LOW RISK: <150 ----- BODER LINE: 150-1 99 ----- HIGH RISK: >200 ----- Not Available [facility] (Lab) [address] [place], [address], 06/19/2023 15:09:08 06/19/20 23 06/19/2023 LIPID PANEL HDL cholesterol 47 mg/dL 40- Not Available [facility] (Lab) [address] [place], [address], 06/19/2023 15:09:08 06/19/20 23 06/19/2023 LIPID PANEL [...] WILL NOT BE REPOR GEORGE. Not Available [facility] (Lab) [address] [place], [address], 06/19/2023 15:09:08 10/06/19 22 10/05/2021 XR, chest , 2 view [facility] [address] [place] [address] [phone] Patien t Name: ISIS MARTIN Access ion #: [id number] Sex: F : 1959 1 Locati [...] 2 view chest. Page 1 of 2 [facility] michael Name: ISIS MARTIN Access ion #: [id number] Sex: F : 1959 1 Exam Date: 10/06/19 8:44 AM Exam Name: XR CHEST 2V Admitt ing Diagno sis(es ): Create d and electr onical ly signed by: Samm roy MD Signed Date: 10/06/19 10:55 AM (CT) Dictat ed by: Samm roy MD (CT) (CT) Page 2 of 2 MIGRATION.[id number] [facility] (Imaging) [address] [place], [address], 10/03/2022 06:08:38 10/26/19 22 10/05/2021 , echoc ardio gram No observ ation record ed. [id number] [facility] (One Call Scheduling) [address] [place], [address], 10/03/2022 06:08:38 Result Notes None recorded. Problems Name Problem SNOMED Code Status Onset Date Resolution Date Notes Provider Name and Address Organization Details Recorded Time Benign essential hypertension 6723617 Active Not Available [facility] 3 05:37:14 Pain in throat 917529525 Active 2021 Not Available [facility] 3 05:37:14 Insomnia 466713829 Active Not Available [facility] 3 05:37:14 Abdominal pain 82274203 Active Not Available [facility] 3 05:37:14 Venous insufficiency of leg 225419122 Active 2021 Not Available [facility] 3 05:37:14 Gastroesophag eal reflux disease 792586452 Active Not Available [facility] 3 05:37:14 Dyspnea 609896302 Active 2021 Not Available [facility] 3 05:37:14 Pure hypercholeste rolemia 803519076 Active Not Available [facility] 3 05:37:14 Malaise and fatigue 523556960 Active Not Available [facility] 3 05:37:14 Pain in calf 562766825 Active Not Available [facility] 3 05:37:14 Vitamin D deficiency 67641536 Active Not Available [facility] 3 05:37:14 Disorder of vitamin D 474755519 Active Not Available [facility] 3 05:37:14 Eosinophil count above reference range 883426564 Active Not Available [facility] 3 05:37:14 Anxiety 65233859 Active Not Available [facility] 3 05:37:14 Dysuria 26837156 Active 2022 Not Available [facility] 3 05:37:14 Upper respiratory infection 51404064 Active 2021 Not Available [facility] 3 05:37:14 Rhinitis 36582081 Active Not Available [facility] 3 05:37:14 Skin lesion 90417383 Active 2022 Not Available [facility] 3 05:37:14 Cough 26585789 Active 2023 LUCHO Vaneg[place], [place] - [facility] 4 16:02:44 Problem Notes None recorded. Procedures Surgical History None recorded. Imaging Results Imaging Date Name Status LastModified by Organization Details LastModified Time 10/05/2021 XR, chest, 2 view completed MIGRATION. [id number] [facility] (Imaging) [address] [place], [address], 10/03/2022 06:08:38 10/05/2021 US, echocardiogram completed MIGRATION .[id number] [facility] (One Call Scheduling) [address] [place], [address], 10/03/2022 06:08:38 Procedure Notes None recorded. Medical [...] azelastine 137 mcg (0.1 %) nasal spray [place] 2 sprays every day by intranasa l [...] completed Not Available Not Available Not Available Kelley 08/25 completed Not Available Not Available Not [...] kg/m2 163.83 cm 78 /min 97 [degF] 68930.9 9 g 108 mm[Hg] 66 mm[Hg] Not Available [facility] 3 05:59:35 Date Recorded Body mass index (BMI) Body height Heart rate Body temperature Body weight Systolic blood pressure Diastolic blood pressure Provider Name and Address Organization Details Last Updated DateTime 2 35 kg/m2 163.83 cm 74 /min 96.8 [degF] 09722.6 2 g 124 mm[Hg] 70 mm[Hg] Not Available [facility] 3 05:59:35 Date Recorded Body mass index (BMI) Body height Heart rate Body temperature Body weight Systolic blood pressure Diastolic blood pressure Provider Name and Address Organization Details Last Updated DateTime 3 33.6 kg/m2 163.83 cm 70 /min 97.9 [degF] 58915.8 8 g 130 mm[Hg] 80 mm[Hg] Not Available [facility] 3 05:59:36 Date Recorded Body height Body mass index (BMI) Body weight Body temperature Heart rate Systolic blood pressure Diastolic blood pressure Provider Name and Address Organization Details Last Updated DateTime 3 163.83 cm 33.8 kg/m2 52211.4 7 g 97.6 [degF] 81 /min 124 mm[Hg] 70 mm[Hg] Leslie bergman RN [place] [facility] 3 10:06:24 Date Recorded Body height Body mass index (BMI) Body weight Body temperature Heart rate Systolic blood pressure Diastolic blood pressure Provider Name and Address Organization Details Last Updated DateTime 3 163.83 cm 33.5 kg/m2 66992.2 9 g 97.6 [degF] 74 /min 116 mm[Hg] 80 mm[Hg] LUCHO Bryant [place] [facility] 3 10:10:38 Social History Question Answer Notes LastModified by Organization Details LastModified Time Tobacco Smoking Status Former Smoker quit 1992 Not Available [facility] 10/03/2022 05:54:51 Do You Have An Advance Directive? No MIGRATION.030 [id number] Information not available 10/03/2022 What Is Your Level Of Alcohol Consumption? None MIGRATION.030 [id number] Information not available 10/03/2022 What Is Your Level Of Caffeine Consumption? Moderate MIGRATION.030 972448 Information not available 10/03/2022 In The 14 Days Before Symptom Onset, Have You Had Close Contact With A Laboratory-confi rmed COVID-19 While That Case Was Ill? No MIGRATION.030 231381 Information not available 10/03/2022 In The 14 Days Before Symptom Onset, Have You Had Close Contact With A Person Who Is Under Investigation For COVID-19 While That Person Was Ill? No MIGRATION.030 803312 Information not available 10/03/2022 What Type Of Diet Are You Following? REGULAR MIGRATION.030 186029 Information not available 10/03/2022 What Is The Highest Grade Or Level Of School You Have Completed Or The Highest Degree You Have Received? 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 No MIGRATION.0301 829323 Information not available 10/03/2022 What Is The Fluoride Status Of Your Home? Unknown MIGRATION.030 430699 Information not available 10/03/2022 When Did You Quit Smoking? 14+yearssincelastci ana MIGRATION.030 397713 Information not available 10/03/2022 Do You Use Insect Repellent Routinely? No MIGRATION.0301 677997 Information not available 10/03/2022 Where Do You Live? [place]House MIGRATION.030 852586 Information not available 10/03/2022 Do You Have A Medical Power Of Ap Operator? No MIGRATION.0301 527334 Information not available 10/03/2022 What Was The Date Of Your Most Recent Tobacco Screening? 06/19/2023 [email or web address] Information not available 06/19/2023 Do You Have Any Pets? Yes MIGRATION.0301 935889 Information not available 10/03/2022 What Is Your Relationship Status? MIGRATION.0301 693387 Information not available 10/03/2022 Do You Use Your Seat Belt Or Car Seat Routinely? Yes MIGRATION.0301 259221 Information not available 10/03/2022 Do You Have Smoke And Carbon Monoxide Detectors In Your Home? Yes MIGRATION.0301 409321 Information not available 10/03/2022 Are You Passively Exposed To Smoke? No MIGRATION.0301 737705 Information not available 10/03/2022 Are There Any Smokers In Your House? No MIGRATION.0301 608719 Information not available 10/03/2022 What Types Of Sporting Activities Do You Participate In? None MIGRATION.0301 924508 Information not available 10/03/2022 Do You Feel Stressed (tense, Restless, Nervous, Or Anxious, Or Unable To Sleep At Night)? [id number] MIGRATION.0301 894259 Information not available 10/03/2022 Do You Use Any Illicit Or Recreational Drugs? No MIGRATION.0301 644226 Information not available 10/03/2022 Do You Use Sunscreen Routinely? No MIGRATION.0301 890821 Information not available 10/03/2022 Has Tobacco Cessation Counseling Been Provided? No MIGRATION.0301 110229 Information not available 10/03/2022 Have You Recently Traveled Abroad? No MIGRATION.0301 016238 Information not available 10/03/2022 Do You Have Any Dietary Restrictions? No MIGRATION.030 014662 Information not available 10/03/2022 Do You Or Have You Ever Used Any Other Forms Of Tobacco Or Nicotine? No MIGRATION.0301 856488 Information not available 10/03/2022 Sex: Female Functional Status Question Answer Note LastModified by Organizat ion Details LastModified Time What is your exercise level? Moderate [id number] Information not available 10/03/2022 Mental Status None recorded. Family History Relationship Description Onset Age of this Age Resolved Age Notes LastModified by Organization Details LastModified Time Mother Heart disease 80 MIGRATION.098 [id number] Not available 10/03/2022 05:55:57 Father Heart disease 65 MIGRATION.909 [id number] Not available 10/03/2022 05:55:57 Father Diabetes mellitus MIGRATION.355 [id number] Not available 10/03/2022 05:55:57 Medical History Condition Response NERVE DISEASE N BLINDNESS N RHEUMATIC FEVER N KIDNEY STONES N BLADDER PROBLEMS N MRSA N OTHER # 1 N POLIO N LUNG DISEASE/DISORDER N HISTORY OF DRUG ABUSE N RADIATION / CHEMOTHERAPY N COPD N Other # 2 N BLOOD DISEASES N EAR OR HEARING PROBLEMS N MUMPS N SHINGLES N DEPRESSION (INCLUDING POST ) N BOWEL PROBLEMS N STROKE/TIA N ULCERS N BENIGN PROSTATIC [...] Brain Problems N HERPES N DEMENTIA N SEIZURES/EPILEPSY N HEADACHES/MIGRAINES N VASCULAR DISEASE N PACEMAKER N Blood Disorder N DIZZINESS N KIDNEY DISEASE N HEART DISEASE/HEART PROBLEMS N MULTIPLE SCLEROSIS N CARDIAC ARRHYTHMIA N CANCER: SPECIFY N Gall Stones N ATRIAL FIBRILLATION N PULMONARY EMBOLISM N AUTOIMMUNE DISEASE N Gynecological HistoryNo gynecological history recorded. Obstetrics History GPAL:G 0 P 0 0 0 0 Past Encounters Encounter ID Performer Location Encounter Start Date Encounter Closed Date Diagnosis/Indication Diagnosis SNOMED-CT Code Diagnosis ICD10 Code Diagnosis Note [id number] Tacos Correa MD [place] [place] [facility] [address] [place] [address] 1 04/11/2021 00:00:00 05/13/2021 12:16:53 [id number] Tacos Correa MD [facility] Internal Med [facility] [address] [place] [address] 1 10/03/2021 00:00:00 10/21/2021 22:52:48 [id number] Tacos Correa MD [facility] [place] [facility] [address] [place] [address] 02/06/2022 00:00:00 02/06/2022 21:05:24 [id number] Tacos Correa MD [facility] [place] [address] [address] 08/15/2022 00:00:00 08/18/2022 21:36:12 [id number] Tacos Correa MD [facility] [place] [address] [address] 02/13/2023 09:53:24 02/13/2023 10:28:30 Anxiety 03610561 F41.9 Benign ess ential hypertension 9657860 I10 Pure hypercholesterolemia 998685734 E78.00 [id number] Tacos Correa MD [facility] [place] [address] [place] [address] 06/19/2023 10:00:12 06/19/2023 11:21:15 Benign essential hypertension 9558380 I10 Anxiety 64770276 F41.9 Pure hypercholesterolemia 106816762 E78.00 Health Concerns Section Related Observation LastModified by Organization Detai ls LastModified Time None Recorded Concern Status LastModified by Organization Details LastModified Time None Recorded Advance Directives Directive N: Payers Encounter Date Sequence Insurance Name Policy Number Policy Ames Covered Member ID Ames Member ID Guarantor Name 02/13/2023 2 [employer] () Olinda F Martin [id number] Olinda F Martin 06/19/2023 2 [employer] () Olinda F Martin [id number] Olinda F Martin 06/19/2023 1 [place] Olinda F Martin [id number] Olinda F Martin Notes Date Note Type Note Provider Name and Address Organization Details Recorded Time 02/13/2023 text/html Anxiety stable hypertension no headache or dizziness GERD 1 episode of breakthrough dyslipidemia tries to follow a low-fat Tacos Correa MD [address] [facility], [facility] [address], [place], [address], [employer] 02/14/2023 19:33:20 06/19/2023 text/html Anxiety stable hypertension no headache or dizziness GERD is better dyslipidemia tries to follow a low-fat. Rhinitis doing fine Tacos Correa MD [address] [facility], [facility] [address], [place], [address], [employer] 06/25/2023 17:10:13 OBGyn Episode No OBEpisode recorded.
--- OUTSIDE RECORDS SUMMARY | 2024-12-08 08:18 | XMS_ITS | Clinical Summary ---
Author Organization [place] [id number] [place] Address [address] [place] [id number] Care Team Providers Care Manager Trade Marketing Name Role Phone Tacos Correa MD Primary Care Provider [phone] Allergies No known active allergies Medications lisinopril [...] Insurance [facility] Address: [facility] [address] [place] [phone] Care Teams Manager Trade Marketing Relationship Specialty Start Date End Date Tacos Correa MD PCP - General Internal Medicine 01/15/18
--- OUTSIDE RECORDS SUMMARY | 2024-12-08 08:18 | XMS_ITS | Continuity of Care Document ---
Author Name [facility] Organization [facility] Care Team Providers Care Car Carder Name Role Phone [facility] Unavailable Unavailable Problems Combined list of problems [...] Ordering Provider Order Date Order Qty Source atorvastati n 20 mg tablet See Instruct [...] 4 2024 90.0 Ambulat ory Pharmac y lisinopril 5 mg tablet See Instruct [...] .Obtain advice for OTCs.Anusha [place] whole. 06/30/2024 [id number] 2023 90 [employer] Maico GRIMALDO ([facility]) omeprazole DR 40 mg capsule See Instruct [...] Known Allergies Drug allergy (disorder) active 12/08/[address] [place] [address]) Encounters Combined list of: 1) Encounters from Department of Veterans Affairs facilities going backup to the last 18 months, not all VA inpatient encounters are included; 2) Encounters from the Department of Defense facilities going backup to 280 months. Location Location Details Encounter Type Encounter Number Reason For Visit Attending Provider ADM Date DC Date Status Disposition Source [address] [place] [address])([facility] Non-GME F[facility]) OUTPATIENT [id number] STOMACH CRAMPS WAKING UP NIGHTS LORENZO MONTEIRO 12/06 Released w/o Limitations [address] [place] [address])([facility]) [address] [place] [address])([facility] Non-GME [facility]) TELE CONSULT [id number] pt wants lab results from SIMEON Shelton 12/[address] [place] [address])([facility]) [address] [place] [address])([facility] Non-[facility]ME [facility]1) TELE CONSULT [id number] Lab Results SIMEON MONTOYA 12/[address] [place] [address] [employer] ([facility] Pract[facility] e Non-GME FHI1) Procedures Combined list of: 1) Procedures from Department of Veterans Affairs facilities going back up to thelast 18 months, not all [place] non-surgical procedures are included; 2) All procedures [...] section is an empty social history section. [facility] Assessment and Plan Combined list of future care activities from Department of Defense and Veterans Affairs facilities (e.g., assessment and plan notes, appointments, orders, and referrals). Additional future care activities may be listed in the Plan of Care section. Result Assessment and Plan Date Source Assessment and Plan No data available for this section 12/08/2024 Ambulatory Pharmacy Functional Status Combined list of recent functional and cognitive assessments recorded at Department of Defense and [facility] Affairs ([place]VA Functional [place] Measurement (FIM) Scale: 1 = Total Assistance (Subject = 0% +), 2 = Maximal Assistance (Subject = 25% +), 3 = Moderate Assistance (Subject = 50% +), 4 = Minimal Assistance (Subject = 75% +), 5 = Supervision, 6 = Modified [place] (Device), 7 = Complete [place] (Timely, Safely). Assessment Date/Time Source Assessment Type Assessment Skill Assessment Score Assessment Details No data available for this section
[2024-12-08 08:27] LABS: Basophils Absolute Auto 0.02 K/mm3 (0.00-0.10); Basophils Percent Auto 0.3 % (0.0-1.0); Eosinophils Absolute Auto 0.39 K/mm3 (0.02-0.50); Eosinophils Percent Auto 5.2 % (1.0-6.0); Hematocrit 45.2 % (35.0-42.0); Hemoglobin 14.6 g/dL (11.7-13.8); Immature Granulocyte Absolute 0.03 K/mm3 (0.00-0.00); Immature Granulocyte Percent A 0.4 % (0.0-0.0); Lymphocytes Absolute Auto 2.38 K/mm3 (1.10-4.50); Lymphocytes Percent Auto 31.9 % (18.0-42.0); Mean Corpuscular HGB Conc 32.3 g/dL (32-36); Mean Corpuscular Hemoglobin 29.7 pg (27.0-31.0); Mean Corpuscular Volume 91.9 fL (78.0-102.0); Mean Platelet Volume 10.3 fl (9.2-11.8); Monocytes Absolute Auto 0.56 K/mm3 (0.10-0.90); Monocytes Percent Auto 7.5 % (2.0-11.0); Neutrophils Absolute Auto 4.09 K/mm3 (1.70-7.20); Neutrophils Percent Auto 54.7 % (50.0-70.0); Platelet Count Result 215 K/mm3 (150-420); Red Blood Count 4.92 M/mm3 (4.20-5.40); Red Cell Distribution Width 13.2 % (11.6-14.4); White Blood Count 7.5 K/mm3 (4.8-10.8)
[2024-12-08 09:34] LABS: Alanine Aminotransferase 35 U/L (14-59); Albumin Level 3.6 g/dL (3.4-5.0); Alkaline Phosphatase 80 U/L (46-116); Anion Gap 6 mmol/L (4-12); Aspartate Amino Transferase 11 U/L (15-37); Bilirubin,Total 0.4 mg/dL (0.00-1.00); Blood Urea Nitrogen 13 mg/dL (7-18); Calcium 9.5 mg/dL (8.5-10.1); Carbon Dioxide 31 mmol/L (21-32); Chloride 103 mmol/L (98-108); Cholesterol 189 mg/dL (0-200); Estimated Glomerular Filt Rate 55; Glucose 81 mg/dL (70-99); HDL Direct 63 mg/dL (40-60); LDL Cholesterol Calculated 88 mg/dL (<130); Osmolality Calculated 289 mOsm/kg (285-295); Potassium 4.4 mmol/L (3.5-5.1); Sodium 140 mmol/L (136-145); Triglycerides 188 mg/dL (0-150)
== END 2024-12-08 08:10 | disposition home or self-care (01) ==
LOC: CHSLAB 08:12
PROVIDERS: PCP Internal Medicine; Visit Provider Internal Medicine
DX: I10 Essential (primary) hypertension (principal)
CPT/HCPCS: 36415; 80053; 80061; 85025

== ENCOUNTER 2025-02-07 10:28 | Emergency (ER) | payer MEDICARE, OTHER, SELFPAY ==
[2025-02-07 10:29] VITALS: BP 138/77; PULSE 81; RESP 18; TEMP 36.6; O2SAT 94
--- OUTSIDE RECORDS SUMMARY | 2025-02-07 10:30 | XMS_ITS | Data Portability ---
Author Organization [place] [employer], Main Office Address [address] [place] [address] Assessment Encounter Date Assessment Date Assessment LastModified by Organization Details LastModified Time 02/13/2023 02/13/2023 Continue current therapy diagnosis discussed she can add Pepcid at night follow-up with me in 6 months if she has more breakthrough pain GERD she will call [email or web address] Not available 02/14/2023 19:33:05 06/19/2023 06/19/2023 Will continue current therapy follow-up 6 months blood work ordered [email or web address] Not available 06/25/2023 17:09:58 Plan of Treatment Reminders Order Date Submit Date Provider Last Modified By Organization Details Last Modified Time Details Appointments None recorded . Lab CMP, serum or plasma 023 06/19/20 [facility] (Lab), [address] [place], [address], 3 15:08:57 lipid panel, serum 023 06/19/20 [facility] (Lab), [address] [place], [address], 3 15:09:08 Referral None recorded . Procedures [...] T3 4.1 pg/mL 2.77-5 .27 Not Available [facility] (Lab) [address] [place], [address], 10/05/2021 12:40:09 10/06/19 22 10/05/2021 T4 FREE free T4 0.89 NG/dL 0.78-2 .19 Not Available [facility] (Lab) [address] [place], [address], 10/05/2021 12:23:49 10/06/19 22 10/05/2021 LIPID PANEL [...] WILL NOT BE REPOR GEORGE. Not Available [facility] (Lab) [address] [place], [address], 10/05/2021 12:05:08 10/06/19 22 10/05/2021 LIPID PANEL cholesterol 189 mg/dL 140-19 9 NIH ALEXANDR NSUS RECOM MENDA TION FOR TODD STERO L: ADULT CHILD LOW RISK: <200 <170 BORDE RLINE : <200- 239 ----- HIGH RISK: >240 >200 Not Available [facility] (Lab) [address] [place], [address], 10/05/2021 12:05:08 10/06/19 22 10/05/2021 LIPID PANEL triglyceride s 204 mg/dL 0-150 high NIH ALEXANDR NSUS REPOR T RECOM MENDA TION FOR TRIGL YCERI VALDEZ: ADULT CHILD LOW RISK: <150 ----- BODER LINE: 150-1 99 ----- HIGH RISK: >200 ----- Not Available [facility] (Lab) [address] [place], [address], 10/05/2021 12:05:08 10/06/19 22 10/05/2021 LIPID PANEL HDL cholesterol 52 mg/dL 40- Not Available [facility] (Lab) [address] [place], [address], 10/05/2021 12:05:08 10/06/19 22 10/05/2021 CBC/C OMPLE TE BLD COUNT W/DIF F white blood cells 7.7 x10'3 /uL 4.2-10 .8 Not Available [facility] (Lab) [address] [place], [address], 10/05/2021 10:11:29 10/06/19 22 10/05/2021 CBC/C OMPLE TE BLD COUNT W/DIF F red blood cells 4.81 x10'6 /uL 3.80-5 .20 Not Available [facility] (Lab) [address] [place], [address], 10/05/2021 10:11:29 10/06/19 22 10/05/2021 CBC/C OMPLE TE BLD COUNT W/DIF F hemoglobin 14.5 g/dL 12.0-1 5.6 Not Available [facility] (Lab) [address] [place], [address], 10/05/2021 10:11:29 10/06/19 22 10/05/2021 CBC/C OMPLE TE BLD COUNT W/DIF F hematocrit 43.8 % 35.7-4 5.7 Not Available [facility] (Lab) [address] [place], [address], 10/05/2021 10:11:29 10/06/19 22 10/05/2021 CBC/C OMPLE TE BLD COUNT W/DIF F mean red cell volume 91.1 fL 82.0-9 9.0 Not Available [facility] (Lab) [address] [place], [address], 10/05/2021 10:11:29 10/06/19 22 10/05/2021 CBC/C OMPLE TE BLD COUNT W/DIF F mean red cell hemoglobin 30.1 pg 27.0-3 3.0 Not Available [facility] (Lab) [address] [place], [address], 10/05/2021 10:11:29 10/06/19 22 10/05/2021 CBC/C OMPLE TE BLD COUNT W/DIF F mean RBC HGB concentratio n 33.1 g/dL 31.0-3 6.0 Not Available [facility] (Lab) [address] [place], [address], 10/05/2021 10:11:29 10/06/19 22 10/05/2021 CBC/C OMPLE TE BLD COUNT W/DIF F red cell distribution width 13.3 % 11.8-1 5.5 Not Available [facility] (Lab) [address] [place], [address], 10/05/2021 10:11:29 10/06/19 22 10/05/2021 CBC/C OMPLE TE BLD COUNT W/DIF F platelets 219 x10'3 /uL 150-40 0 Not Available [facility] (Lab) [address] [place], [address], 10/05/2021 10:11:29 10/06/19 22 10/05/2021 CBC/C OMPLE TE BLD COUNT W/DIF F mean platelet volume 10.2 fL 9.0-12 .4 Not Available [facility] (Lab) [address] [place], [address], 10/05/2021 10:11:29 10/06/19 22 10/05/2021 CBC/C OMPLE TE BLD COUNT W/DIF F neutrophils 57.3 % 39.0-7 2.0 Not Available [facility] (Lab) [address] [place], [address], 10/05/2021 10:11:29 10/06/19 22 10/05/2021 CBC/C OMPLE TE BLD COUNT W/DIF F lymphocytes 28.3 % 16.0-4 7.0 Not Available [facility] (Lab) [address] [place], [address], 10/05/2021 10:11:29 10/06/19 22 10/05/2021 CBC/C OMPLE TE BLD COUNT W/DIF F monocytes 8.1 % 5.0-12 .0 Not Available [facility] (Lab) [address] [place], [address], 10/05/2021 10:11:29 10/06/19 22 10/05/2021 CBC/C OMPLE TE BLD COUNT W/DIF F eosinophils 5.5 % 1.0-7. 0 Not Available [facility] (Lab) [address] [place], [address], 10/05/2021 10:11:29 10/06/19 22 10/05/2021 CBC/C OMPLE TE BLD COUNT W/DIF F basophils 0.4 % 0.0-2. 0 Not Available [facility] (Lab) [address] [place], [address], 10/05/2021 10:11:29 10/06/19 22 10/05/2021 CBC/C OMPLE TE BLD COUNT W/DIF F immature granulocytes 0.4 % 0.00-0 .50 Not Available [facility] (Lab) [address] [place], [address], 10/05/2021 10:11:29 10/06/19 22 10/05/2021 CBC/C OMPLE TE BLD COUNT W/DIF F neutrophils, absolute count 4.41 x10'3 /uL 1.5-8. 0 Not Available [facility] (Lab) [address] [place], [address], 10/05/2021 10:11:29 10/06/19 22 10/05/2021 CBC/C OMPLE TE BLD COUNT W/DIF F lymphocytes, absolute count 2.18 x10'3 /uL 1.07-3 .43 Not Available [facility] (Lab) [address] [place], [address], 10/05/2021 10:11:29 10/06/19 22 10/05/2021 CBC/C OMPLE TE BLD COUNT W/DIF F monocytes, absolute count 0.62 x10'3 /uL 0.29-0 .99 Not Available [facility] (Lab) [address] [place], [address], 10/05/2021 10:11:29 10/06/19 22 10/05/2021 CBC/C OMPLE TE BLD COUNT W/DIF F eosinophils, absolute count 0.42 x10'3 /uL 0.02-0 .53 Not Available [facility] (Lab) [address] [place], [address], 10/05/2021 10:11:29 10/06/19 22 10/05/2021 CBC/C OMPLE TE BLD COUNT W/DIF F basophils, absolute count 0.03 x10'3 /uL 0.01-0 .08 Not Available [facility] (Lab) [address] [place], [address], 10/05/2021 10:11:29 10/06/19 22 10/05/2021 CBC/C OMPLE TE BLD COUNT W/DIF F immature granulocytes ,absolute 0.03 x10'3 /uL 0.00-0 .05 Not Available [facility] (Lab) [address] [place], [address], 10/05/2021 10:11:29 10/06/19 22 10/05/2021 CBC/C OMPLE TE BLD COUNT W/DIF F nucleated red blood cells 0.0 % -0 Not Available [facility] (Lab) [address] [place], [address], 10/05/2021 10:11:29 10/06/19 22 10/05/2021 CBC/C OMPLE TE BLD COUNT W/DIF F NRBC# 0.00 x10'3 /uL Not Available [facility] (Lab) [address] [place], [address], 10/05/2021 10:11:29 10/06/19 22 10/05/2021 TSH thyroid-stim ulating hormone 2.730 uIU/m L 0.465- 4.680 Not Available [facility] (Lab) [address] [place], [address], 10/05/2021 12:31:18 10/06/19 22 10/05/2021 MAGNE SIUM magnesium 2.1 mg/dL 1.6-2. 3 Not Available [facility] (Lab) [address] [place], [address], 10/05/2021 12:05:12 10/06/19 22 10/05/2021 COMPR EHENS SELVIN METAB OLIC PANEL sodium 143 mmol/ L 137-14 5 Not Available [facility] (Lab) [address] [place], [address], 10/05/2021 12:04:59 10/06/19 22 10/05/2021 COMPR EHENS SELVIN METAB OLIC PANEL potassium 4.4 mmol/ L 3.5-5. 1 Not Available [facility] (Lab) [address] [place], [address], 10/05/2021 12:04:59 10/06/19 22 10/05/2021 COMPR EHENS SELVIN METAB OLIC PANEL chloride 108 mmol/ L 98-107 high Not Available [facility] (Lab) [address] [place], [address], 10/05/2021 12:04:59 10/06/19 22 10/05/2021 COMPR EHENS SELVIN METAB OLIC PANEL carbon dioxide 29 mmol/ L 22-30 Not Available [facility] (Lab) [address] [place], [address], 10/05/2021 12:04:59 10/06/19 22 10/05/2021 COMPR EHENS SELVIN METAB OLIC PANEL agap 10.4 mmol/ L 14-22 low Not Available [facility] (Lab) [address] [place], [address], 10/05/2021 12:04:59 10/06/19 22 10/05/2021 COMPR EHENS SELVIN METAB OLIC PANEL glucose 84 mg/dL 70-99 Not Available [facility] (Lab) [address] [place], [address], 10/05/2021 12:04:59 10/06/19 22 10/05/2021 COMPR EHENS SELVIN METAB OLIC PANEL BUN 11 mg/dL 8-19 Not Available [facility] (Lab) [address] [place], [address], 10/05/2021 12:04:59 10/06/19 22 10/05/2021 COMPR EHENS SELVIN METAB OLIC PANEL creatinine 0.81 mg/dL 0.66-1 .25 Not Available [facility] (Lab) [address] [place], [address], 10/05/2021 12:04:59 10/06/19 22 10/05/2021 COMPR EHENS SELVIN METAB OLIC PANEL bilirubin, total 0.30 mg/dL 0.20-1 .30 Not Available [facility] (Lab) [address] [place], [address], 10/05/2021 12:04:59 10/06/19 22 10/05/2021 COMPR EHENS SELVIN METAB OLIC PANEL GFR >60 Refer ence Range : [place] GFR Healt hy Adult : >60 [...] calcu lator is avail able on the [facility] websi te: [email or web address] :[email or web address] s/kdo qi/gf r_cal culat or Not Available [facility] (Lab) [address] [place], [address], 10/05/2021 12:04:59 10/06/19 22 10/05/2021 COMPR EHENS SELVIN METAB OLIC PANEL alkaline phosphatase 76 U/L 38-126 Not Available [facility] (Lab) [address] [place], [address], 10/05/2021 12:04:59 10/06/19 22 10/05/2021 COMPR EHENS SELVIN METAB OLIC PANEL alanine aminotransfe rase 26 U/L 0-35 Not Available [facility] (Lab) [address] [place], [address], 10/05/2021 12:04:59 10/06/19 22 10/05/2021 COMPR EHENS SELVIN METAB OLIC PANEL aspartate aminotransfe rase 24 U/L 15-37 Not Available [facility] (Lab) [address] [place], [address], 10/05/2021 12:04:59 10/06/19 22 10/05/2021 COMPR EHENS SELVIN METAB OLIC PANEL calcium 9.7 mg/dL 8.4-10 .2 Not Available [facility] (Lab) [address] [place], [address], 10/05/2021 12:04:59 10/06/19 22 10/05/2021 COMPR EHENS SELVIN METAB OLIC PANEL total protein 6.8 g/dL 6.3-8. 2 Not Available [facility] (Lab) [address] [place], [address], 10/05/2021 12:04:59 10/06/19 22 10/05/2021 COMPR EHENS SELVIN METAB OLIC PANEL albumin 4.1 g/dL 3.0-4. 4 Not Available [facility] (Lab) [address] [place], [address], 10/05/2021 12:04:59 10/06/19 22 10/05/2021 COMPR EHENS SELVIN METAB OLIC PANEL globulin 2.7 g/dL 2.6-4. 2 Not Available [facility] (Lab) [address] [place], [address], 10/05/2021 12:04:59 10/06/19 22 10/05/2021 COMPR EHENS SELVIN METAB OLIC PANEL A/G ratio 1.5 ratio 1.0-2. 0 Not Available [facility] (Lab) [address] [place], [address], 10/05/2021 12:04:59 10/06/1910/05/2021 BNP/B -NATR IURET IC PEPTI DE BNP 59 pg/mL 4-125 Not Available [facility] (Lab) [address] [place], [address], 10/05/2021 10:47:46 08/15/19 23 08/15/2022 CBC/C OMPLE TE BLD COUNT W/DIF F mean RBC HGB concentratio n 33.2 g/dL 31.0-3 6.0 Not Available [facility] (Lab) [address] [place], [address], 08/15/2022 13:19:12 08/15/19 23 08/15/2022 CBC/C OMPLE TE BLD COUNT W/DIF F white blood cells 8.3 x10'3 /uL 4.2-10 .8 Not Available [facility] (Lab) [address] [place], [address], 08/15/2022 13:19:12 08/15/19 23 08/15/2022 CBC/C OMPLE TE BLD COUNT W/DIF F red blood cells 5.03 x10'6 /uL 3.80-5 .20 Not Available [facility] (Lab) [address] [place], [address], 08/15/2022 13:19:12 08/15/19 23 08/15/2022 CBC/C OMPLE TE BLD COUNT W/DIF F hemoglobin 15.2 g/dL 12.0-1 5.6 Not Available [facility] (Lab) [address] [place], [address], 08/15/2022 13:19:12 08/15/19 23 08/15/2022 CBC/C OMPLE TE BLD COUNT W/DIF F hematocrit 45.8 % 35.7-4 5.7 high Not Available [facility] (Lab) [address] [place], [address], 08/15/2022 13:19:12 08/15/19 23 08/15/2022 CBC/C OMPLE TE BLD COUNT W/DIF F mean red cell volume 91.1 fL 82.0-9 9.0 Not Available [facility] (Lab) [address] [place], [address], 08/15/2022 13:19:12 08/15/19 23 08/15/2022 CBC/C OMPLE TE BLD COUNT W/DIF F mean red cell hemoglobin 30.2 pg 27.0-3 3.0 Not Available [facility] (Lab) [address] [place], [address], 08/15/2022 13:19:12 08/15/19 23 08/15/2022 CBC/C OMPLE TE BLD COUNT W/DIF F red cell distribution width 13.1 % 11.8-1 5.5 Not Available [facility] (Lab) [address] [place], [address], 08/15/2022 13:19:12 08/15/19 23 08/15/2022 CBC/C OMPLE TE BLD COUNT W/DIF F platelets 232 x10'3 /uL 150-40 0 Not Available [facility] (Lab) [address] [place], [address], 08/15/2022 13:19:12 08/15/19 23 08/15/2022 CBC/C OMPLE TE BLD COUNT W/DIF F mean platelet volume 11.0 fL 9.0-12 .4 Not Available [facility] (Lab) [address] [place], [address], 08/15/2022 13:19:12 08/15/19 23 08/15/2022 CBC/C OMPLE TE BLD COUNT W/DIF F neutrophils 62.2 % 39.0-7 2.0 Not Available [facility] (Lab) [address] [place], [address], 08/15/2022 13:19:12 08/15/19 23 08/15/2022 CBC/C OMPLE TE BLD COUNT W/DIF F lymphocytes 27.1 % 16.0-4 7.0 Not Available [facility] (Lab) [address] [place], [address], 08/15/2022 13:19:12 08/15/19 23 08/15/2022 CBC/C OMPLE TE BLD COUNT W/DIF F monocytes 5.7 % 5.0-12 .0 Not Available [facility] (Lab) [address] [place], [address], 08/15/2022 13:19:12 08/15/19 23 08/15/2022 CBC/C OMPLE TE BLD COUNT W/DIF F eosinophils 4.2 % 1.0-7. 0 Not Available [facility] (Lab) [address] [place], [address], 08/15/2022 13:19:12 08/15/19 23 08/15/2022 CBC/C OMPLE TE BLD COUNT W/DIF F basophils 0.4 % 0.0-2. 0 Not Available [facility] (Lab) [address] [place], [address], 08/15/2022 13:19:12 08/15/1908/15/2022 CBC/C OMPLE TE BLD COUNT W/DIF F immature granulocytes 0.4 % 0.00-0 .50 Not Available [facility] (Lab) [address] [place], [address], 08/15/2022 13:19:12 08/15/19 23 08/15/2022 CBC/C OMPLE TE BLD COUNT W/DIF F neutrophils, absolute count 5.16 x10'3 /uL 1.5-8. 0 Not Available [facility] (Lab) [address] [place], [address], 08/15/2022 13:19:12 08/15/19 23 08/15/2022 CBC/C OMPLE TE BLD COUNT W/DIF F lymphocytes, absolute count 2.24 x10'3 /uL 1.07-3 .43 Not Available [facility] (Lab) [address] [place], [address], 08/15/2022 13:19:12 08/15/19 23 08/15/2022 CBC/C OMPLE TE BLD COUNT W/DIF F monocytes, absolute count 0.47 x10'3 /uL 0.29-0 .99 Not Available [facility] (Lab) [address] [place], [address], 08/15/2022 13:19:12 08/15/19 23 08/15/2022 CBC/C OMPLE TE BLD COUNT W/DIF F eosinophils, absolute count 0.35 x10'3 /uL 0.02-0 .53 Not Available [facility] (Lab) [address] [place], [address], 08/15/2022 13:19:12 08/15/19 23 08/15/2022 CBC/C OMPLE TE BLD COUNT W/DIF F basophils, absolute count 0.03 x10'3 /uL 0.01-0 .08 Not Available [facility] (Lab) [address] [place], [address], 08/15/2022 13:19:12 08/15/19 23 08/15/2022 CBC/C OMPLE TE BLD COUNT W/DIF F immature granulocytes ,absolute 0.03 x10'3 /uL 0.00-0 .05 Not Available [facility] (Lab) [address] [place], [address], 08/15/2022 13:19:12 08/15/19 23 08/15/2022 CBC/C OMPLE TE BLD COUNT W/DIF F nucleated red blood cells 0.0 % -0 Not Available [facility] (Lab) [address] [place], [address], 08/15/2022 13:19:12 08/15/19 23 08/15/2022 CBC/C OMPLE TE BLD COUNT W/DIF F NRBC# 0.00 x10'3 /uL Not Available [facility] (Lab) [address] [place], [address], 08/15/2022 13:19:12 08/15/19 23 08/15/2022 LIPID PANEL [...] WILL NOT BE REPOR GEORGE. Not Available [facility] (Lab) [address] [place], [address], 08/15/2022 13:54:31 08/15/19 23 08/15/2022 LIPID PANEL cholesterol 203 mg/dL 140-19 9 high NIH ALEXANDR NSUS RECOM MENDA TION FOR TODD STERO L: ADULT CHILD LOW RISK: <200 <170 BORDE RLINE : <200- 239 ----- HIGH RISK: >240 >200 Not Available [facility] (Lab) [address] [place], [address], 08/15/2022 13:54:31 08/15/1908/15/2022 LIPID PANEL triglyceride s 222 mg/dL 0-150 high NIH ALEXANDR NSUS REPOR T RECOM MENDA TION FOR TRIGL YCERI VALDEZ: ADULT CHILD LOW RISK: <150 ----- BODER LINE: 150-1 99 ----- HIGH RISK: >200 ----- Not Available [facility] (Lab) [address] [place], [address], 08/15/2022 13:54:31 08/15/19 23 08/15/2022 LIPID PANEL HDL cholesterol 56 mg/dL 40- Not Available [facility] (Lab) [address] [place], [address], 08/15/2022 13:54:31 08/15/19 23 08/15/2022 COMPR EHENS SELVIN METAB OLIC PANEL carbon dioxide 27 mmol/ L 22-30 Not Available [facility] (Lab) [address] [place], [address], 08/15/2022 13:54:26 08/15/19 23 08/15/2022 COMPR EHENS SELVIN METAB OLIC PANEL sodium 142 mmol/ L 137-14 5 Not Available [facility] (Lab) [address] [place], [address], 08/15/2022 13:54:26 08/15/19 23 08/15/2022 COMPR EHENS SELVIN METAB OLIC PANEL potassium 4.8 mmol/ L 3.5-5. 1 Not Available [facility] (Lab) [address] [place], [address], 08/15/2022 13:54:26 08/15/19 23 08/15/2022 COMPR EHENS SELVIN METAB OLIC PANEL chloride 108 mmol/ L 98-107 high Not Available [facility] (Lab) [address] [place], [address], 08/15/2022 13:54:26 08/15/19 23 08/15/2022 COMPR EHENS SELVIN METAB OLIC PANEL anion gap 11.8 mmol/ L 14-22 low Not Available [facility] (Lab) [address] [place], [address], 08/15/2022 13:54:26 08/15/19 23 08/15/2022 COMPR EHENS SELVIN METAB OLIC PANEL glucose 96 mg/dL 70-99 Not Available [facility] (Lab) [address] [place], [address], 08/15/2022 13:54:26 08/15/19 23 08/15/2022 COMPR EHENS SELVIN METAB OLIC PANEL BUN 14 mg/dL 8-19 Not Available [facility] (Lab) [address] [place], [address], 08/15/2022 13:54:26 08/15/19 23 08/15/2022 COMPR EHENS SELVIN METAB OLIC PANEL creatinine 0.84 mg/dL 0.66-1 .25 Not Available [facility] (Lab) [address] [place], [address], 08/15/2022 13:54:26 08/15/19 23 08/15/2022 COMPR EHENS SELVIN METAB OLIC PANEL GFR >60 Refer ence Range : [place] GFR Healt hy Adult : >60 [...] or ethni c subgr oups, such as Hisla nics. Outsi de the valid ated alyssia [...] calcu lator is avail able on the [facility] websi te: [email or web address] :[email or web address] cassieal s/kdo qi/gf r_cal culat or Not Available [facility] (Lab) [address] [place], [address], 08/15/2022 13:54:26 08/15/19 23 08/15/2022 COMPR EHENS SELVIN METAB OLIC PANEL alkaline phosphatase 80 U/L 38-126 Not Available [facility] (Lab) [address] [place], [address], 08/15/2022 13:54:26 08/15/19 23 08/15/2022 COMPR EHENS SELVIN METAB OLIC PANEL alanine aminotransfe rase 26 U/L 0-35 Not Available [facility] (Lab) [address] [place], [address], 08/15/2022 13:54:26 08/15/19 23 08/15/2022 COMPR EHENS SELVIN METAB OLIC PANEL aspartate aminotransfe rase 22 U/L 15-37 Not Available [facility] (Lab) [address] [place], [address], 08/15/2022 13:54:26 08/15/19 23 08/15/2022 COMPR EHENS SLEVIN METAB OLIC PANEL bilirubin, total 0.50 mg/dL 0.20-1 .30 Not Available [facility] (Lab) [address] [place], [address], 08/15/2022 13:54:26 08/15/19 23 08/15/2022 COMPR EHENS SELVIN METAB OLIC PANEL calcium 9.7 mg/dL 8.4-10 .2 Not Available [facility] (Lab) [address] [place], [address], 08/15/2022 13:54:26 08/15/19 23 08/15/2022 COMPR EHENS SELVIN METAB OLIC PANEL total protein 6.7 g/dL 6.3-8. 2 Not Available [facility] (Lab) [address] [place], [address], 08/15/2022 13:54:26 08/15/19 23 08/15/2022 COMPR EHENS SELVIN METAB OLIC PANEL albumin 4.2 g/dL 3.0-4. 4 Not Available [facility] (Lab) [address] [place], [address], 08/15/2022 13:54:26 08/15/19 23 08/15/2022 COMPR EHENS SELVIN METAB OLIC PANEL globulin 2.5 g/dL 2.6-4. 2 low Not Available [facility] (Lab) [address] [place], [address], 08/15/2022 13:54:26 08/15/19 23 08/15/2022 COMPR EHENS SELVIN METAB OLIC PANEL A/G ratio 1.7 ratio 1.0-2. 0 Not Available [facility] (Lab) [address] [place], [address], 08/15/2022 13:54:26 08/15/19 23 08/15/2022 URINA LYSIS COMPL ETE/I RIS W/RFX nitrite negati ve negati ve- Not Available [facility] (Lab) [address] [place], [address], 08/15/2022 13:33:50 08/15/19 23 08/15/2022 URINA LYSIS COMPL ETE/I RIS W/RFX color light- yellow Not Available [facility] (Lab) [address] [place], [address], 08/15/2022 13:33:50 08/15/19 23 08/15/2022 URINA LYSIS COMPL ETE/I RIS W/RFX appear clear Not Available [facility] (Lab) [address] [place], [address], 08/15/2022 13:33:50 08/15/19 23 08/15/2022 URINA LYSIS COMPL ETE/I RIS W/RFX specific gravity 1.007 1.001- 1.030 Not Available [facility] (Lab) [address] [place], [address], 08/15/2022 13:33:50 08/15/19 23 08/15/2022 URINA LYSIS COMPL ETE/I RIS W/RFX pH 7.0 pH_un its 5.0-9. 0 Not Available [facility] (Lab) [address] [place], [address], 08/15/2022 13:33:50 08/15/19 23 08/15/2022 URINA LYSIS COMPL ETE/I RIS W/RFX leukocytes negati ve jose juan/u L negati ve- Not Available [facility] (Lab) [address] [place], [address], 08/15/2022 13:33:50 08/15/19 23 08/15/2022 URINA LYSIS COMPL ETE/I RIS W/RFX protein negati ve mg/dL negati ve- Not Available [facility] (Lab) [address] [place], [address], 08/15/2022 13:33:50 08/15/19 23 08/15/2022 URINA LYSIS COMPL ETE/I RIS W/RFX glucose normal mg/dL normal - Not Available [facility] (Lab) [address] [place], [address], 08/15/2022 13:33:50 08/15/19 23 08/15/2022 URINA LYSIS COMPL ETE/I RIS W/RFX ketones negati ve mg/dL negati ve- Not Available [facility] (Lab) [address] [place], [address], 08/15/2022 13:33:50 08/15/19 23 08/15/2022 URINA LYSIS COMPL ETE/I RIS W/RFX urobilinogen normal mg/dL normal - Not Available [facility] (Lab) [address] [place], [address], 08/15/2022 13:33:50 08/15/19 23 08/15/2022 URINA LYSIS COMPL ETE/I RIS W/RFX bilirubin negati ve mg/dL negati ve- Not Available [facility] (Lab) [address] [place], [address], 08/15/2022 13:33:50 08/15/19 23 08/15/2022 URINA LYSIS COMPL ETE/I RIS W/RFX blood negati ve mg/dL negati ve- Not Available [facility] (Lab) [address] [place], [address], 08/15/2022 13:33:50 08/15/19 23 08/15/2022 URINA LYSIS COMPL ETE/I RIS W/RFX white blood cells 0-8 /i??h pfi?? 0-8 Not Available [facility] (Lab) [address] [place], [address], 08/15/2022 13:33:50 08/15/19 23 08/15/2022 URINA LYSIS COMPL ETE/I RIS W/RFX red blood cells 0-4 /i??h pfi?? 0-4 Not Available [facility] (Lab) [address] [place], [address], 08/15/2022 13:33:50 08/15/19 23 08/15/2022 URINA LYSIS COMPL ETE/I RIS W/RFX bacteria occasi onal abnormal Not Available [facility] (Lab) [address] [place], [address], 08/15/2022 13:33:50 08/15/19 23 08/15/2022 URINA LYSIS COMPL ETE/I RIS W/RFX squamous epithelial packed field /i??l pfi?? abnormal Not Available [facility] (Lab) [address] [place], [address], 08/15/2022 13:33:50 06/19/20 23 06/19/2023 COMPR EHENS SELVIN METAB OLIC PANEL sodium 141 mmol/ L 137-14 5 Not Available [facility] (Lab) [address] [place], [address], 06/19/2023 15:08:57 06/19/2006/19/2023 COMPR EHENS SELVIN METAB OLIC PANEL potassium 4.2 mmol/ L 3.5-5. 1 Not Available [facility] (Lab) [address] [place], [address], 06/19/2023 15:08:57 06/19/20 23 06/19/2023 COMPR EHENS SELVIN METAB OLIC PANEL chloride 107 mmol/ L 98-107 Not Available [facility] (Lab) [address] [place], [address], 06/19/2023 15:08:57 06/19/20 23 06/19/2023 COMPR EHENS SELVIN METAB OLIC PANEL carbon dioxide 27 mmol/ L 22-30 Not Available [facility] (Lab) [address] [place], [address], 06/19/2023 15:08:57 06/19/20 23 06/19/2023 COMPR EHENS SELVIN METAB OLIC PANEL anion gap 11.2 mmol/ L 14-22 low Not Available [facility] (Lab) [address] [place], [address], 06/19/2023 15:08:57 06/19/20 23 06/19/2023 COMPR EHENS SELVIN METAB OLIC PANEL glucose 107 mg/dL 70-99 high Not Available [facility] (Lab) [address] [place], [address], 06/19/2023 15:08:57 06/19/20 23 06/19/2023 COMPR EHENS SELVIN METAB OLIC PANEL BUN 11 mg/dL 8-19 Not Available [facility] (Lab) [address] [place], [address], 06/19/2023 15:08:57 06/19/20 23 06/19/2023 COMPR EHENS SELVIN METAB OLIC PANEL creatinine 0.78 mg/dL 0.66-1 .25 Not Available [facility] (Lab) [address] [place], [address], 06/19/2023 15:08:57 06/19/20 23 06/19/2023 COMPR EHENS SELVIN METAB OLIC PANEL GFR >60 Refer ence Range : [place] ge GFR Healt hy Adult : >60 [...] calcu lator is avail able on the NKF websi te: [email or web address] :[email or web address]/kdo qi/gf r_cal culat or Not Available [facility] (Lab) [address] [place], [address], 06/19/2023 15:08:57 06/19/20 23 06/19/2023 COMPR EHENS SELVIN METAB OLIC PANEL alkaline phosphatase 79 U/L 38-126 Not Available [facility] (Lab) [address] [place], [address], 06/19/2023 15:08:57 06/19/20 23 06/19/2023 COMPR EHENS SELVIN METAB OLIC PANEL alanine aminotransfe rase 27 U/L 0-35 Not Available [facility] (Lab) [address] [place], [address], 06/19/2023 15:08:57 06/19/20 23 06/19/2023 COMPR EHENS SELVIN METAB OLIC PANEL aspartate aminotransfe rase 36 U/L 15-37 Not Available [facility] (Lab) [address] [place], [address], 06/19/2023 15:08:57 06/19/20 23 06/19/2023 COMPR EHENS SELVIN METAB OLIC PANEL bilirubin, total 0.50 mg/dL 0.20-1 .30 Not Available [facility] (Lab) [address] [place], [address], 06/19/2023 15:08:57 06/19/20 23 06/19/2023 COMPR EHENS SELVIN METAB OLIC PANEL calcium 9.8 mg/dL 8.4-10 .2 Not Available [facility] (Lab) [address] [place], [address], 06/19/2023 15:08:57 06/19/20 23 06/19/2023 COMPR EHENS SELVIN METAB OLIC PANEL total protein 7.3 g/dL 6.3-8. 2 Not Available [facility] (Lab) [address] [place], [address], 06/19/2023 15:08:57 06/19/20 23 06/19/2023 COMPR EHENS SELVIN METAB OLIC PANEL albumin 4.2 g/dL 3.0-4. 4 Not Available [facility] (Lab) [address] [place], [address], 06/19/2023 15:08:57 06/19/20 23 06/19/2023 COMPR EHENS SELVIN METAB OLIC PANEL globulin 3.1 g/dL 2.6-4. 2 Not Available [facility] (Lab) [address] [place], [address], 06/19/2023 15:08:57 06/19/20 23 06/19/2023 COMPR EHENS SELVIN METAB OLIC PANEL A/G ratio 1.4 ratio 1.0-2. 0 Not Available [facility] (Lab) [address] [place], [address], 06/19/2023 15:08:57 06/19/2006/19/2023 LIPID PANEL cholesterol 215 mg/dL 140-19 9 high NIH ALEXANDR NSUS RECOM MENDA TION FOR TODD STERO L: ADULT CHILD LOW RISK: <200 <170 BORDE RLINE : <200- 239 ----- HIGH RISK: >240 >200 Not Available [facility] (Lab) [address] [place], [address], 06/19/2023 15:09:08 06/19/2006/19/2023 LIPID PANEL triglyceride s 225 mg/dL 0-150 high NIH ALEXANDR NSUS REPOR T RECOM MENDA TION FOR TRIGL YCERI VALDEZ: ADULT CHILD LOW RISK: <150 ----- BODER LINE: 150-1 99 ----- HIGH RISK: >200 ----- Not Available [facility] (Lab) [address] [place], [address], 06/19/2023 15:09:08 06/19/20 23 06/19/2023 LIPID PANEL HDL cholesterol 47 mg/dL 40- Not Available [facility] (Lab) [address] [place], [address], 06/19/2023 15:09:08 06/19/20 23 06/19/2023 LIPID PANEL [...] WILL NOT BE REPOR GEORGE. Not Available [facility] (Lab) [address] [place], [address], 06/19/2023 15:09:08 10/06/19 22 10/05/2021 XR, chest , 2 view [facility] [address] [facility] [place] [address] [phone] Patien t Name: ISIS MARTIN Access ion #: [id number] Sex: F : 1959 1 Locati on: [facility] Attend ing Physic trina: JOSE CORREA Orderi ng Physic trina: JOSE CORREA Exam Date: 10/06/19 22 8:44 AM Exam Name: XR CHEST 2V [...] 2 view chest. Page 1 of 2 [facility] Name: ISIS MARTIN Access ion #: [id number] Sex: F : 1959 1 Exam Date: 10/06/19 8:44 AM Exam Name: XR CHEST 2V Admitt ing Diagno sis(es ): Create d and electr onical ly signed by: Samm roy MD Signed Date: 10/06/19 10:55 AM (CT) Dictat ed by: Samm roy MD (CT) (CT) Page 2 of 2 [id number] [facility] (Imaging) [address] [place], [address], 10/03/2022 06:08:38 10/26/19 22 10/05/2021 , [facility] ardio gram No observ ation record ed. [id number] [facility] (One Call Scheduling) [address] [place], [address], 10/03/2022 06:08:38 Result Notes Documentation Provider Name and Address Organization Details Recorded Time Xr, Chest, 2 View : [facility] [address] [place] [address] Patient Name: OLINDA MARTIN Sex: F : 1960 Location: [facility] Attending Physician: CHIO CORREA Ordering Physician: CHIO CORREA Exam Date: 10/05/2021 8:44 AM Exam Name: XR CHEST 2V Admitting Diagnosis(es): RADIOLOGY REPORT - FINAL EXAM: XR CHEST 2V HISTORY: DYSPNEA COMPARISON: None. TECHNIQUE: Two views of the chest were performed. FINDINGS: No pneumothorax, consolidative infiltrates, pleural effusions, or pulmonary edema. The heart is not enlarged. IMPRESSION: Unremarkable 2 view chest. Page 1 of 2 [facility] Patient Name: OLINDA MARTIN Sex: F : 1960 Exam Date: 10/05/2021 8:44 AM Exam Name: XR CHEST 2V Admitting Diagnosis(es): Created and electronically signed by: Samm Anna MD Signed Date: 10/05/2021 10:55 AM (CT) Dictated by: Samm Anna MD (CT) (CT) Page 2 of 2 Not Available [facility] 10/03/2022 06:08:39 Problems Name Problem SNOMED Code Status Onset Date Resolution Date Notes Provider Name and Address Organization Details Recorded Time Benign essential hypertension 7646042 Active Not Available [facility] 3 05:37:14 Pain in throat 446957946 Active 2021 Not Available [facility] 3 05:37:14 Insomnia 047554831 Active Not Available [facility] 3 05:37:14 Abdominal pain 03154778 Active Not Available [facility] 3 05:37:14 Venous insufficiency of leg 588169994 Active 2021 Not Available [facility] 3 05:37:14 Gastroesophag eal reflux disease 703298722 Active Not Available [facility] 3 05:37:14 Dyspnea 904588518 Active 2021 Not Available [facility] 3 05:37:14 Pure hypercholeste rolemia 549537143 Active Not Available [facility] 3 05:37:14 Malaise and fatigue 743197026 Active Not Available [facility] 3 05:37:14 Pain in calf 796068085 Active Not Available [facility] 3 05:37:14 Vitamin D deficiency 50639911 Active Not Available [facility] 3 05:37:14 Disorder of vitamin D 389813971 Active Not Available [facility] 3 05:37:14 Eosinophil count above reference range 247405709 Active Not Available [facility] 3 05:37:14 Anxiety 74747267 Active Not Available [facility] 3 05:37:14 Dysuria 83188610 Active 2022 Not Available [facility] 3 05:37:14 Upper respiratory infection 97576660 Active 2021 Not Available [facility] 3 05:37:14 Rhinitis 98376994 Active Not Available [facility] 3 05:37:14 Skin lesion 24221788 Active 2022 Not Available [facility] 3 05:37:14 Cough 60601369 Active 2023 LUCHO Vaneg[place], [place] - [facility] 4 16:02:44 Problem Notes None recorded. Medical Equipment None Reported. [...] azelastine 137 mcg (0.1 %) nasal spray Celoron 2 sprays every day by intranasa l [...] completed Not Available Not Available Not Available [place] 08/25 completed Not Available Not Available Not Available Bentyl 08/25 completed Not Available Not Available Not Available omeprazole 20 mg tablet,nava yed release Take 1 tablet every day by oral route. 01/24 completed Not Available Not Available Not Available Vitals Date Recorded Body mass index (BMI) Body height Heart rate Body temperature Body weight Systolic And Diastolic Provider Name and Address Organization Details Last Updated DateTime 3 33.6 kg/m2 163.83 cm 70 /min 97.9 [degF] 02779.8 8 g 130/80 mm[Hg] Not Available [facility] 3 05:59:36 Date Recorded Body mass index (BMI) Body height Heart rate Body temperature Body weight Systolic And Diastolic Provider Name and Address Organization Details Last Updated DateTime 2 35.7 kg/m2 163.83 cm 78 /min 97 [degF] 05356.9 9 g 108/66 mm[Hg] Not Available [facility] 3 05:59:35 Date Recorded Body mass index (BMI) Body height Heart rate Body temperature Body weight Systolic And Diastolic Provider Name and Address Organization Details Last Updated DateTime 2 35 kg/m2 163.83 cm 74 /min 96.8 [degF] 84954.6 2 g 124/70 mm[Hg] Not Available [facility] 3 05:59:35 Date Recorded Body height Body mass index (BMI) Body weight Body temperature Heart rate Systolic And Diastolic Provider Name and Address Organization Details Last Updated DateTime 3 163.83 cm 33.8 kg/m2 56024.4 7 g 97.6 [degF] 81 /min 124/70 mm[Hg] Leslie bergman RN [facility] [employer] 3 10:06:24 Date Recorded Body height Body mass index (BMI) Body weight Body temperature Heart rate Systolic And Diastolic Provider Name and Address Organization Details Last Updated DateTime 3 163.83 cm 33.5 kg/m2 76239.2 9 g 97.6 [degF] 74 /min 116/80 mm[Hg] LUCHO Bryant [employer] 3 10:10:38 Social History Question Answer Notes LastModified by Organization Details LastModified Time Tobacco Smoking Status Former Smoker quit 1992 Not Available [facility] 10/03/2022 05:54:51 Do You Have An Advance Directive? No MIGRATION.0301 [id number] Information not available 10/03/2022 What Is Your Level Of Caffeine Consumption? Moderate MIGRATION.0301 420223 Information not available 10/03/2022 In The 14 Days Before Symptom Onset, Have You Had Close Contact With A Laboratory-confi rmed COVID-19 While That Case Was Ill? No MIGRATION.0301 516563 Information not available 10/03/2022 In The 14 Days Before Symptom Onset, Have You Had Close Contact With A Person Who Is Under Investigation For COVID-19 While That Person Was Ill? No MIGRATION.0301 672316 Information not available 10/03/2022 What Type Of Diet Are You Following? REGULAR MIGRATION.0301 131391 Information not available 10/03/2022 What Is The Highest Grade Or Level Of School You Have Completed Or The Highest Degree You Have Received? [id number] MIGRATION.030 569553 Information not available 10/03/2022 Have There Been Any Changes To Your Family Or Social Situation? No MIGRATION.0301 115693 Information not available 10/03/2022 What Is The Fluoride Status Of Your Home? Unknown MIGRATION.0301 981346 Information not available 10/03/2022 When Did You Quit Smoking? 14+yearssincelastci ana MIGRATION.030 151560 Information not available 10/03/2022 Do You Use Insect Repellent Routinely? No MIGRATION.0301 469966 Information not available 10/03/2022 Where Do You Live? [place]House MIGRATION.0301 461208 Information not available 10/03/2022 Do You Have A Medical Power Of Caretaker Resort? No MIGRATION.0301 416847 Information not available 10/03/2022 What Was The Date Of Your Most Recent Tobacco Screening? 06/19/2023 [email or web address] Information not available 06/19/2023 Do You Have Any Pets? Yes MIGRATION.0301 725427 Information not available 10/03/2022 What Is Your Relationship Status? MIGRATION.0301 809508 Information not available 10/03/2022 Do You Use Your Seat Belt Or Car Seat Routinely? Yes MIGRATION.0301 380146 Information not available 10/03/2022 Do You Have Smoke And Carbon Monoxide Detectors In Your Home? Yes MIGRATION.0301 005128 Information not available 10/03/2022 Are You Passively Exposed To Smoke? No MIGRATION.0301 694710 Information not available 10/03/2022 Are There Any Smokers In Your House? No MIGRATION.0301 566956 Information not available 10/03/2022 What Types Of Sporting Activities Do You Participate In? None MIGRATION.0301 293403 Information not available 10/03/2022 Do You Use Sunscreen Routinely? No MIGRATION.0301 348803 Information not available 10/03/2022 Has Tobacco Cessation Counseling Been Provided? No MIGRATION.0301 213037 Information not available 10/03/2022 Have You Recently Traveled Abroad? No MIGRATION.0301 874991 Information not available 10/03/2022 Do You Have Any Dietary Restrictions? No MIGRATION.0301 380028 Information not available 10/03/2022 Sex: Female Functional Status Question Answer Note LastModified by [employer] ion Details LastModified Time Do you use any illicit or recreational drugs? No MIGRATION.946417 9998 Information not available 10/03/2022 Do you or have you ever used any other forms of tobacco or nicotine? No MIGRATION.481124 5636 Information not available 10/03/2022 What is your level of alcohol consumption? 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 Moderate MIGRATION.255643 4173 Information not available 10/03/2022 Mental Status Question Answer Note LastModified by Organizat ion Details LastModified Time Do you feel stressed (tense, restless, nervous, or anxious, or unable to sleep at night)? [id number] MIGRATION.[id number] 6 Information not available 10/03/2022 Family History Relationship Description Onset Age of this Age Resolved Age Notes LastModified by Organization Details LastModified Time Mother Heart disease 80 MIGRATION.249 [id number] Not available 10/03/2022 05:55:57 Father Heart disease 65 MIGRATION.612 4441800 Not available 10/03/2022 05:55:57 Father Diabetes mellitus MIGRATION.037 1501018 Not available 10/03/2022 05:55:57 Medical History Condition [...] SNOMED-CT Code Diagnosis ICD10 Code Diagnosis Note [id number] Chio Correa MD [facility] Internal Med [facility] [address] [address] 04/11/2021 00:00:00 05/13/2021 12:16:53 [id number] Chio Correa MD [facility] Internal Med [facility] [address] [address] 10/03/2021 00:00:00 10/21/2021 22:52:[id number] [facility] Internal Med [facility] [address] [facility] [address] [place] [address] 02/06/2022 00:00:00 02/06/2022 21:05:[id number] [facility] Internal Med [facility] [address] [place] [address] 1 08/15/2022 00:00:00 08/18/2022 21:36:[id number] [facility] Internal Med [facility] [address] [place] [address] 1 02/13/2023 09:53:24 02/13/2023 10:28:30 Anxiety 62952242 F41.9 Benign ess ential hypertension 8584941 I10 Pure hypercholesterolemia 471267266 E78.[id number] [facility] Internal Med [facility] [address] [place] [address] 1 06/19/2023 10:00:12 06/19/2023 11:21:15 Benign essential hypertension 1498178 I10 Anxiety 76168507 F41.9 Pure hypercholesterolemia 839809428 E78.00 Health Concerns Section Related Observation LastModified by Organization Detai ls LastModified Time None Recorded Concern Status LastModified by Organization Details LastModified Time None Recorded Advance Directives Directive N: Payers Insurance Date Sequence Insurance Name Policy Number Policy Ames Covered Member ID Ames Member ID Guarantor Name 12/15/2023 2 FOR LIFE ( - MEDICARE SUPPLEMENT) Olinda F Martin [id number] Olinda F Martin 11/25/2023 2 EAST - [employer] () Olinda F Martin [id number] Olinda F Martin 12/15/2023 1 [place] Olinda F Martin [id number] Olinda F Martin Notes Date Note Type Note Provider Name and Address Organization Details Recorded Time 02/13/2023 text/html Anxiety stable hypertension no headache or dizziness GERD 1 episode of breakthrough dyslipidemia tries to follow a low-fat Chio Correa MD [address], [place], [address], [employer] [facility] 02/14/2023 19:33:20 06/19/2023 text/html Anxiety stable hypertension no headache or dizziness GERD is better dyslipidemia tries to follow a low-fat. Rhinitis doing fine Chio Correa MD [address], [place], [address], [employer] [facility] 06/25/2023 17:10:13 OBGyn Episode No OBEpisode recorded.
--- OUTSIDE RECORDS SUMMARY | 2025-02-07 10:30 | XMS_ITS | Continuity of Care Document ---
Author Name [facility] Organization [facility] Care Team Providers Care Investment Banking Associate Name Role Phone [facility] Unavailable Unavailable Problems Combined list of problems [...] control w/ phenergan. ER w/ worsening episode. [facility] Allergies, Adverse Reactions, Alerts Combined list of allergies from Department of Defense and Veterans [facility] facilities. It does not include entries that were removed or entered in error. Substance Category Reaction Severity Reaction type Status Date Reported Comments Source No Known Allergies Drug allergy (disorder) active 12/08/[address] [place] [address]) Encounters Combined list of: 1) Encounters from Department of Veterans Affairs facilities going backup to the last 18 months, not all VA inpatient encounters are included; 2) Encounters from the Department of [facility] facilities going backup to 280 months. Location Location Details Encounter Type Encounter Number Reason For Visit Attending Provider ADM Date DC Date Status Disposition Source [address] [place] [address] [facility] levi Practice Non-GME FHI1) OUTPATIENT [id number] STOMACH CRAMPS WAKING UP NIGHTS LORENZO MONTEIRO 12/06 Released w/o Limitations [address] [place] [address] [facility])(F amily Practic e Non-GME FHI1) [address] [place] [address] Maico [facility] levi Practice Non-GME FHI1) TELE CONSULT [id number] pt wants lab results from SIMEON Shelton 12/[address] [place] [address] Maico [facility]F amily Practic e Non-GME FHI1) [address] [place] [address] Maico B [facility] levi Practice Non-GME FHI1) TELE CONSULT [id number] Lab Results SIMEON MONTOYA 12/08 [facility] Maico GRIMALDO ([facility])(F amily Practic e Non-GME FHI1) Social History Combined list of available smoking, tobacco, and other social history from Department of Defense and Veterans Affairs facilities. Social History Type Response Date Comment Sour e This section is an empty social history section. DoD
--- OUTSIDE RECORDS SUMMARY | 2025-02-07 10:31 | XMS_ITS | Referral Summary ---
Author Organization [facility] [address] Address [address] [place] [id number] Care Team Providers Care Director Investor Relations Name Role Phone Tacos Correa MD Primary Care Provider [phone] Allergies No known active allergies Medications lisinopril [...] 1:53 PM CDT Height 163.8 cm (5' 4.5) 01/15/2018 1:53 PM CDT Body Mass Index 34.78 01/15/2018 1:53 PM CDT Plan of Treatment Not on file Insurance Member Subscriber Plan / Payer (Ef fective 2024-Present) Name:Olinda Martin Relation to Subscriber:Spouse Name:RODNEY MARTIN Date of :1955 (Home) Address: [address] [place] [address] Payer ID:[id number] (NAIC) Group ID:Not on file Type:Q1 Labs Address: [facility] [address] [place] [address] Care Teams Director Investor Relations Relationship Specialty Start Date End Date Tacos Correa MD PCP - General Internal Medicine 01/15/18
--- OUTSIDE RECORDS SUMMARY | 2025-02-07 10:31 | XMS_ITS | Clinical Summary ---
Author Organization [place] [id number] Address [address] [place] [id number] Care Team Providers Care Solar Energy Engineer Name Role Phone Tacos Correa MD Primary Care Provider [phone] Allergies No known active allergies Medications lisinopril [...] Plan of Treatment Not on file Insurance MICMALI TAFTON CLAIMS Care Teams Solar Energy Engineer Relationship Specialty Start Date End Date Tacos Correa MD PCP - General Internal Medicine 01/15/18
--- OUTSIDE RECORDS SUMMARY | 2025-02-07 10:31 | XMS_ITS | Data Portability ---
Author Organization [facility] Lester Manzo Address [address] [place] [address] Care Team Providers Care Supervisor Dried Yeast Name Role Phone TACOS CORREA Primary Care Provider Assessment Encounter Date Assessment Date Assessment LastModified by Organization Details LastModified Time 12/05/2023 12/05/2023 Blood pressure doing well last blood work she says looks fine for cholesterol we will continue current therapy low-fat diet regular exercise and follow-up with me in 6 months [email or web address] Not available 12/05/2023 22:39:06 06/11/2024 06/11/2024 She will continue with her atorvastatin lisinopril and omeprazole mammogram ordered all questions answered her chronic medical problems appear stable follow up 6 months [email or web address] Not available 06/27/2024 21:40:13 12/03/2024 12/03/2024 We will continue current therapy dyslipidemia atorvastatin 40 mg GERD omeprazole we tried to deescalate to H2 did not help her symptoms got worse blood pressure lisinopril 5 doing well we can not give her a Prevnar or any pneumococcal vaccinations there are none in the clinic today and we are trying to get her colonoscopy from [facility] follow up six-month [email or web address] Not available 12/04/2024 21:32:29 Plan of Treatment Reminders Order Date Submit Date Provider Last Modified By Organization Details Last Modified Time Details Appointments ANY 15 2024 09:15A M Tacos Correa MD Not available Not available Not available Lab lipid panel, serum 2024 025 [facility], [address] [facility] [address], [place], [address], 12/09/2024 14:35:37 CBC w/ auto diff 2024 025 [facility], [facility] [address], [address], 12/08/2024 13:34:33 CMP, serum or plasma 2024 025 [facility], [address] [place] [address], [id number], 12/08/2024 13:28:32 CMP, serum or plasma 2023 024 [facility], [address] [place] [address], [id number], 06/24/2024 12:19:16 CBC w/ auto diff 2023 024 [facility], [address] [place] [address], [id number], 06/24/2024 12:20:40 lipid panel, serum 2023 024 [facility], [address] [place] [address], [id number], 06/26/2024 15:46:48 Referral None recorded. Procedures None recorded. Surgeries None recorded. Imaging MAMMO, screening , digital, bilateral 2023 024 [facility] (Mammography) , [address], [place], [address], 11/23/2024 16:40:53 Medication Orders None recorded. Patient TargetsNo targets recorded. Patient Instructions Encounter Date Encounter Id Patient Instructions Last Modified By Organization Details Last Modified Time 06/11/2024 [id number] A healthy lifestyle: care instructions Not available 06/11/2024 21:36:39 12/03/2024 [id number] A healthy lifestyle: care instructions [email or web address] Not available 12/03/2024 13:49:22 Reason for Referral None Reported. Results Created Date Observation Date Name Description Value Unit Range Abnormal Flag Note LastModifiedBy Organization Detail LastModifiedTime 03/26/20 24 03/26/2024 pap, IG + HR HPV HPV negati ve Not Available Not Available 17:12:00 08/03/20 24 08/03/2024 XR, foot No observ ation record ed. [facility] [address] [place], [address], 08/07/2024 10:31:35 08/03/20 24 08/03/2024 XR, foot No observ ation record ed. [facility] [address] [place], [address], 08/07/2024 10:31:11 11/24/19 25 11/23/2024 MAMMO , scree bridget, digit al, bilat eral No observ ation record ed. [facility] [address] [place], [address], 11/23/2024 22:30:58 Result Notes None recorded. Problems Name Problem SNOMED Code Status Onset Date Resolution Date Notes Provider Name and Address Organization Details Recorded Time Hyperlipidemia 09162061 Active 2023 DIONTE Vanegas, [facility] 4 11:46:10 Gastroesophage al reflux disease without esophagitis 931566401 Active 2023 DIONTE Vanegas, [facility] 4 11:46:10 Essential hypertension 91359971 Active 2023 DIONTE Vanegas, [place] [facility] 4 11:46:11 Problem Notes None recorded. Procedures Surgical History Date Name Laterality Status Provider Name and Address Organization Details Recorded Time Eye Surgery completed DIONTE Teran [facility] 12/05/2023 10:48:29 ligation of bilateral fallopian tubes completed DIONTE Teran [facility] 12/05/2023 10:48:51 Imaging Results None recorded. Procedure Notes None recorded. Medical Equipment None [...] in Arterial blood by Pulse oximetry Systolic And Diastolic Provider Name and Address Organization Details Last Updated DateTime 5 164.59 cm 31.7 kg/m2 36357.1 1 g 77 /min 97 % 97 % 122/66 mm[Hg] Suma Ruff [place] - [facility] 5 10:20:50 Date Recorded Body height Body mass index (BMI) Body weight Heart rate Oxygen saturation Oxygen saturation in Arterial blood by Pulse oximetry Systolic And Diastolic Provider Name and Address Organization Details Last Updated DateTime 4 164.59 cm 32.6 kg/m2 08915.7 9 g 68 /min 96 % 96 % 124/78 mm[Hg] Suma Ruff [place] [facility] 4 10:58:34 Date Recorded Body height Body mass index (BMI) Body weight Heart rate Oxygen saturation Oxygen saturation in Arterial blood by Pulse oximetry Systolic And Diastolic Provider Name and Address Organization Details Last Updated DateTime 164.59 cm 32.8 kg/m2 90635.4 6 g 80 /min 97 % 97 % 122/70 mm[Hg] Anna Flannery MA [facility] 10:49:32 Social History Question Answer Notes LastModified by Organizat ion Details LastModified Time Tobacco Smoking Status Former Smoker Suma Ruff [place] null, [place] - [facility] 12/05/2023 10:46:48 Do You Have An Advance Directive? No Information not available 12/05/2023 Are You Blind [...] No Information not available 12/05/2023 Are You Deaf [...] Been Provided? No Information not available 12/05/2023 Sex: Female Functional Status Question Answer Note LastModified by Organizat ion Details LastModified Time Do you use any illicit or recreational drugs? No Information not available 12/05/2023 Do you or have you ever used any other forms of tobacco or nicotine? No Information not available 12/05/2023 What is your level of alcohol consumption? None Information not available 12/05/2023 Are you currently employed? No Retired Information not available 12/05/2023 Are you able to care for yourself? Yes Information not available 12/05/2023 What is your exercise level? Occasional Information not available 12/05/2023 Mental Status Question Answer Note LastModified by Organization D etails LastModified Time Do you feel stressed (tense, restless, nervous, or anxious, or unable to sleep at night)? HL3977-2 Information not available 12/05/2023 Family History Relationship Description Onset Age of [...] SNOMED-CT Code Diagnosis ICD10 Code Diagnosis Note [id number] Tacos Correa MD [facility] - [facility] [address] [place] [address] 12/05/2023 10:26:35 12/05/2023 11:45:41 Hyperlipidemia 26186465 E78.5 Gastroesop hageal reflux disease without esophagitis 189633297 K21.9 Essential hypertension 31334649 I10 [id number] Tacos Correa MD [facility] [employer] [address] [place] [address] 06/11/2024 10:38:18 06/11/2024 11:48:16 Body mass index 30+ - obesity 540377761 Z68.32 BMI 32.8 Obesity 374428991 E66.9 Hyperlipidemia 52004477 E78.5 Gastroesop hageal reflux disease without esophagitis 177782941 K21.9 Essential hypertension 15526192 I10 Screening mammography 24 190537 Z12.31 [id number] Tacos Correa MD [facility] [employer] [address] [place] [address] 12/03/2024 09:55:36 12/03/2024 11:10:44 Obesity caused by energy imbalance 885793459 E66.811 E66.09 Z68.31 Obese class I 6658543380 64793 E66.811 Essential hypertension 99137933 I10 Hyperlipidemia 09076449 E78.5 Gastroesop hageal reflux disease without esophagitis 644404500 K21.9 Health Concerns Section Related Observation LastModified by Organization Detai ls LastModified Time None Recorded Concern Status LastModified by Organization Details LastModified Time None Recorded Advance Directives Directive N: Payers Insurance Date Sequence Insurance Name Policy Number Policy Ames Covered Member ID Ames Member ID Guarantor Name 11/14/2024 2 FOR LIFE () Olinda Martin [id number] Olinda Martin 12/03/2024 [place] [facility] - FQ Rodney A Martin [id number] Olinda Martin 12/03/2024 1 [place] Olinda Martin [id number] Olinda Martin 04/03/2024 2 FOR LIFE () Olinda Martin [id number] Olinda Martin 10/15/2024 3 FOR LIFE ( - MEDICARE SUPPLEMENT) Rodney Martin [id number] Olinda Martin 12/03/2024 2 FOR LIFE ( - MEDICARE SUPPLEMENT) Rodney Barry Martin [id number] Olinda Martin Notes Date Note Type Note Provider Name and Address Organization Details Recorded Time 12/05/2023 text/html 63-year-old with GERD and hyperlipidemia and hypertension to establish care she has been feeling fine Tacos Correa MD Attn: Accounting[address] [facility], [place], [address], [facility] 12/05/2023 22:39:50 06/11/2024 text/html GERD no complain ts taking her medicines fine hypertension blood pressure is controlled and she is asymptomatic dyslipidemia taking her atorvastatin and trying to follow a low-fat diet. Tacos Correa MD Attn: Accounting, [address] [facility], [place], [address], [facility] 06/27/2024 21:40:36 12/03/2024 text/html Hypertension controlled feels good dyslipidemia tries to watch her diet GERD no nausea no vomiting Tacos Correa MD Attn: Accounting[address] [facility], [place], [address], [facility] 12/04/2024 21:33:17 OBGyn Episode No OBEpisode recorded.
--- NOTE | 2025-02-07 10:33 | ED.SKABFB ---
HPI - Skin/Abscess/Foreign Bdy General Chief complaint: Skin/Abscess/Foreign Body Stated complaint: rash Time Seen by Provider: 02/07/25 10:32 Source: patient and family Mode of arrival: ambulatory Limitations: no limitations History of Present Illness HPI narrative: Patient is a 64-year-old female with left forehead and periorbital and infraorbital skin redness over the past week. There is also an area to the medial epicanthal fold region. No fever chills. No vision airy changes. She just started having some redness on the medial aspect of the eye. No pain in the eye. She has started to have pain in the dermatome regions of her left scalp as well. She has been to the urgent care and said that it was a allergic reaction to some poison oral while she was working in the [employer] a week ago. She was given steroids. She finished the steroids at this time. No antibiotics or antivirals have been given so far. MD complaint: rash ( Left face and scalp and possibly eye on the left) Onset (ago): week(s) ( 1) Location: head ( left) and face ( left) Severity: moderate Severity scale (1-10): 5 Quality: sharp Pain Consistency: constant Relieving factors: none Exacerbating factors: none Context: other ( patient was initially treated for contact dermatitis and on examination it appears to be shingles at this time of the left face and scalp with questionable left eye involvement) Associated symptoms: denies other symptoms Treatments prior to arrival: corticosteroid Related Data Home Medications ?Medication ?Instructions ?Recorded ?Confirmed ?Last Taken ?Type atorvastatin 40 mg tablet 40 mg PO QPM 03/26/24 03/26/24 Unknown History lisinopril 5 mg tablet 5 mg PO DAILY 03/26/24 03/26/24 Unknown History omeprazole 40 mg capsule,delayed 40 mg PO DAILY 03/26/24 03/26/24 Unknown History release Allergies Allergy/AdvReac Type Severity Reaction Status Date / Time No Known Allergies Allergy Verified 02/07/25 10:42 Review of Systems Review of Systems: All systems reviewed & are unremarkable except as noted in HPI and below Constitutional: Constitutional: Reports no additional constitutional complaints Eyes: Eyes: Reports no additional eye complaints ENT: Reports system reviewed and no additional complaints, except as documented Cardiovascular: Cardiovascular: Reports no additional cardiovascular complaints Respiratory: Respiratory: Reports no additional respiratory complaints Gastrointestinal: Gastrointestinal: Reports no additional gastrointestinal complaints Genitourinary: Genitourinary: Reports no additional female genitourinary complaints Musculoskeletal: Musculoskeletal: Reports no additional musculoskeletal complaints Integumentary/Breasts: Skin/Breast: Reports system reviewed and no additional complaints, except as docu Neurologic: Reports system reviewed and no additional complaints, except as documented Psychiatric: Psychiatric: Reports no additional psychiatric complaints Endocrine: Endocrine: Reports no additional endocrine complaints Hematologic/Lymphatic: Hematologic/Lymphatic: Reports no additional hematologic/lymphatic complaints Allergic/Immunologic: Allergic/Immunologic: Reports no additional allergic/immunologic complaints PMFSH Past Medical History Medical History Screening mammogram for breast cancer Hypertension Hyperlipemia Surgical History Surgical History History of tubal ligation Family History Family History Other Diabetes mellitus Family history of alcoholism Family history of cardiovascular disease Hypertension Social History Social History Smoking status: Former smoker Smoking end date: 08/05/92 Alcohol intake: never Substance use: never Substance use type: does not use Do You Feel Safe in your Home?: Yes Lack of Transportation: No Lack of Food: Never True Current Housing: I Have Housing Concerned About Future Housing: No Difficulty Paying Gas/Electric Bills: No Difficulty Paying for Meds: No Currently Unemployed: No Education: Bachelor's Degree Difficulty w/ Childcare or Family Care: No Living arrangements: with family Occupation/Education: retired Gender identity (if verbalized by the patient): Female Exam Const: General: healthy appearing Nutritional Appearance: well nourished Orientation/consciousness: patient oriented x3 Limitations: no limitations HENMT: Head: abnormal to inspection, no contusions, no hematomas and no lacerations Ears: external ears normal Face/Nose/Sinus: Normal external nose present Face and sinus: abnormal facial exam Eyes: Conjunctivae: abnormal conjunctivae Pupils: Equal, round and reactive pupils present EOM: EOMs intact bilaterally Direct Ophthalmoscopy: no photophobia Other: left medial eyeball has slight conjunctival red injection Neck: Neck: normal visual inspection Chest: Chest palpation & inspection: normal inspection of the chest Resp: Effort & Inspection: normal respiratory effort and not labored Auscultation: clear to auscultation bilaterally and no crackles Cardio: Rate: regular rate Rhythm: regular rhythm Heart sounds: no murmurs GI: Inspection: non-distended Auscultation: normal bowel sounds : General: Yes bladder normal to palpation Back/Spine/Pelvis: Back: no CVA tenderness Skin: General skin exam: normal color Rashes: rash noted Wounds: no wounds Other: left face has a demarcated left side only erythema with patches and there are a couple crusted over lesions; specifically the right medial canthal area has a crusted over lesion Neuro: General: patient oriented x3, moves all extremities, no meningeal signs, no focal motor deficits and CN's II-XI intact bilaterally Cranial nerves: Yes Nystagmus not present Speech: normal speech Gait exam (Neuro): Normal gait present Extrem: General: normal to inspection Psych: Mental Status: mental status grossly normal Affect: normal affect Attitude: cooperative Course Vital Signs Vital signs: Vital Signs Temperature 36.6 C 02/07/25 10:29 Pulse Rate 81 02/07/25 10:29 Respiratory Rate 18 02/07/25 10:29 Blood Pressure 138/77 02/07/25 10:29 Pulse Oximetry 94 02/07/25 10:29 Oxygen Delivery Room Air 02/07/25 10:29 Temperature 36.6 C 02/07/25 10:29 Pulse Rate 81 02/07/25 10:29 Respiratory Rate 18 02/07/25 10:29 Blood Pressure 138/77 02/07/25 10:29 Pulse Oximetry 94 02/07/25 10:29 Oxygen Delivery Room Air 02/07/25 10:29 MDM - Skin/Abscess/Foreign Bdy MDM Narrative Medical decision making narrative: patient is a 64-year-old female with a left face demarcated rash and questionable eye involvement. We will do Valtrex and Moriches at this time and give her a dose in the emergency room of both. Further, patient needs to see an business office associate or route manager as soon as possible in the next 24-48 hours. Discharge Plan Discharge Clinical Impression: Shingles Qualifiers: Herpes zoster complications: with other complications Qualified Code(s): B02.8 - Zoster with other complications Patient Disposition: Home Condition: Stable Instructions: Shingles (ED) Additional Instructions: Please follow-up with an eye doctor either an route manager or an business office associate in the next 24-48 hours. You will need an examination for shingles of the left eye. Patient Language: Pakistani Prescriptions: New valacyclovir [Valtrex] 1 gram tablet 1,000 mg PO TID 10 Days Qty: 30 0RF hydrocodone-acetaminophen 5-325 mg tablet 1 tablet PO Q8H PRN (Reason: pain) Qty: 20 0RF Rx Instructions: 1-2 tabs per dose No Action methylprednisolone [Medrol (Gilberto)] 4 mg tablets,dose pack See Rx Instructions .ROUTE .COMPLEX Qty: 21 0RF Rx Instructions: orally per package directions indomethacin 50 mg capsule 50 mg PO TID PRN (Reason: pain) Qty: 30 0RF Rx Instructions: administer with food or milk lisinopril 5 mg tablet 5 mg PO DAILY omeprazole 40 mg capsule,delayed release(DR/EC) 40 mg PO DAILY atorvastatin 40 mg tablet 40 mg PO QPM Follow-up/Referrals: Jose Cruz Correa, RT(R) [Researcher Registered] - Time of Disposition: 10:47
--- NOTE | 2025-02-07 10:35 | PC.NURSE ---
DR MURILLO AT THE BEDSIDE
--- OUTSIDE RECORDS SUMMARY | 2025-02-07 10:55 | XMS_ITS | Continuity of Care Document ---
Author Name [facility] Organization [facility] Care Team Providers Care Accounting Support Specialist Name Role Phone [facility] Unavailable Unavailable Problems Combined list of problems [...] control w/ phenergan. ER w/ worsening episode. [facility] Allergies, Adverse Reactions, Alerts Combined list of allergies from Department of Defense and [facility] facilities. It does not include entries that were removed or entered in error. Substance Category Reaction Severity Reaction type Status Date Reported Comments Source No Known Allergies Drug allergy (disorder) active 12/08/[address] [place] [address]) Encounters Combined list of: 1) Encounters from Department of Veterans Affairs facilities going backup to the last 18 months, not all VA inpatient encounters are included; 2) Encounters from the Department of [facility] facilities going backup to 280 months. Location Location Details Encounter Type Encounter Number Reason For Visit Attending Provider ADM Date DC Date Status Disposition Source [address] [place] [address] [facility] levi Practice Non-GME FHI1) OUTPATIENT [id number] STOMACH CRAMPS WAKING UP NIGHTS LORENZO MONTEIRO 12/06 Released w/o Limitations [address] [place] [address] [facility])(F amily Practic e Non-GME FHI1) [address] [place] [address] [facility] levi Practice Non-GME FHI1) TELE CONSULT [id number] pt wants lab results from SIMEON Shelton 12/[address] [place] [address] [facility]F amily Practic e Non[facility]GME FHI1) [address] [place] [address] [facility] levi Practice Non-GME FHI1) TELE CONSULT [id number] Lab Results SIMEON MONTOYA 12/08 [facility] [facility] ([facility]F amily Practic e Non-GME FHI1) Social History Combined list of available smoking, tobacco, and other social history from Department of Defense and Veterans Affairs facilities. Social History Type Response Date Comment Sour e This section is an empty social history section. DoD
--- OUTSIDE RECORDS SUMMARY | 2025-02-07 10:56 | XMS_ITS | Referral Summary ---
Author Organization [facility] [address] Address [address] [place] [address] Care Team Providers Care Uppers Edge Burnisher Name Role Phone Tacos Correa MD Primary Care Provider [phone] Allergies No known active allergies Medications lisinopril [...] MARTIN Date of :1957 (Home) Address: [address] [place] [address] Payer ID:[id number] (NAIC) Group ID:Not on file Type:CD Diagnostics Address: [facility] [address] [place] [address] Care Teams Uppers Edge Burnisher Relationship Specialty Start Date End Date Tacos Correa MD PCP - General Internal Medicine 01/15/18
--- OUTSIDE RECORDS SUMMARY | 2025-02-07 10:56 | XMS_ITS | Clinical Summary ---
Author Organization [place] [id number] [place] Address [address] [place] [address] Care Team Providers Care Hardware Engineer Name Role Phone Tacos Correa MD Primary Care Provider [phone] Allergies No known active allergies Medications lisinopril [...] Plan of Treatment Not on file Insurance [employer] CLAIM[employer] Care Teams Hardware Engineer Relationship Specialty Start Date End Date Tacos Correa MD PCP - General Internal Medicine 01/15/18
[2025-02-07] MEDS: HYDROcodone/acetaminophen (*CRX) 5-325 MG TABLET 1 TAB PO (10:59)
== END 2025-02-07 11:15 | disposition home or self-care (01) ==
LOC: CHSED 10:54
PROVIDERS: Emergency Provider Emergency Medicine; PCP Internal Medicine
DX: B02.8 Zoster with other complications (principal); E78.5 Hyperlipidemia, unspecified; I10 Essential (primary) hypertension; Z87.891 Personal history of nicotine dependence
CPT/HCPCS: 99283; A9270

== ENCOUNTER 2025-06-14 08:33 | Outpatient (CLI) | payer MEDICARE, OTHER, SELFPAY ==
--- OUTSIDE RECORDS SUMMARY | 2025-06-14 08:48 | XMS_ITS | Clinical Summary ---
Author Organization [place] [id number] [place] Address [address] [place] [address] Care Team Providers Care Construction Trades Contractor Name Role Phone Tacos Correa MD Primary Care Provider [phone] Allergies No known active allergies Medications lisinopril [...] Treatment Not on file Insurance Care Teams Construction Trades Contractor Relationship Specialty Start Date End Date Tacos Correa MD PCP - General Internal Medicine 01/15/18
[2025-06-14 08:57] LABS: Hematocrit 44.4 % (35.0-42.0); Hemoglobin 14.5 g/dL (11.7-13.8); Immature Granulocyte Percent A 0.3 % (0.0-0.0); Lymphocytes Absolute Auto 2.14 K/mm3 (1.10-4.50); Mean Corpuscular HGB Conc 32.7 g/dL (32-36); Mean Corpuscular Hemoglobin 29.9 pg (27.0-31.0); Mean Corpuscular Volume 91.5 fL (78.0-102.0); Nucleated Red Blood Cells Absolute Auto 0.00 K/mm3 (0.00-0.00); Nucleated Red Blood Cells Perc 0.0 % (0-0.0); Platelet Count Result 211 K/mm3 (150-420); Red Blood Count 4.85 M/mm3 (4.20-5.40); White Blood Count 7.0 K/mm3 (4.8-10.8)
[2025-06-14 09:27] LABS: Alanine Aminotransferase 24 U/L (6-35); Albumin Level 4.1 g/dL (3.5-5.1); Alkaline Phosphatase 76 U/L (38-126); Anion Gap 5 mmol/L (4-12); Aspartate Amino Transferase 24 U/L (14-36); Bilirubin,Total 1.3 mg/dL (0.2-1.3); Blood Urea Nitrogen 12 mg/dL (7-17); Calcium 9.9 mg/dL (8.4-10.2); Carbon Dioxide 28 mmol/L (22-30); Chloride 110 mmol/L (98-107); Cholesterol 178 mg/dL (0-200); Estimated Glomerular Filt Rate > 60; Glucose 93 mg/dL (65-110); HDL Direct 59 mg/dL; Osmolality Calculated 295 mOsm/kg (285-295); Potassium 4.3 mmol/L (3.4-5.0); Sodium 143 mmol/L (137-145); Total Protein 6.3 g/dL (6.3-8.2); Triglycerides 182 mg/dL (<150)
== END 2025-06-14 08:34 | disposition home or self-care (01) ==
LOC: CHSLAB 08:35
PROVIDERS: PCP Internal Medicine; Visit Provider Internal Medicine
DX: I10 Essential (primary) hypertension (principal)
CPT/HCPCS: 36415; 80053; 80061; 85025